=== PATIENT | female | born 1935 | race Caucasian/White ===

== ENCOUNTER 2023-05-12 13:40 | Emergency (ER) | payer OTHER, SELFPAY ==
[2023-05-12 13:44] VITALS: BP 171/73
[2023-05-12 14:03] VITALS: BMI 37.8
--- NOTE | 2023-05-12 14:46 | ED.SKININJ ---
HPI-Injury
<Julianna Powers, HOTEL ATTENDANT - Last Filed: 05/13/23 14:50>
General
Chief Complaint: Skin Problem
Source: patient and family (Daughter at bedside)
Exam Limitations: none
Time Seen by Provider: 05/12/23 14:22
Nursing documentation reviewed up to this point in time: agreed with
Travel History
Have you had any contact with someone who has COVID-19?: No
Do you have any symptoms of coronavirus? Fever > 100 degrees, chills, cough, shortness of breath, sore throat, loss of taste or smell, muscle aches, or headache?: No
History of Present Illness-Injury
Initial Injury comments:
87-year-old female from home with history of HTN, HLD, states she developed pain in the anterior aspect of her left lower leg this morning. Her noted that the area was red. She denies fever or chills. No known injury. Denies chest pain
or trouble breathing.
Past History
<Julianna Powers, HOTEL ATTENDANT - Last Filed: 05/13/23 14:50>
Past History
ED Past Medical History: HTN, Hypercholesterolemia, Other (Chronic cough) and Other (Urinary incontinence, osteoarthritis, constipation)
ED Past Surgical History: Gynecological (Total hysterectomy), Orthopedic (Left total hip replacement) and Other (Right breast lumpectomy, melanoma excision left leg)
Social History
Tobacco: Non-smoker
Alcohol: None
Drug: None
Personal:
Living: with family
Employment: Retired
Review of Systems
<Julianna Powers, HOTEL ATTENDANT - Last Filed: 05/13/23 14:50>
Review of Systems
Allergies reviewed?: Yes
All Other Systems: ROS reviewed and negative except as documented in HPI and ROS
Constitutional: Denies fever or chills
Respiratory: Denies trouble breathing
Cardiac: Denies chest pain
ABD/GI: Denies abdominal pain, nausea, vomiting or diarrhea
: Reports incontinence; Denies dysuria
Musculoskeletal: Reports edema (Both feet are puffy 2+ edema, lower extremities trace edema) and back pain (History of left-sided sciatica, recently finished a steroid taper for this)
Skin: Reports other (Tender red area anterior aspect of left lower leg)
Neurological: Denies headache
Phy Exam
<Julianna Powers HOTEL ATTENDANT - Last Filed: 05/13/23 14:50>
Physical Exam
Physical Exam:
GENERAL: No acute distress. A&Ox3.
CONSTITUTIONAL: Afebrile.
EYES: Clear, conjunctivae normal
ENMT: moist mucus membranes, Pharynx nl
RESPIRATORY: Regular respirations, nonlabored, lungs clear.
CARDIOVASCULAR: Regular rate and rhythm, no murmurs, no rubs.
GI: Soft, nontender, normal BS
MUSCULOSKELETAL: Moves with ease. Well perfused. +2 pitting edema dorsum of both feet, trace edema both lower legs.
SKIN: Warm, dry, pink. 15 x 15 erythematous tender, smooth area anterior LLE. Skin intact
PSYCH: Normal mood and affect. Well kept, interactive and appropriate
NEUROLOGIC: Awake, alert and oriented. No focal neurological deficits
Course
<Julianna Powers, HOTEL ATTENDANT - Last Filed: 05/13/23 14:50>
Orders/Labs/Results
Orders:
Orders
05/12/23 14:45
US Periph Venous LOWER Ext LT Urgent
Comment:
Reason For Exam: red, swollen, painful
05/12/23 14:58
Complete Blood Count/With Diff Urgent
Comprehensive Metabolic Panel Urgent
05/12/23 15:50
Doxycycline [Vibramycin] 100 mg PO NOW STA
Abnormal Lab Results
05/12/23
14:58
RBC 3.19 L 10^6/uL
(4.20-5.40)
Hgb 10.5 L g/dL
(12.0-16.0)
Hct 30.4 L %
(37.0-47.0)
MCH 32.9 H pg
(27.0-31.0)
Plt Count 116 L 10^3/uL
(130-400)
Absolute Lymphs (auto) 1.1 L 10^3/uL
(1.2-3.4)
Lymphocytes % 15.5 L %
(20.5-51.1)
BUN 27 H mg/dl
(7-17)
Glucose 132 H mg/dl
(70-99)
Total Protein 5.1 L g/dl
(6.3-8.2)
Albumin 2.8 L g/dl
(3.5-5.0)
05/12/23 14:58
05/12/23 14:58
Vital Signs
Initial and Last Documented VS:
Initial Vital Signs
Temp Pulse Resp BP Pulse Ox
98.1 F 74 16 171/73 96
05/12/23 13:44 05/12/23 13:44 05/12/23 13:44 05/12/23 13:44 05/12/23 13:44
Last Documented Vital Signs
Temp Pulse Resp BP Pulse Ox
98.1 F 74 16 150/59 95
05/12/23 13:44 05/12/23 13:44 05/12/23 13:44 05/12/23 15:30 05/12/23 15:45
Eating Disorder Psychologist consulted with Physician
Eating Disorder Psychologist consulted with physician?: Yes
Name of Physician Consulted: Neftaly
<Kenny Higginbotham, DO - Last Filed: 05/12/23 15:52>
Orders/Labs/Results
Orders:
Orders
05/12/23 14:45
US Periph Venous LOWER Ext LT Urgent
Comment:
Reason For Exam: red, swollen, painful
05/12/23 14:58
Complete Blood Count/With Diff Urgent
Comprehensive Metabolic Panel Urgent
05/12/23 15:50
Doxycycline [Vibramycin] 100 mg PO NOW STA
Abnormal Lab Results
05/12/23
14:58
RBC 3.19 L 10^6/uL
(4.20-5.40)
Hgb 10.5 L g/dL
(12.0-16.0)
Hct 30.4 L %
(37.0-47.0)
MCH 32.9 H pg
(27.0-31.0)
Plt Count 116 L 10^3/uL
(130-400)
Absolute Lymphs (auto) 1.1 L 10^3/uL
(1.2-3.4)
Lymphocytes % 15.5 L %
(20.5-51.1)
BUN 27 H mg/dl
(7-17)
Glucose 132 H mg/dl
(70-99)
Total Protein 5.1 L g/dl
(6.3-8.2)
Albumin 2.8 L g/dl
(3.5-5.0)
05/12/23 14:58
05/12/23 14:58
Vital Signs
Initial and Last Documented VS:
Initial Vital Signs
Temp Pulse Resp BP Pulse Ox
98.1 F 74 16 171/73 96
05/12/23 13:44 05/12/23 13:44 05/12/23 13:44 05/12/23 13:44 05/12/23 13:44
Last Documented Vital Signs
Temp Pulse Resp BP Pulse Ox
98.1 F 74 16 150/59 95
05/12/23 13:44 05/12/23 13:44 05/12/23 13:44 05/12/23 15:30 05/12/23 15:45
<Julianna Powers, HOTEL ATTENDANT - Last Filed: 05/13/23 14:50>
MDM/Problems Addressed
Differential Diagnosis Includes:
Cellulitis, DVT
MDM/Problems Addressed:
87-year-old female from home with history of HTN, HLD, states she developed pain in the anterior aspect of her left lower leg this morning. Her noted that the area was red. She denies fever or chills. No known injury. Denies chest pain
or trouble breathing
05/12/2023 1536 PM
CBC with no clinically significant abnormality.
CMP: BUN mildly elevated at 27, total protein and albumin are on the low side
Ultrasound left lower extremity reveals no DVT
05/12/[address] Higginbotham in to evaluate, agrees with home antibiotics and Lasix
Red area on LLE marked for observation.
Pt stable for discharge, is comfortable going home.
<Julianna Powers, HOTEL ATTENDANT - Last Filed: 05/13/23 14:50>
*Critical Care Note
Total Time (30-74mins, 75-104mins- exclusive of procedures): Not Applicable
ED Attending Note
<Julianna Powers, HOTEL ATTENDANT - Last Filed: 05/13/23 14:50>
-
Portions of this chart may have been created with voice recognition software.� Occasional wrong word or��sound alike� substitutions may have occurred due to the inherent limitations of voice recognition software.
<Kenny Higginbotham DO - Last Filed: 05/12/23 15:52>
ED Attending Note
Patient seen and examined by attending physician: Yes
I performed the substantive portion of visit, reviewed & personally made and approve the management plan that is documented in note by myself or REID.: Yes
ED Attending Note:
Patient is a 87-year-old female presents to the emergency department with redness of her left lower leg that started this morning. Patient was treated with prednisone for sciatica approximately 2 weeks ago and after that she seemed to develop edema
lower extremities. There is a family history of DVT. Patient denies any chest pain or shortness of breath. Patient denies fever chills or decreased appetite. On physical exam patient is no distress. Patient's abdomen is soft nontender. Lungs
are clear. Patient has +1 pitting edema pretibial and into the ankles and feet bilaterally. Patient has distal pulses. Patient does have erythema on the anterior inferior third of the left leg. Patient's lab work is essentially unchanged. Will
start the patient on low-dose Lasix and antibiotic. Patient's ultrasound is unremarkable
Discharge Plan
Departure
Patient Disposition: Home (Routine Discharge)
Date of Disposition: 05/12/23
Time of Disposition: 15:51
Patient with high blood pressure during this ER visit?: No
Discharge Problem:
Cellulitis of left lower extremity, Edema of both lower legs
Instructions: Swelling, Cellulitis (Skin Infection), Adult ED
Prescriptions:
New
doxycycline hyclate 100 mg capsule
100 mg PO BID Qty: 20 0RF
furosemide [Lasix] 20 mg tablet
20 mg PO DAILY Qty: 14 0RF
No Action
Centrum Silver Women 1 EACH tablet
1 ea PO DAILY
sennosides [senna] 1 TABLET tablet
2 tab PO BID PRN (Reason: constipation)
acetaminophen [Tylenol Extra Strength] 500 MG tablet
1,000 mg PO QID PRN (Reason: pain)
lisinopril 20 MG tablet
20 mg PO DAILY
simvastatin 20 MG tablet
20 mg PO HS
metoprolol tartrate 50 MG tablet
25 mg PO BID
escitalopram oxalate 5 MG tablet
5 mg PO DAILY
donepezil 5 mg Tablet
5 mg PO DAILY
Myrbetriq 25 mg Tablet Extended Release 24 Hr
25 mg PO DAILY
aspirin 81 mg Capsule
81 mg PO DAILY
Referrals:
Erika Sawant MD [Family Provider] - Call in 1-3 days for appt
Activity Restrictions/Additional Instructions:
As we discussed, I sent a prescription to your pharmacy for the antibiotic doxycycline to take twice a day for the next 10 days for the infection on your left lower leg.
I also sent a prescription to your pharmacy for Lasix to take daily to help decrease the swelling in your lower legs and feet. It will make you urinate more.
Call Dr. Sawant's office Sunday morning and make an appointment for sometime that week for a repeat check of your leg infection and your lower leg and feet swelling.
Return here immediately if the red area spreads more than 2 inches past the marked area, you develop fever or chills, worsening pain and swelling, vomiting or feeling sicker in any way.
Interventions
Interventions:
*Risk Screen - Suicide Last Done: 05/12/23 13:57
*General Assessment Last Done: 05/12/23 16:24
*Neglect/Abuse Screening Last Done: 05/12/23 13:57
ED- Fall Risk Assessment Last Done: 05/12/23 14:04
*ED COVID-19 Vaccine History Last Done: 05/12/23 13:44
*Nursing Disposition Last Done: 05/12/23 16:24
ED-Skin Assessment Last Done: 05/12/23 14:06
Discharge Date and Time
Discharge Date/Time: 05/12/23 16:24
[2023-05-12 15:06] LABS: % Basophils 0.4 % (0-2); % Eosinophils 2.3 % (0-6); % Immature Granulocytes 0.3 % (0-0.5); % Lymphocytes 15.5 % (20.5-51.1); % Monocytes 9.1 % (1.7-9.3); % Neutrophils 72.4 % (42.2-75.2); Absolute Eosinophils 0.2 10^3/uL (0-0.7); Absolute Lymphocytes 1.1 10^3/uL (1.2-3.4); Absolute Monocytes 0.6 10^3/uL (0.1-0.6); Hematocrit 30.4 % (37.0-47.0); Hemoglobin 10.5 g/dL (12.0-16.0); Mean Corp Hgb Conc. 34.5 g/dL (33.0-37.0); Mean Corpuscular Hgb 32.9 pg (27.0-31.0); Mean Corpuscular Volume 95.3 fL (81.0-99.0); Nucleated Red Blood Cells % 0 %; Platelet Count 116 10^3/uL (130-400); Red Blood Cell Count 3.19 10^6/uL (4.20-5.40); Red Cell Dist. Width 13.7 % (11.5-14.5); White Blood Cell Count 6.9 10^3/uL (4.8-10.8)
[2023-05-12 15:25] LABS: ALT (SGPT) 24 U/L (0-35); AST (SGOT) 20 U/L (14-36); Albumin 2.8 g/dl (3.5-5.0); Alkaline Phosphatase 49 U/L (38-126); Blood Urea Nitrogen 27 mg/dl (7-17); Calcium 8.7 mg/dl (8.4-10.2); Carbon Dioxide 27 mmol/L (22-30); Chloride 105 mmol/L (98-107); Estimated Creatinine Clearance 51 ml/min; Glucose 132 mg/dl (70-99); Potassium 4.1 mmol/L (3.5-5.1); Sodium 138 mmol/L (135-145); Total Bilirubin 0.4 mg/dl (0.2-1.3); Total Protein 5.1 g/dl (6.3-8.2); eGFR > 60.00
[2023-05-12 15:30] VITALS: BP 150/59
[2023-05-12] MEDS: VIBRAMYCIN 100 MG PO (16:08)
== END 2023-05-12 16:24 | disposition home or self-care (01) ==
LOC: EMR 13:40
PROVIDERS: Registered Nurse; EMERGENCY PHYSICIAN Emergency Medicine; FAMILY PHYSICIAN Internal Medicine
DX: L03.116 Cellulitis of left lower limb (principal); R60.0 Localized edema; M79.662 Pain in left lower leg; I10 Essential (primary) hypertension; E78.00 Pure hypercholesterolemia, unspecified; M19.90 Unspecified osteoarthritis, unspecified site; R05.3 Chronic cough; Z96.642 Presence of left artificial hip joint; Z85.820 Personal history of malignant melanoma of skin; Z88.8 Allergy status to other drugs, medicaments and biological substances; Z79.82 Long term (current) use of aspirin
CPT/HCPCS: 99284; 80053; 85025; 93971

== ENCOUNTER 2023-08-01 11:02 | Outpatient (RCR) | payer OTHER, SELFPAY | END 2023-08-01 23:59 | disposition home or self-care (01) | LOC: ROT 11:02 | PROVIDERS: ATTENDING PHYSICIAN Nurse Practitioner Adult Health; FAMILY PHYSICIAN Internal Medicine | DX: R41.89 Other symptoms and signs involving cognitive functions and awareness (principal); Z73.6 Limitation of activities due to disability | CPT/HCPCS: 97167 ==

== ENCOUNTER 2024-07-14 13:00 | Inpatient (IN) | payer OTHER, SELFPAY ==
[2024-07-12 19:58] VITALS: BP 186/80; BMI 36.7
[2024-07-12 20:27] LABS: % Basophils 0.3 % (0-2); % Eosinophils 2.5 % (0-6); % Immature Granulocytes 0.2 % (0-0.5); % Lymphocytes 16.3 % (20.5-51.1); % Monocytes 8.6 % (1.7-9.3); % Neutrophils 72.1 % (42.2-75.2); Absolute Eosinophils 0.2 10^3/uL (0-0.7); Absolute Lymphocytes 1.4 10^3/uL (1.2-3.4); Absolute Monocytes 0.8 10^3/uL (0.1-0.6); Absolute Neutrophils 6.3 10^3/uL (1.4-6.5); Hematocrit 33.1 % (37.0-47.0); Hemoglobin 11.3 g/dL (12.0-16.0); Mean Corp Hgb Conc. 34.1 g/dL (33.0-37.0); Mean Corpuscular Hgb 32.3 pg (27.0-31.0); Mean Corpuscular Volume 94.6 fL (81.0-99.0); Mean Platelet Volume 9.6 fL (7.4-10.4); Nucleated Red Blood Cells % 0 %; Platelet Count 166 10^3/uL (130-400); Urine Albumin 1+ (Neg - Trace); Urine Bilirubin Negative (Negative); Urine Character Clear (Clear); Urine Color Yellow; Urine Glucose Negative (Negative); Urine Ketone Negative (Negative); Urine Leukocyte Negative (Negative); Urine Nitrite Negative (Negative); Urine Occult Blood Negative (Negative); Urine Specific Gravity 1.025 (<1.030); Urine Urobilinogen Negative (Neg - 1+); White Blood Cell Count 8.8 10^3/uL (4.8-10.8)
[2024-07-12 20:41] LABS: ALT (SGPT) 21 U/L (0-35); AST (SGOT) 20 U/L (14-36); Albumin 3.6 g/dl (3.5-5.0); Alkaline Phosphatase 55 U/L (38-126); Blood Urea Nitrogen 24 mg/dl (7-17); Calcium 9.1 mg/dl (8.4-10.2); Carbon Dioxide 27 mmol/L (22-30); Chloride 105 mmol/L (98-107); Estimated Creatinine Clearance 44 ml/min; Glucose 119 mg/dl (70-99); Potassium 4.4 mmol/L (3.5-5.1); Sodium 137 mmol/L (135-145); Total Bilirubin 0.6 mg/dl (0.2-1.3); Total Protein 6.2 g/dl (6.3-8.2); eGFR 48.63
[2024-07-12 20:51] LABS: Urine Red Blood Cell 0-2 /HPF (0-2); Urine White Cell 0-2 /HPF (0-5)
[2024-07-12 20:52] LABS: Urine Bacteria Few (Negative); Urine Mucus Moderate
[2024-07-12 21:00] VITALS: BP 185/73
--- NOTE | 2024-07-12 21:52 | ED.GENMED ---
History of Present Illness
General
Chief Complaint: Change in Mental Status
Source: spouse and family
Time Seen by Provider: 07/12/24 21:10
History of Present Illness
History of Present Illness:
88-year-old female presents to the emergency room due to confusion, difficulty speaking. Patient does have some level of cognitive decline. However the family feels like she has had a dramatic change in the past 24 hours. Patient indicated to
them she also had a headache. Patient unable to provide much in the way of history.
Past History
Past History
ED Past Medical History: HTN, Hypercholesterolemia, Other (Chronic cough) and Other (Urinary incontinence, osteoarthritis, constipation)
ED Past Surgical History: Gynecological (Total hysterectomy), Orthopedic (Left total hip replacement) and Other (Right breast lumpectomy, melanoma excision left leg)
Social History
Tobacco: Non-smoker
Alcohol: None
Drug: None
Personal:
Living: with family
Employment: Retired
Phy Exam
Physical Exam
Physical Exam:
General: Awake, slow to answer questions, somewhat confused, appears stated age and chronically ill
Vitals: Hypertensive
Head: Atraumatic
Eyes: Pupils equal, EOMI
Throat: Airway intact, no exudates
Neck: Trachea midline
Lungs: Clear and equal b/l
Heart: Regular rate, no murmurs
Abd: Soft, Nontender, No pulsatile mass
Neuro: Cranial nerves intact, muscle strength equal bilaterally
Skin: Warm, dry, no rash
Extremities: pulses equal b/l, 2+ edema
Course
Orders/Labs/Results
Orders:
Orders
07/12/24 20:15
CT Head W/o Iv Contrast Urgent
Comment:
Reason For Exam: confusion
07/12/24 20:20
CMP [Comprehensive Metabolic Panel] Urgent
Complete Blood Count/With Diff Urgent
Urinalysis Reflex To Culture Urgent
Date Specimen was Collected: 07/12/24
Time Specimen was Collected: 20:15
Urine Microscopic Reflex Cult Urgent
07/12/24 22:12
Acetaminophen [Tylenol] 1,000 mg PO NOW STA
07/12/24 23:41
Labetalol HCl [Trandate] 10 mg IV NOW STA
07/13/24
Electrocardiogram (*1) Stat
Comment: DONE
07/13/24 01:30
Admit/Transfer Patient As Directed
Co-Sign Provider:
Level of Care: Observation services
Assign to:: Telemetry
Physician / Group: John
Diagnosis: Confusion
Reason for Telemetry: CVA/TIA
Date to Stop Telemetry: 07/16/24
Time to Stop Telemetry: 11:00
PRN Pain Medication Management As Directed
May give lesser potent ordered pain med per pt: Yes
preference::
Protocol:: Medication orders for pain may be administered in a
manner that supports deferring to patient preference
when the pt is:
- Requesting an ordered lesser potent pain medication.
Least to most potent pain medications are defined
as: acetaminophen < NSAID < tramadol < opioids
(morphine, oxycodone, hydromorphone).
- Requesting a lesser dose of the same medication IF
ORDERED.
- Requesting a less intrusive route of administration
if both routes are prescribed by the provider (PO <
IV).
07/13/24 01:31
Code Status As Directed
Resuscitation Status: Full Code
07/13/24 02:41
Acetaminophen [Tylenol] 650 mg PO Q4HPRN PRN
Dextrose 50%-Water [Dextrose 50% Syringe] 12.5 grams IV [id number] PRN
Furosemide [Lasix] 20 mg PO Q48H
Glucagon [GlucaGen] 1 mg IM PRN PRN
07/13/24 02:41
Case Management Consult ONCE
Case Management Consult: Discharge Planning
Activity As Directed
Activity Level: Ambulate
With Assistance
Bedside Glucose Monitoring As Directed
Frequency: AC&HS
Additional Instructions:: Change to q6h if pt on TPN, tube feeding or not eating
EKG with chest pain [ECG as needed] As Directed
ECG as needed for:: Chest Pain
I/O [Intake/ Output] As Directed
Frequency: Per unit guidelines
Neurological Checks As Directed
Frequency: q4h
Pneumatic Compression Sleeves As Directed
Type: Knee high
Vital Signs As Directed
Frequency: Per unit guidelines
Weight As Directed
Frequency: Daily
Oxygen Therapy [O2 Therapy] [RESP] Routine
Titrate/Wean O2 to maintain O2 sat greater than (%): 94
Ot Eval And Treat Routine
PT Consult [Pt Eval And Treat] Routine
Activity Level: Ambulate
With Assistance
Speech Therapy Eval & Treat Routine
DX Deep Vein Thrombosis Video Routine
07/13/24 03:23
TSH Reflex To Free T4 Routine
07/13/24 03:25
Pt Screening Request from Irene Routine
07/13/24 06:00
MR Brain Without Contrast IN AM
Comment:
Reason For Exam: CVA / TIA
Recent pill cam endoscopy?: No
07/13/24 06:17
Basic Metabolic Panel IN AM
Cardiovascular Evaluation IN AM
Complete Blood Count/No Diff IN AM
Glycohemoglobin (HgbA1c) Routine
Magnesium Routine
Comment: ADD ON
NT-proBNP Routine
Comment: ADD ON
07/13/24 06:52
Metoprolol [Lopressor] 5 mg IV NOW STA
07/13/24 07:01
CR Chest Portable - 1 View Stat
Comment:
Reason For Exam: SOB
Reason Study Needs to be Portable: Unable to Transport
07/13/24 07:02
Ipratropium/Albuterol Sulfate [Duoneb] 3 ml INH R Q4HPRN PRN
07/13/24 07:03
Diphenhydramine [Benadryl] 6.25 mg IV NOW STA
07/13/24 07:30
Insulin Aspart Corrective Low [Novolog Flexpen-Low Resistance] See Protocol SC AC
07/13/24 08:00
Aspirin Chewable [Low Strength Aspirin] 81 mg PO DAILY
Donepezil [Aricept] 5 mg PO DAILY
Escitalopram Oxalate [Lexapro] 5 mg PO DAILY
Lisinopril [Zestril] 30 mg PO DAILY
Metoprolol [Lopressor] 50 mg PO BID
07/13/24 13:31
COVID-19 Antigen Urgent
Source: Nasal Swab
07/13/24 13:35
Influenza A+B Rapid Molecular Urgent
YAYA Source: Nasal Swab
Specimen Description:
07/13/24 14:33
CARDIOLOGY CONSULT Routine
Consulting Provider: Gerson Kruger
Was physician already notified: Yes
Reason for consult: New Afib paroxysmal
07/13/24 14:42
NEUROLOGY CONSULT Routine
Consulting Provider: Mariano Guzman
Was physician already notified: Yes
Reason for consult: Eval risk of bleeding from cerebral amyloid angiopathy /chronic SAH withAC
07/13/24 Dinner
IDDSI 4 - Pureed
At Your Request: Limited Participation
07/13/24 15:45
Amiodarone [Cordarone] 900 mg DEXTROSE 5% PVC-free BAG [D5W PVC-free BAG] 500 ml IV PER PROTOCOL
Initial Dose in mg/min:: 1
Duration of initial dose (hours):: 6
Subsequent dose in mg/min:: 0.5
Duration of subsequent dose (hours):: 18
Maximum dose in mg/min:: 1
Hold and notify provider if:: Heart rate < 60 BPM or SBP < 90 mmHg or MAP < 60 mmHg
07/13/24 18:00
Atorvastatin [Lipitor] 10 mg PO QPM
07/14/24 06:[address] Non Medication Order As Directed
Physician Order: One time order 07/14/24 at 6am to restart amiodarone gtt with rate of 0.5mg/min, then to
follow amiodarone order/ protocol
Above order entered?: Yes
07/14/24 08:54
Metoprolol [Lopressor] 100 mg PO BID
07/14/24 10:14
Metoprolol [Lopressor] 100 mg PO NOW STA
07/14/24 10:24
Echo 2D MMode Color/Doppler Routine
Reason for Study: AF
07/14/24 20:00
Amiodarone [Pacerone] 400 mg PO BID
07/16/24 11:00
DC Protocol for Telemetry ONCE
Abnormal Lab Results
07/12/24 07/13/24 07/13/24
20:20 06:17 07:14
WBC 11.7 H 10^3/uL
(4.8-10.8)
RBC 3.50 L 10^6/uL 3.66 L 10^6/uL
(4.20-5.40) (4.20-5.40)
Hgb 11.3 L g/dL 11.7 L g/dL
(12.0-16.0) (12.0-16.0)
Hct 33.1 L % 34.6 L %
(37.0-47.0) (37.0-47.0)
MCH 32.3 H pg 32.0 H pg
(27.0-31.0) (27.0-31.0)
Absolute Monos (auto) 0.8 H 10^3/uL
(0.1-0.6)
Lymphocytes % 16.3 L %
(20.5-51.1)
BUN 24 H mg/dl 21 H mg/dl
(7-17) (717)
Creatinine 1.1 H mg/dL
(0.6-1.0)
Glucose 119 H mg/dl 130 H mg/dl
() ()
Hemoglobin A1c 6.3 H %
(4.0-5.6)
Total Protein 6.2 L g/dl
(6.3-8.2)
Triglycerides 151 H mg/dl
(10-149)
Urine Bacteria (Reflex) Few A
(Negative)
Urine Albumin (Reflex) 1+ A
(Neg - Trace)
POC Glucose 154 H mg/dl
()
07/13/24 07/13/24 07/13/24
12:43 17:25 21:11
WBC
RBC
Hgb
Hct
MCH
Absolute Monos (auto)
Lymphocytes %
BUN
Creatinine
Glucose
Hemoglobin A1c
Total Protein
Triglycerides
Urine Bacteria (Reflex)
Urine Albumin (Reflex)
POC Glucose 158 H mg/dl 153 H mg/dl 169 H mg/dl
() () ()
07/14/24 07/14/24
07:13 11:43
WBC
RBC
Hgb
Hct
MCH
Absolute Monos (auto)
Lymphocytes %
BUN
Creatinine
Glucose
Hemoglobin A1c
Total Protein
Triglycerides
Urine Bacteria (Reflex)
Urine Albumin (Reflex)
POC Glucose 173 H mg/dl 193 H mg/dl
(70-99) (70-99)
07/13/24 06:17
07/13/24 06:17
Vital Signs
Initial and Last Documented VS:
Initial Vital Signs
Temp Pulse Resp BP Pulse Ox
98.9 F 69 30 186/80 93
07/12/24 19:58 07/12/24 19:58 07/12/24 19:58 07/12/24 19:58 07/12/24 19:58
Last Documented Vital Signs
Temp Pulse Resp BP Pulse Ox
98.7 F 88 18 145/65 95
07/14/24 15:14 07/14/24 15:14 07/14/24 15:14 07/14/24 15:14 07/14/24 15:14
MDM/Problems Addressed
Differential Diagnosis Includes:
Progression of dementia, CVA, UTI, electrolyte abnormality
MDM/Problems Addressed:
Head CT shows no acute abnormalities. Labs do not show a reason for her declining. Perhaps the patient has had a small CVA not detectable on CAT scan. Seems most likely to be a progression of her chronic cognitive disorder however. Will
hospitalize the patient for further evaluation workup to exclude urgent process
*Radiology
Radiology exam reviewed: radiology read reviewed
*Pulse Oximetry
Patient hypoxic: no
*Satellite Installer Interpretation
Rate: normal
Interpretation: normal
Rhythm: sinus
*Critical Care Note
Total Time (30-74mins, 75-104mins- exclusive of procedures): Not Applicable
ED Attending Note
-
Portions of this chart may have been created with voice recognition software.� Occasional wrong word or��sound alike� substitutions may have occurred due to the inherent limitations of voice recognition software.
Discharge Plan
Departure
Patient Disposition: Admit
Date of Disposition: 07/12/24
Time of Disposition: 23:45
Admit to: IMU
Presentation/result/management discussed w/ accepting MD/DO: Hospitalist
Condition: Fair
Discharge Problem:
Acute confusion, Hypertension, uncontrolled
Interventions
Interventions:
*Risk Screen - Suicide Last Done: 07/12/24 19:58
*General Assessment Last Done: 07/12/24 19:58
*Neglect/Abuse Screening Last Done: 07/12/24 19:58
*ED- Fall Risk Assessment Last Done: 07/12/24 19:58
*ED COVID-19 Vaccine History Last Done: 07/12/24 21:01
*Nursing Disposition Last Done: 07/13/24 02:34
ED- Pulmonary Assessment Last Done: 07/12/24 21:01
ED- Neurological Assessment Last Done: 07/12/24 21:01
ED- Cardiac Assessment Last Done: 07/12/24 21:01
ED Swallowing Screen Last Done: 07/12/24 21:10
Discharge Date and Time
Discharge Date/Time: 07/13/24 02:35
[2024-07-12 22:24] VITALS: BP 188/84
[2024-07-12] MEDS: TYLENOL 1000 MG PO (23:01)
[2024-07-12 23:48] VITALS: BP 173/71
[2024-07-12] MEDS: TRANDATE 10 MG IV (23:48)
[2024-07-13] VITALS (14 sets, daily range): BP systolic 140–185; BP diastolic 58–130; PULSE 74–75; O2SAT 93; BMI 35.9
--- NOTE | 2024-07-13 01:33 | HPS.HSE ---
Family Physician
-
Family Physician: Erika Sawant
Chief Complaint
-
Confusion, Gait Dysfunction
History of Present Illness
Patient is an 88y F with PMH significant for hypertension, DM-II and dementia who presents to ED for evaluation of increased confusion and gait dysfunction. History obtained primarily from daughter at the bedside due to patient's dementia /
confusion. Daughter states that patient has had significant functional and cognitive decline over the past several months. Within the past few weeks, she has at times not recognized her own family members. She has a chronic tremor - mostly of the
LUE - which has been extensively evaluated as an outpatient with no definitive etiology discovered.
This evening, patient was ambulating in the home and found that she was 'leaning to the right'. He assisted her to the bathroom and contacted his daughters. They advised him to call 911 for concern of possible stroke symptoms.
In the ED, patient has no recall of these events and is not able to state where she is or any of her medical histories.
She is resting comfortably and appears in no acute distress.
Medical History
Past Medical History
Past Medical History: Reports Other
Additional Past Medical History:
Hypertension
DM-II
Prior CVA (diagnosed by imaging - asymptomatic)
Anxiety / Depression
Melanoma
Endometrial Cancer
Obesity
Dementia
Past Surgical History: Reports Other
Additional Past Surgical History:
Right Breast Biopsy
Tubal Ligation
D&C
Robotic Hysterectomy / BSO
Left BETTINA
Melanoma Excision
Social History
Tobacco: Non-smoker
Alcohol: None
Drug: None
Personal:
Living: With Family
Family History
Family History: Other (Mother: CVA Daughter: CVA)
Allergies / Home Medications
Allergies reflects when Allergies were last updated in [facility].
Home Medications with original date entered in [facility]
Allergy/Medication List:
Allergies
Allergy/AdvReac Type Severity Reaction Status Date / Time
Calcium Channel Blocking Allergy Shortness Verified 07/12/24 20:14
Agent Dilt of breath,
weakness,
tired
verapamil Allergy Shortness Verified 07/12/24 20:14
of breath,
weakness,
tired
Home Medications
[id number] 8 mg-folic 400 mcg-K 50 mcg-lutein 300 mcg tablet (Centrum Silver Women) 1 ea PO DAILY Supplement 06/06/18
acetaminophen 500 mg tablet (Tylenol Extra Strength) 1,000 mg PO QID PRN pain 03/15/20
escitalopram oxalate 5 mg tablet 5 mg PO DAILY Mental Health/Anxiety 03/15/20
lisinopril 20 mg tablet 30 mg PO DAILY Blood pressure 03/15/20
metoprolol tartrate 50 mg tablet 50 mg PO BID Blood pressure 03/15/20
sennosides 8.6 mg tablet (senna) 2 tab PO BID PRN constipation 03/15/20
simvastatin 20 mg tablet 20 mg PO HS High cholesterol 03/15/20
aspirin 81 mg capsule 81 mg PO DAILY 05/12/23
donepezil 5 mg tablet 5 mg PO DAILY 05/12/23
mirabegron 25 mg tablet,extended release 24 hr (Myrbetriq) 50 mg PO DAILY 05/12/23
furosemide 20 mg tablet (Lasix) 20 mg PO .EVERYOTHERDAY 07/13/24
Review of Systems
-
History Source: Patient and Family
A 12 point ROS was completed and negative except as noted: Yes
Constitutional: Reports Fatigue; Denies Fever or Chills
Respiratory: Denies Cough or Trouble Breathing
Cardiac: Denies Chest Pain or Palpitations
Abdomen/GI: Denies Abdominal Pain, Nausea, Vomiting or Diarrhea
: Reports Frequency and Urgency; Denies Dysuria or Flank Pain
Musculoskeletal: Denies Joint Pain or Edema
Neurological: Reports Headache; Denies Dizzy
Psych: Reports Depression, Anxiety and Dementia
Physical Exam
Vital Signs
Vital Signs
Temp Pulse Resp BP Pulse Ox
98.9 F 72 27 168/62 95
07/12/24 19:58 07/13/24 01:00 07/13/24 01:00 07/13/24 01:00 07/13/24 00:30
Physical Exam
General: Other (88y F in no acute distress.)
HEENT: Moist mucous membranes and PERRLA
Respiratory: Clear; No Wheezes, Rales or Rhonchi
Cardiac: S1/S2, Regular Rhythm and Murmur (II/ STACY)
GI: Soft, Non Tender, Non Distended and Normal Bowel Sounds
Musculoskeletal: No Clubbing, No Cyanosis and No Edema
Neuro: Awake, Alert, Nonfocal/grossly intact and Other (Tremor of the LUE that waxes / wanes - not clearly associated with intent. No focal weakness / sensory deficit.); No Oriented
Psych: Apparent Dementia
Laboratory Results
-
07/12/24 20:20
07/12/24 20:20
Laboratory Results
Total Bilirubin 0.6 mg/dl (0.2-1.3) 07/12/24 20:20
AST 20 U/L (14-36) 07/12/24 20:20
ALT 21 U/L (0-35) 07/12/24 20:20
Alkaline Phosphatase 55 U/L (38-126) 07/12/24 20:20
Impression/Plan
-
A/P: Patient is an 88y F with PMH significant for HTN, DM-II and dementia who presents to ED for evaluation of confusion and ataxia.
Ataxia
Confusion
- Observe overnight for further evaluation and treatment.
- Seems likely that current symptoms are due to progression of dementia.
- Family notes both prior episodes of confusion and gait dysfunction prior to today.
- CT head unremarkable in the ED. Exam non-focal.
- Check MRI in the AM.
- PT / OT evaluations.
- CM evaluation for home services +/- placement.
- Continue daily ASA, statin, etc.
- Continue Aricept.
Benign Hypertension
- BP elevated on initial arrival and has improved after dose of labetalol here in the ED.
- Patient apparently received none of her medications today (family has today's PillPack completely full).
- Resume usual BP medications and follow for improvement. Adjust regimen as needed.
DM-II
- Not on any listed DM medications.
- Follow glucose. Check A1C.
OAB
- Hold Myrbetriq given uncontrolled hypertension.
Senile Dementia
Anxiety / Depression
- Continue current medications.
DVT Prophylaxis: SCDs
Code Status: Full
--- NOTE | 2024-07-13 03:00 | PTCARENOTE ---
Pt received from ED at 0245 via stretcher. Pt pleasant, AAOX1, VVS, and pulled over into bed from stretcher. Pt absent of pain at this time. Pt bed in lowest position and call pollock within reach. Pt educated on importance of call pollock usage, pt
confused. Pt on bed alarm - alarm plugged in. Will continue with current plan of care.
[2024-07-13] MEDS: LASIX 20 MG PO (03:30)
[2024-07-13 04:25] LABS: TSH Reflex To Free T4 2.05 uIU/ml (0.47-4.68)
[2024-07-13] MEDS: LOPRESSOR 5 MG IV (07:00)
[2024-07-13 07:09] LABS: Hematocrit 34.6 % (37.0-47.0); Hemoglobin 11.7 g/dL (12.0-16.0); Mean Corp Hgb Conc. 33.8 g/dL (33.0-37.0); Mean Corpuscular Volume 94.5 fL (81.0-99.0); Mean Platelet Volume 9.8 fL (7.4-10.4); Platelet Count 160 10^3/uL (130-400); Red Blood Cell Count 3.66 10^6/uL (4.20-5.40); White Blood Cell Count 11.7 10^3/uL (4.8-10.8)
--- NOTE | 2024-07-13 07:10 | W.PN.UPDATE ---
Update Note
Progress Note Update
Reported by the nursing staff that the patient is a-fib with hr in 140s, bp 150/80, SPO2 94% on RA. afebrile. Patient currently on Metoprolol BID.
On exam, patient is tachypneic, Complaining of sob, denies chest pain. Lung sound noted with Wheezing.
-Ekg done, bmp result is pending, mag and BNP added to the lab.
-Duo nebs PRN ordered for sob and wheezing
-Chest x-ray, covid and flu test ordered.
-One time 5mg of IV Lopressor given.
-Patient currently on telemetry.
[2024-07-13 07:16] LABS: Glucose - Point of Care 154 mg/dl (70-99)
[2024-07-13 08:01] LABS: Blood Urea Nitrogen 21 mg/dl (7-17); Calcium 9.1 mg/dl (8.4-10.2); Carbon Dioxide 28 mmol/L (22-30); Chloride 102 mmol/L (98-107); Estimated Creatinine Clearance 53 ml/min; Glucose 130 mg/dl (70-99); HDL Cholesterol 42 mg/dl; LDL Cholesterol, Calculated 93 mg/dl; Magnesium 1.9 mg/dl (1.6-2.3); Potassium 3.9 mmol/L (3.5-5.1); Sodium 137 mmol/L (135-145); Total Cholesterol 165 mg/dl (50-199); Triglyceride 151 mg/dl (10-149); Very Low Density Lipoprotein 30 mg/dl (0-30); eGFR > 60.00
[2024-07-13 08:10] LABS: NT-proBNP 1090 pg/ml
[2024-07-13] MEDS: BENADRYL 6.25 MG IV (08:17)
[2024-07-13] MEDS: LOW STRENGTH ASPIRIN 81 MG PO (08:19)
[2024-07-13] MEDS: ARICEPT 5 MG PO (08:19)
[2024-07-13] MEDS: ZESTRIL 30 MG PO (08:20)
[2024-07-13] MEDS: LEXAPRO 5 MG PO (08:21)
[2024-07-13] MEDS: LOPRESSOR 50 MG PO ×2 (08:21→20:14)
[2024-07-13] MEDS: NOVOLOG FLEXPEN-LOW RESISTANCE 1 UNITS SC ×3 (08:26→17:29)
[2024-07-13 12:44] LABS: Glucose - Point of Care 158 mg/dl (70-99)
[2024-07-13 13:55] LABS: COVID-19 Antigen Negative (Negative)
--- NOTE | 2024-07-13 14:44 | W.PN.HOSP.TC ---
Today's Communication/Plan
-
Consult cardiology
Consult neurology
Assessment / Plan
Assessment / Plan
A/P: Patient is an 88y F with PMH significant for HTN, DM-II and dementia who presents to ED for evaluation of confusion and ataxia.
Ataxia
Confusion
Weakness
- MRI of the brain shows no evidence of acute stroke
-Afebrile and no white count on admission. UA negative. Chest x-ray without evidence of infection.
-New atrial fibrillation paroxysmal noted and unclear if the weakness is from tachycardia.
-Check PT eval. She is known to have Parkinson's disease with dementia.
New onset of paroxysmal fibrillation
16 beat of V. tach versus SVT with aberrancy
-Hemodynamically stable
-Continue the beta-ann
-Consult cardiology
Parkinson disease with dementia-follows with a local neurologist. MRI of the brain shows chronic hemosiderin deposition in the cerebral sulci raising concern for chronic subarachnoid hemorrhage versus cerebral amyloid angiopathy. As the patient
may benefit from anticoagulation for new A-fib , consult neurology for the risk of anticoagulation.
Benign Hypertension
- BP elevated on initial arrival and has improved
- Resume usual BP medications and follow for improvement. Adjust regimen as needed.
DM-II
- Not on any listed DM medications.
- Follow glucose. Check A1C.
OAB
- Hold Myrbetriq given uncontrolled hypertension.
Senile Dementia
Anxiety / Depression
- Continue current medications.
DVT Prophylaxis: SCDs
Code Status: Full
Discussed with family
Discussed with cardiology and neurology
Total time spent on today's encounter was 52 minutes which included time spent in counseling the patient/family regarding diagnosis and treatment plan as listed above, goals of care, and symptom management. Case was discussed with nursing staff,
specialists, and care coordinators/case management. All labs and imaging personally reviewed by me. Remainder the time spent in detailed review of previous records, lab data, imaging, and other medical provider documentation.
Anticipated Discharge: 24 - 48 hours
Subjective/Interval History
-
Date of Service: July 13, 2024
Pleasantly confused. Not sure why she is in the hospital. She knows she is in the hospital. Family at bedside.
She was brought in because she was feeling weak and leaning towards the right and they were concerned for a stroke.
Objective Data
-
Labs:
Laboratory Results
07/13/24
06:17
WBC 11.7 H
Hgb 11.7 L
Hct 34.6 L
Plt Count 160
Sodium 137
Potassium 3.9
Chloride 102
Carbon Dioxide 28
BUN 21 H
Creatinine 0.9
Glucose 130 H
Calcium 9.1
Vital Signs:
Vital Signs
Temp Pulse Resp BP Pulse Ox
98.5 F 76 16 149/70 95
07/13/24 11:10 07/13/24 11:10 07/13/24 11:10 07/13/24 11:10 07/13/24 11:10
I&O
07/12/24 07/13/24 07/14/24
06:59 06:59 06:59
Output Total 400 / 400
Balance -400 / -400
Review of Systems
-
Unable to obtain full review of systems at this time due to: Other (Due to cognitive impairment)
Respiratory: Denies Trouble Breathing
Cardiac: Denies Chest Pain or Palpitations
Abdomen/GI: Denies Abdominal Pain, Nausea or Vomiting
Neuro: Denies Dizzy or Headache (Had headache at home)
Physical Exam
-
General: Comfortable
Respiratory: Clear to Auscultation and Non Labored Respirations; Negative Accessory Resp Muscle Use
Cardiac: Regular Rhythm and S1/S2
GI: Soft and Nontender
Neuro: AO x 3 and No Motor Deficits
Psych: Calm and Confused; Negative Agitated
Data Reviewed
-
Labs: Labs Reviewed by me
--- NOTE | 2024-07-13 14:51 | CON.NEURO ---
Neuro Assessment/Plan
Assessment
Patient with subacute worsening of cognition and prior history of significant dementia with changes by MRI of the brain which are suggestive of amyloid angiopathy as well as chronic right frontal hemorrhagic infarct.
The patient's dementia may be vascular based on amyloid angiopathy. The patient's tremor is most likely functional and non-parkinsonian based on DaTscan being normal in the past and the nature on examination
Plan
Would continue the patient on aspirin 81 mg daily
Would avoid anticoagulation despite presence of atrial fibrillation due to high risk for conversion of known amyloid angiopathy into hemorrhagic lesions of greater size and number
Would discontinue donepezil as that medication is unlikely to be providing any significant benefit at this time based on the patient's significant cognitive dysfunction
Continue atorvastatin 10 mg daily
Will follow-up as needed
Consultation
Order
Date of Consultation: 07/13/24
Requesting Provider: Hospitalist
Reason for Consult: Dementia
Subjective/Objective
Subjective Data
Date of Service: July 13, 2024
Adapted from my consult in 02/2020:
84 year old female who has presented to the hospital after suffering a mechanical fall. Patient reports she is an active 84-year-old whom denies using a cane or walker to ambulate. She denies a history of falls. She reports she was at her daughter's
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 She reports there was a step down out the door and she leaned forward and lost her balance resulting in a fall striking her head on the concrete porch.
She denies having loss of consciousness, dizziness lightheadedness or weakness of her extremities prior to the fall. She reports she had 2 big bumps on the back of her head and decided to seek medical attention. HCT in the emergency department
demonstrated cortical contusion of the left frontal lobe and left parietal occipital lobe.
The time of this examination patient reports that she is feeling well. She denies having any dizziness, lightheadedness, headache, weakness numbness or tingling of her extremities, visual changes or speech difficulty. She feels that her balance is
at baseline. Hematomas on the back of her head are reportedly smaller today.
Abrupt onset of minor head injury with striking left forehead
CT of head demonstrated small left frontal hemorrhagic stroke, repeated head CT demonstrated near total resolution
�No need to check MRI head
�Would restart ASA in 24 hours although no significant outpatient need from neurological perspective
�May use Atorvastatin low dose since it is not clear that the patient has high-risk for future cerebrovascular event
Adapted from office notes last from 06/2023:
86-year-old female with a past medical history of fall with head injury in February 2020 during which time she sustained a frontal lobe hemorrhage. She fell after leaning forward outside her front door to get a package off a bench. There were steps
in front of the door and when she leaned forward she lost balance and fell 2 steps down striking her head on concrete. She was seen by the neurology team on consult at [facility]. Head CT on March 16, 2020, showed a single 12 mm helical
hemorrhage consistent with hemorrhagic contusion over the posterior lateral left frontal convexity with a stable old 3 cm left frontal infarct as well as a 5 mm left frontal parietal occipital scalp hematoma. This is superimposed on mild diffuse
cortical atrophy.
Today she said presents for evaluation for memory loss and tremor. She is concerned as her father on onset of Parkinson's in his 80s and her paternal great grandmother had severe Alzheimer's. She states that over the past year to year and a
half she has experienced a tremor in her left hand only that was initially present with sustained posture and intention but has now progressed over time and is present at rest as well. It does not interfere with her everyday life. She has not
noticed any change in her handwriting or her sense of smell. No clear symptoms of RBD. She does continue to have some near falls but has not had a severe fall since her fall in February 2020.
In terms of memory, her short-term is affected more so than her long-term memory. Her family often has to tell her something and then repeated a few minutes later as she does not remember the details. She also has some word finding
difficulty. This is been progressively worsening over the past 6 months. She denies any hallucinations. She lives with her and has no issues with her ADLs. She uses [facility] to keep her medications straight and has not missed them on a
regular basis.
09/29/20: Today she notes that her left upper extremity tremor has worsened significantly and now she often wakes up with it in the morning. She has been doing physical therapy with improvement in her gait. She had a normal TSH and B12 level
drawn on September 22, 2020. B12 level was 671 she had an MRI brain done with and without contrast on September 09, 2020, at [facility] which showed 'two-point once in the medial region of chronic encephalomalacia in the anterolateral right frontal
lobe involving cortical jones matter and subcortical white matter with associated hemosiderin deposition. Mild to moderate hemosiderin deposition was seen in the sulci of both superior frontal lobes consistent with chronic bilateral subarachnoid
hemorrhage. 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 Greer's
office on August 26, 2020, which showed 'mild neuro psych logical deficits with deficits in processing speed, verbal encoding, verbal fluency, executive functioning and visual detail discrimination.' It was felt that her deficits were due to mild brain
injury following her fall in February 2020. It was also stated that 'I cannot rule out that her previous stroke was also contributory.' She was also noted to have a minor anxiety condition. It was recommended that she undergo an on road driving test
to examine her ability to safely operate a motor vehicle given her slow processing speed and visual detail discrimination.
JOSE scan 07/2020 - Mild asymmetric at posterior right putamen suspicious for striatal domanergic deficit.
Evaluation with Dr. Coley:
'Interval history:
Pt seen in the office today with her daughter. She reports that her tremor might improve on Sinemet partially. No resting tremor. Tremor mainly occurs with posturing and eating. She has been taking 1 tab three time a day. No SE of Sinemet. Pt
has no stiffness. She has falls in the past after ICH from fall in late 2019. But no fall recently.
No hallucinations. Memory has been stable. She completed PT. It was suggested the at she start the parkinson's LSVT BIG program in January.'
Telehealth evaluation with Eden Lua, 04/29/2021:
'TELEHEALTH ENCOUNTER: video -ECW
LOCATION OF PROVIDER: office
LOCATION OF PATIENT: HOME
Patient initiated the visit. The patient verbally consented to the virtual check-in.
DURATION:8 minutes
Pt encounter today via telemedicine. Pt has been doing well on Sinemet 1 tab TID. She has repeated JOSE scan ordered 05/20/2021. Tremor has significantly improved. She has no complaints today. She denies recent falls. She denies hallucinations
or GI issues. Memory has been stable.'
08/29/21: She never had the driving evaluation done and would find the on road driving evaluation too stressful; she says she is willing to do the OT evaluation through . She had a repeat JOSE scan done at [facility], but we never got the result.
She continues to take Sinemet. She never started taking ASA. When she is upset, her tremor gets worse. She also reports that twice over the last 2-3 her tremor has spread to involve her RUE when it previously affected only the left. Her daughter has
taken over the bills, and her now monitors her cooking. She has been sleeping more and has stopped driving long distances.
Evaluation with Eden Lua, 09/30/2021:
'Patient seen today in the office with her . Her daughter was called as she was unable to be here today. Patient continues with Sinemet 1 tablet 3 times a day. She denies any adverse side effects except afternoon dose states she has a
bad taste because she is he not taking it with food. Symptoms are unchanged. We still did not get DaTscan from [facility]. She still does not have occupational driving screen. '
11/18/21: She is having her driving assessment done on November 29. No falls. Mood has been fairly stable; she is occasionally a bit down. She continues to take Lexapro. She is seeing urology for incontinence. We finally received the results from
[facility] regarding her DaTscan which was normal and not suggestive of any parkinsonian syndrome. Her daughter subsequently cut back her Sinemet to twice daily, and she has been on this for about a week. She is interested in taking medication for her
memory.
(01/19/2022)
Patient seen in the office with her daughter. Patient did start Aricept 5 mg at night for memory stabilization. She does report she had a few bouts of diarrhea. She only started the Aricept about 2 weeks ago. She has not seen any decline in
her memory. Not yet had driving evaluation completed. Her has been ill. She has stopped her Sinemet since her last appointment. She has not seen any increase in any Parkinson's-like symptoms.
(06/01/2022)
Patient seen in the office today with her daughter. She and her daughter both feel her memory is stable. She has been taking Aricept 5 mg. GI symptoms have resolved. She has had no recent falls. She has had no hallucinations. She only has a
tremor when she is severely upset.
(12/21/2022)
Pt seen in the office today with her daughter. She has continued on Aricept 5 mg daily. Dosage was previously not increased d/t GI issues (unclear if it was secondary to medications). Patient and family feel that memory has declined time and
are now willing to try increased dosage. Her daughter feels she may have sleep apnea
She admits to sleep she is taking 2 'sleep gummies a night' (which are actually probiotics) as well as 2 magnesium pills. She did have a fall 2 months ago when she fell out of bed. Her only injury was her finger, she was seen at urgent care.
Her finger has healed well.
Today (07/05/2023)
TELEHEALTH ENCOUNTER : Video ECW
Pt encounter via telemedicine with her daughters. They report that memory has continued to decline. She continues on Aricept 10 mg daily. She seems to be tolerating this well. She seems out of it at times. She did have sleep study completed
that did show significant sleep apnea. She has not been using mask or machine. She has not had any recent falls.
~~~~
Patient returned to this hospital's emergency department due to worsening confusion. The confusion is described as having been significantly worse in the last 24 hours with the patient also experiencing significant headache. This consultation was
placed to determine if the patient would be a candidate for anticoagulation as the patient was found during this hospitalization to have acute onset of paroxysmal atrial fibrillation.
Objective Data
Vital Signs
Temp Pulse Resp BP Pulse Ox
36.9 C 76 16 149/70 95
07/13/24 11:10 07/13/24 11:10 07/13/24 11:10 07/13/24 11:10 07/13/24 11:10
Lab Results
07/13/24 06:17
07/13/24 06:17
Sodium 137 mmol/L (135-145) 07/13/24 06:17
Potassium 3.9 mmol/L (3.5-5.1) 07/13/24 06:17
BUN 21 mg/dl (7-17) H 07/13/24 06:17
Glucose 130 mg/dl (70-99) H 07/13/24 06:17
Calcium 9.1 mg/dl (8.4-10.2) 07/13/24 06:17
Pnu-C-Txahjxbnwsk Pept Cancelled 07/13/24 07:09
LDL Cholesterol, Calc 93 mg/dl 07/13/24 06:17
Patient Allergies
Calcium Channel Blocking Agent Dilt Allergy (Verified 07/12/24 20:14)
Shortness of breath, weakness, tired
verapamil Allergy (Verified 07/12/24 20:14)
Shortness of breath, weakness, tired
Review of Systems
-
Unable to obtain full review of systems at this time due to: Dementia
History Source: Patient
All other systems: Reviewed and negative
Neuro: Negative Dizzy or Headache
Physical Exam
-
General: No Apparent Distress, Obese, Appears Stated Age and Wearing Oxygen
Eyes: Round OU, [place] Conjunctivae and No Ptosis
HEENT: Anicteric and Moist Mucous Membranes
Neck: Full Range of Motion
Respiratory: No Dyspnea
Cardiac: No JVD
GI: Non-distended
Skin: Unremarkable
Extremities: No Clubbing, No Cyanosis and No Edema
Psych: Negative Intact Judgement/Insight
Extended Neurological Exam
Mood & Affect: Mood Unremarkable and Affect Unremarkable
Attention Span & Concentration: Awake, Alert, Interactive, Unable to Perform 2 Step Request and Other (Moderate difficulty with single step requests)
Memory: Able to Recall (Own name), Reduced (For recall of month and year as well as location, although she does recall that this is a hospital) and Unable to Recall Personal History
Tremor: Hand Tremor Absent, Distal and Amplitude (medium, crescendo-decrescendo, with action and without action, left hand more than right)
Involuntary Movement: None
Speech: Quality Unremarkable and Severely Reduced Output
Cranial Nerve II: Left Eye: Pupillary Reactivity Unremarkable, Pupillary Size Unremarkable and Visual Peter Intact
Cranial Nerve II: Right Eye: Pupillary Reactivity Unremarkable, Pupillary Size Unremarkable and Visual Peter Intact
Cranial Nerves III, IV, : Extraocular Movement: Reduced (Upgaze bilaterally, otherwise intact)
Cranial Nerve VII: Facial Symmetry: Normal Facial Symmetry
Cranial Nerve VIII: Hearing: Unremarkable Hearing to Normal Conversational Volume
Muscle Strength, Overall: Full Throughout
Muscle Bulk & Tone: Bulk Unremarkable and Tone Unremarkable
Pronator Drift: No Drift in Upper Extremities and No Drift in Lower Extremities
Deep Tendon Reflexes: Absent Throughout
Cold Sensation: Unable to Assess
Vibration Sensation: Unable to Assess
Touch Sensation: Unremarkable
Coordination: Reaches for Objects without Difficulty
Babinski Sign: Absent Bilaterally
Gait & Station: Negative Up from Seated Without Problem
Data Reviewed
-
MRI Head: Report Reviewed and Image Reviewed
Labs: Report Reviewed
Reviewed with: Physician, Patient and Family
Old Records: Summarized
Medications
-
Active Medications
Generic Name Dose Route Start Last Admin
Trade Name Freq PRN Reason Stop Dose Admin
Acetaminophen 650 mg 07/13/24 02:41
Acetaminophen 325 Mg Tablet PO 08/10/24 02:40
Q4HPRN PRN
Mild Pain / Temp > 101
Albuterol/Ipratropium 3 ml 07/13/24 07:02
Ipratropium 0.5/Albuterol 3 Mg (3 Ml Ampul) INH
R Q4HPRN PRN
SOB or wheezing
Protocol
Aspirin 81 mg 07/13/24 08:00 07/13/24 08:19
Aspirin 81 Mg Chewable Tablet PO 08/10/24 07:59 81 mg
DAILY MADHURI Administration
Atorvastatin Calcium 10 mg 07/13/24 18:00
Atorvastatin (Lipitor) 10 Mg Tablet PO 08/10/24 17:59
QPM MDAHURI
Dextrose 12.5 grams 07/13/24 02:41
Dextrose 50% (0.5 Grams/Ml) 50 Ml Syringe IV 08/10/24 02:40
[id number] PRN
hypoglycemia
Protocol
Donepezil HCl 5 mg 07/13/24 08:00 07/13/24 08:19
Donepezil 5 Mg Tablet PO 08/10/24 07:59 5 mg
DAILY MADHURI Administration
Escitalopram Oxalate 5 mg 07/13/24 08:00 07/13/24 08:21
Escitalopram 5 Mg Tablet PO 08/10/24 07:59 5 mg
DAILY MADHURI Administration
Furosemide 20 mg 07/13/24 02:41 07/13/24 03:30
Furosemide 20 Mg Tablet PO 08/10/24 02:40 20 mg
Q48H MADHURI Administration
Glucagon 1 mg 07/13/24 02:41
Glucagon 1 Mg Vial IM 08/10/24 02:40
PRN PRN
hypoglycemia
Protocol
Insulin Aspart 0 units 07/13/24 07:30 07/13/24 13:33
Insulin Aspart Low Resistance 300 Units/3 Ml Pen.Injctr SC 08/10/24 07:29 1 units
AC MADHURI Administration
Protocol
Lisinopril 30 mg 07/13/24 08:00 07/13/24 08:20
Lisinopril 20 Mg Tablet PO 08/10/24 07:59 30 mg
DAILY MADHURI Administration
Metoprolol Tartrate 50 mg 07/13/24 08:00 07/13/24 08:21
Metoprolol 50 Mg Regular Release Tablet PO 08/10/24 07:59 50 mg
BID MADHURI Administration
Home Medications
�Medication �Instructions �Recorded
pfmduhsq-eyde-brum 8 mg-folic 400 1 ea PO DAILY Supplement 06/06/18
mcg-K 50 mcg-lutein 300 mcg tablet
(Centrum Silver Women)
acetaminophen 500 mg tablet 1,000 mg PO QID PRN pain 03/15/20
(Tylenol Extra Strength)
escitalopram oxalate 5 mg tablet 5 mg PO DAILY Mental Health/Anxiety 03/15/20
lisinopril 20 mg tablet 30 mg PO DAILY Blood pressure 03/15/20
metoprolol tartrate 50 mg tablet 50 mg PO BID Blood pressure 03/15/20
sennosides 8.6 mg tablet (senna) 2 tab PO BID PRN constipation 03/15/20
simvastatin 20 mg tablet 20 mg PO HS High cholesterol 03/15/20
aspirin 81 mg capsule 81 mg PO DAILY 05/12/23
donepezil 5 mg tablet 5 mg PO DAILY 05/12/23
mirabegron 25 mg tablet,extended 50 mg PO DAILY 05/12/23
release 24 hr (Myrbetriq)
furosemide 20 mg tablet (Lasix) 20 mg PO .EVERYOTHERDAY 07/13/24
Past History
Past History
ED Past Medical History: Cancer (Endometrial 2017), CVA (Chronic right frontal lobe), HTN, Hypercholesterolemia, Psychiatric (Major depression), Other (Chronic cough, dementia, obstructive sleep apnea, osteopenia) and Other (Urinary incontinence,
osteoarthritis, constipation)
ED Past Surgical History: Gynecological (Total hysterectomy), Orthopedic (Left total hip replacement) and Other (Right breast lumpectomy, melanoma excision left leg)
Social History
Tobacco: Non-smoker
Alcohol: None
Drug: None
Personal:
Living: with family
Employment: Retired
Family History
Family History: Other (Reviewed and noncontributory)
--- NOTE | 2024-07-13 15:19 | CM ---
Addendum entered by Gisell Monsalve 07/13/24 15:53:
[facility] form explained to daughterJimmy; form signed @ 1547
SNF preferences identified: #1 [facility]; #2 [facility]; #3 [facility]; referrals sent via [facility]
Plan: Discharge to SNF pending bed availability and AUTH approval
Addendum entered by Gisell Monsalve 07/13/24 15:40:
PT recommends SNF
Daughters given list of facility options to consider; instructed to identify 3 sites to sent referrals
DaughterJimmy, given phone # for CM office and will call in AM with site preferences
Original Note:
Initial assessment completed with saul Marquez
Primary Contacts are daughters Jimmy # [phone]; and Shalini ([employer]) # [phone]
[facility] [address]
Daughter reported that patient lives with 90 year old independent in a split level home; 0 steps to enter; 5 steps between levels; mother's bedroom and bath on upper level; bath has walk-in shower w/ grab bars and seat
Daughter reported that patient no longer attempts to do anything for herself; daughters and spouse bathe, dress and completed ADLs
Patient refuses to use device when ambulating. During the day, patient stays on lower level family room; bathroom available; bilateral railings on stairs
No history of SNF or Home Health utilization
Family will transport home
Discharge plan unknown at this time; CM will monitor and support as needed
--- NOTE | 2024-07-13 15:37 | CON.CAR ---
Consultation
Consultation Request
Date/Time Consultation Requested: 07/13/24, 230pm
Date/Time Consultation Performed: 07/13/24, 3pm
Requesting Provider: Jakob
Performing Provider: Saskia
Reason for Consultation: A fib with RVR
Medical History
-
Chief Complaint: confusion, weakness
History of Present Illness:
88 yo female with PMH of dementia, hemorrhagic stroke, cerebral amlyoid angiopathy, HTN, hyperlipidemia is admitted with weakness/confusion. We are consulted for A fib with RVR.
Patient answers basic questions. Family present and provides additional information.
Past Medical History
Past Medical History: Cancer (endometrial), CVA (hemorrhagic), HTN and Hypercholesterolemia
Past Surgical History: Gynecological (hysterectomy) and Orthopedic (left hip)
Social History
Tobacco: Non-Smoker
Family History
Family History: Early CAD (none)
Allergies / Home Medications
Allergy/AdvReac Type Severity Reaction Status Date / Time
Calcium Channel Blocking Allergy Shortness Verified 07/12/24 20:14
Agent Dilt of breath,
weakness,
tired
verapamil Allergy Shortness Verified 07/12/24 20:14
of breath,
weakness,
tired
�Medication �Instructions �Recorded �Confirmed �Type
yackojrt-heus-yrqd 8 mg-folic 400 1 ea PO DAILY Supplement 06/06/18 07/13/24 History
mcg-K 50 mcg-lutein 300 mcg tablet
(Centrum Silver Women)
acetaminophen 500 mg tablet 1,000 mg PO QID PRN pain 03/15/20 07/13/24 History
(Tylenol Extra Strength)
escitalopram oxalate 5 mg tablet 5 mg PO DAILY Mental Health/Anxiety 03/15/20 07/13/24 History
lisinopril 20 mg tablet 30 mg PO DAILY Blood pressure 03/15/20 07/13/24 History
metoprolol tartrate 50 mg tablet 50 mg PO BID Blood pressure 03/15/20 07/13/24 History
sennosides 8.6 mg tablet (senna) 2 tab PO BID PRN constipation 03/15/20 07/13/24 History
simvastatin 20 mg tablet 20 mg PO HS High cholesterol 03/15/20 07/13/24 History
aspirin 81 mg capsule 81 mg PO DAILY 05/12/23 07/13/24 History
donepezil 5 mg tablet 5 mg PO DAILY 05/12/23 07/13/24 History
mirabegron 25 mg tablet,extended 50 mg PO DAILY 05/12/23 07/13/24 History
release 24 hr (Myrbetriq)
furosemide 20 mg tablet (Lasix) 20 mg PO .EVERYDAY 07/13/24 07/13/24 History
Review of Systems
-
Unable to obtain full review of systems at this time due to: Dementia
History Source: Patient and Family
Neurological: Dizzy and Weakness
Physical Exam
Vital Signs
Temp Pulse Resp BP Pulse Ox
98.5 F 76 16 149/70 95
07/13/24 11:10 07/13/24 11:10 07/13/24 11:10 07/13/24 11:10 07/13/24 11:10
Lab Results
07/13/24 06:17
07/13/24 06:17
Eei-W-Nnbrspzznxr Pept Cancelled 07/13/24 07:09
Physical Exam
General: Well Developed and Well Nourished
HEENT: Normocephalic and Anicteric
Respiratory: Clear and Non Labored Respirations
Cardiac: S1/S2 (normal), Regular Rhythm, Murmur (none), Peripheral Edema (none) and JVD (none)
Musculoskeletal: No Clubbing, No Cyanosis and No Edema
Skin: Warm and Dry
Neuro: Awake and Tremors (left)
Psych: Confused
Impression / Plan
-
88 yo female with PMH of advanced dementia, hemorrhagic stroke, cerebral amlyoid angiopathy, HTN, hyperlipidemia is admitted with weakness/confusion. We are consulted for A fib with RVR.
# A fib with RVR
-paroxysmal, and back in sinus
-already on metoprolol tartrate 50mg bid for blood pressure: continue
-start IV amiodarone to maintain sinus
-requires monitoring on tele
-CHADS2-VASC = 6. OAC discussed in detail with neurology and family. Patient is high risk for bleeding with hemorrhagic stroke, cerebral amlyoid angiopathy; and not an acceptable candidate for OAC.
# NSVT
-conservative/med mgmt only
-continue metoprolol
-amiodarone as above
-check echo
# HTN
-continue metoprolol and lisinopril
# Hyperlipidemia
-cont atorvastatin
Data Reviewed
-
EKG: Tracing Personally Visualized and interpreted (A fib with RVR), Discussed with Patient, Discussed with Family and Other (Tele: Afib--> NSR with run of NSVT)
Labs: Labs Reviewed by me, Discussed with Patient and Discussed with Family
[2024-07-13] MEDS: CORDARONE 518 MG IV (16:40)
--- NOTE | 2024-07-13 16:45 | PTOTSP ---
SPEECH THERAPY SWALLOW EVALUATION:
Patient exhibits clinical signs of oropharyngeal dysphagia, likely chronic 2/2 history of dementia/CVA and acutely exacerbated by tenuous respiratory status. CXR concerning for pneumonia. Patient remains at risk for aspiration and related
complications given confusion and tenuous respiratory status. Recommend IDDSI Level 4 Puree diet, thin liquids via single cup sips only, NO STRAWS. Medications whole in puree. Aspiration precautions: Upright positioning; 1:1 assistance and 100%
supervision; Ensure oral cavity clear prior to next bite; Only feed when awake/alert; Monitor for signs of aspiration and d/c oral diet if any decline in mental/respiratory status. Oral care 3x/day. ST to follow, assess diet tolerance and modify as
appropriate, provide continued family education regarding safe swallow strategies/aspiration precautions, determine indication for instrumental assessment of swallowing as appropriate (However, suspect that given patient's body habitus, imaging
would be limited for VSE). Discussed recommendations with patient/family who were in agreement with plan.
RECOMMEND:
1) IDDSI Level 4 Puree diet, thin liquids via single cup sips only, NO STRAWS
2) Medications whole in puree
3) Aspiration precautions: Upright positioning; 1:1 assistance and 100% supervision to ensure patient taking small, single sips; Slow rate of intake; Ensure oral cavity clear prior to next bite; Only feed when awake/alert; Monitor for signs of
aspiration and d/c oral diet if any decline in mental/respiratory status
4) Oral care 3x/day
5) ST to follow, determine indication for instrumental assessment of swallowing as appropriate (However, suspect that given patient's body habitus, imaging would be limited for VSE)
[2024-07-13 17:26] LABS: Glucose - Point of Care 153 mg/dl (70-99)
[2024-07-13] MEDS: LIPITOR 10 MG PO (17:29)
[2024-07-13 21:12] LABS: Glucose - Point of Care 169 mg/dl (70-99)
--- NOTE | 2024-07-13 23:00 | PTCARENOTE ---
Pt's heart rate controlled, currently normal sinus at 59 bpm. Provider notified and amiodarone gtt HELD. Will continue to monitor
[2024-07-14 03:30] VITALS: BP 111/53
[2024-07-14 06:00] VITALS: BMI 36.5
--- NOTE | 2024-07-14 06:02 | PTCARENOTE ---
Pt's HR transitioned back to a-fib. HR - 100s-120s. Pt asymptomatic. Provider notified. Amiodarone gtt started at 0.5 mg/min per order. Will continue to monitor
[2024-07-14 07:14] LABS: Glucose - Point of Care 173 mg/dl (70-99)
[2024-07-14 07:50] VITALS: BP 135/80
[2024-07-14 08:21] LABS: Glycohemoglobin (HgbA1c) 6.3 % (4.0-5.6)
--- NOTE | 2024-07-14 08:50 | W.PN.CD ---
Today's Communication / Plan
-
Increase metoprolol to 100 mg twice daily
Continue IV Amio
Echo once back in sinus rhythm
Impression / Plan
-
88 yo female with PMH of advanced dementia, hemorrhagic stroke, cerebral amlyoid angiopathy, HTN, hyperlipidemia is admitted with weakness/confusion. We are consulted for A fib with RVR.
# A fib with RVR
-paroxysmal
-Increase metoprolol to 100 mg twice daily
-Continue IV amiodarone. Can consider switching to p.o. tomorrow if she is in sinus.
-requires monitoring on tele
-CHADS2-VASC = 6. OAC discussed in detail with neurology and family. Patient is high risk for bleeding with hemorrhagic stroke, cerebral amyloid angiopathy; and not an acceptable candidate for OAC.
# NSVT
-conservative/med mgmt only
-continue metoprolol
-amiodarone as above
-check echo once no longer afib w RVR
# HTN
-continue metoprolol and lisinopril
# Hyperlipidemia
-cont atorvastatin
Subjective: Back in A-fib as of 5 AM this morning. Asymptomatic.
Physical Exam
Vital Signs/Labs
Vital Signs
Temp Pulse Resp BP Pulse Ox
98.3 F 80 20 135/80 100
07/14/24 07:50 07/14/24 07:50 07/14/24 07:50 07/14/24 07:50 07/14/24 07:50
07/13/24 07/14/24 07/15/24
06:59 06:59 06:59
Actual Weight 100.896 kg 102.597 kg
07/13/24 06:17
07/13/24 06:17
Magnesium Cancelled 07/13/24 06:46
Triglycerides 151 mg/dl (10-149) H 07/13/24 06:17
LDL Cholesterol, Calc 93 mg/dl 07/13/24 06:17
VLDL Cholesterol, Calc 30 mg/dl (0-30) 07/13/24 06:17
HDL Cholesterol 42 mg/dl 07/13/24 06:17
07/13/24 07/13/24
06:17 07:09
Kxs-O-Wumatavtwwi Pept 1090 Cancelled
Physical Exam
Constitutional: No acute distress and Comfortable
Cardiovascular: Pedal edema is absent, Rhythm/rate is irregular and Murmur/rub/gallop absent
Respiratory: Respiratory effort normal and Crackles Present
Data Reviewed
-
Date of Service: July 14, 2024
Medical Decision Making: Reviewed Test Results, Independent Historian Assessment, Test Interpretation and Review of Case with other Provider
EKG: Tracing Personally Visualized and interpreted
Echo: Report Reviewed by me
Labs: Labs Reviewed by me
[2024-07-14] MEDS: NOVOLOG FLEXPEN-LOW RESISTANCE 1 UNITS SC ×3 (10:03→16:57)
[2024-07-14] MEDS: LEXAPRO 5 MG PO (10:04)
[2024-07-14] MEDS: ZESTRIL 30 MG PO (10:04)
[2024-07-14] MEDS: LOW STRENGTH ASPIRIN 81 MG PO (10:04)
[2024-07-14] MEDS: LOPRESSOR PO (10:13)
[2024-07-14] MEDS: LOPRESSOR 100 MG PO (10:18)
[2024-07-14 11:07] VITALS: BP 162/88
[2024-07-14 11:45] LABS: Glucose - Point of Care 193 mg/dl (70-99)
--- NOTE | 2024-07-14 12:02 | PTCARENOTE ---
Addendum entered by Geno Jones RN 07/14/24 12:54:
sinus pause/ bradycardic 30-40's HR
Original Note:
Patient showing sinus pause on tele, patient is resting in bed and denies any chest pain, dizziness, or sudden change. MD Fontenot notified and new orders placed. IV amiodarone stopped at this time and will continue to monitor.
--- NOTE | 2024-07-14 15:06 | W.PN.HOSP.TC ---
Today's Communication/Plan
-
Assessment / Plan
Assessment / Plan
General: No Apparent Distress, Comfortable
HEENT: NormoCephalic, Moist mucous membranes, Atraumatic
Respiratory: Clear and Non Labored Respirations
Cardiac: Irregular rhythm, tachycardic with heart rate around 110
GI: Soft, Non Tender, Non Distended and Normal Bowel Sounds
Musculoskeletal: No Edema, no deformity
: NO Sawyer
Neuro: Awake, Alert, Nonfocal/grossly intact
Psych: Calm and cooperative
A/P: Patient is an 88y F with PMH significant for HTN, DM-II and dementia who presents to ED for evaluation of confusion and ataxia.
Ataxia
Confusion
Weakness
-History of dementia, apparently previous thought to be parkinsonian considering tremor though family report at most recent neurology follow-up they were told not due to Parkinson's
- MRI of the brain shows no evidence of acute stroke but does show chronic right frontal hemorrhagic infarct and possible amyloid angiopathy
-Afebrile and no white count on admission. UA negative. Chest x-ray without evidence of infection.
-New atrial fibrillation paroxysmal noted and unclear if the weakness is from tachycardia.
-PT recommending SNF
-Evaluated by neurology recommend continuing low-dose aspirin and statin, discontinuing donepezil as it is unlikely to be providing any benefit
-Will need outpatient neuropsychiatric evaluation which is planned for sometime this July
New onset of paroxysmal fibrillation
-Continues to be in A-fib with uncontrolled rate
-Remains on IV amiodarone, transition to p.o. tomorrow 07/15
-Cardiology increased metoprolol tartrate to 100 mg p.o. twice daily today 07/14
-Will obtain echocardiogram once back in sinus rhythm
-Avoid anticoagulation considering evidence of cerebral amyloid angiopathy and prior hemorrhagic infarct
Benign Hypertension
- BP elevated on initial arrival and has improved
- Resume home lisinopril 30 mg daily
-Adjust regimen as needed
DM-II
- Not on any listed DM medications.
- Mildly elevated hemoglobin A1c of 6.3%
-Would liberalize blood glucose goals considering age and comorbidities
-Low intensity sliding scale insulin for now
OAB
- Hold Myrbetriq given uncontrolled hypertension.
-Gets bladder Botox injections every 4 months which family reports seems to help even her mental status
Senile Dementia
Anxiety / Depression
- Continue current medications.
-Planned outpatient neurology follow-up in July for neuropsychiatric testing
DVT Prophylaxis: SCDs
Code Status: Full
Discussed with family
Total time spent on today's encounter was 45 minutes which included time spent in counseling the patient/family regarding diagnosis and treatment plan as listed above, goals of care, and symptom management. Case was discussed with nursing staff,
specialists, and care coordinators/case management. All labs and imaging personally reviewed by me. Remainder the time spent in detailed review of previous records, lab data, imaging, and other medical provider documentation.
Anticipated Discharge: 24 - 48 hours
Subjective/Interval History
-
Date of Service: July 14, 2024
Patient was seen and examined at bedside. No acute distress. Remains tachycardic on IV amiodarone. Cardiology increase metoprolol to 100 mg twice daily.
Objective Data
-
Vital Signs:
Vital Signs
Temp Pulse Resp BP Pulse Ox
98.3 F 116 18 162/88 96
07/14/24 11:07 07/14/24 11:07 07/14/24 11:07 07/14/24 11:07 07/14/24 11:07
I&O
07/13/24 07/14/24 07/15/24
06:59 06:59 06:59
Intake Total 480 / 480
Output Total 400 / 400 600 / 600
Balance -400 / -400 -120 / -120
Review of Systems
-
History Source: Patient
All other systems: Reviewed and negative
Physical Exam
-
General: No Apparent Distress
[2024-07-14 15:14] VITALS: BP 145/65
[2024-07-14 15:44] LABS: Glucose - Point of Care 185 mg/dl (70-99)
--- NOTE | 2024-07-14 15:47 | W.PN.UPDATE ---
Update Note
Progress Note Update
Called for bradycardia seen on tele. Reviewed tele, rapid Afib with conversion pauses/junctional beats then several sinus beats and back to Afib 110s-120s. Plan to continue PO Amiodarone loading 400mg BID, will reduce Lopressor to 25mg BID and
continue to monitor on tele.
--- NOTE | 2024-07-14 15:48 | CM ---
Spoke w/ POA/daughter, Shalini, regarding rehab referral updates. [facility] is willing to accept patient pending bed availability, [facility] not have any beds as [facility] are at full capacity. [facility] interested [facility]. Spoke w/ [facility], discussed patient will be STR only not LTC. June requesting financial application in case family is unable to care for patient after rehab. Discussed w/ Shalini about financial application though they are just seeking STR for patient.
Shalini agreeable to have application sent to her via email to review and discuss w/ patient's spouse.
Plan: SNF; pending accepting facility and auth
[2024-07-14] MEDS: LIPITOR 10 MG PO (17:00)
[2024-07-14] MEDS: PACERONE 400 MG PO (20:35)
[2024-07-14] MEDS: LOPRESSOR 25 MG PO (20:38)
[2024-07-14 20:48] VITALS: BP 111/78
[2024-07-14 21:45] LABS: Glucose - Point of Care 146 mg/dl (70-99)
[2024-07-14 22:00] VITALS: BP 131/69
[2024-07-15] VITALS (8 sets, daily range): BP systolic 104–133; BP diastolic 53–77; PULSE 60; O2SAT 97; BMI 35.6
[2024-07-15] MEDS: LOPRESSOR 25 MG PO ×2 (00:29→08:19)
[2024-07-15] MEDS: LASIX 20 MG PO (03:37)
[2024-07-15 07:36] LABS: Glucose - Point of Care 136 mg/dl (70-99)
[2024-07-15] MEDS: NOVOLOG FLEXPEN-LOW RESISTANCE SC ×2 (08:17→11:19)
[2024-07-15] MEDS: LEXAPRO 5 MG PO (08:18)
[2024-07-15] MEDS: LOW STRENGTH ASPIRIN 81 MG PO (08:18)
[2024-07-15] MEDS: ZESTRIL 10 MG PO (08:19)
[2024-07-15] MEDS: PACERONE 400 MG PO ×2 (08:20→19:41)
--- NOTE | 2024-07-15 08:26 | W.PN.CD ---
Today's Communication / Plan
-
Increase Metoprolol
Continue Amiodarone
Impression / Plan
-
88 yo female with PMH of advanced dementia, hemorrhagic stroke, cerebral amlyoid angiopathy, HTN, hyperlipidemia is admitted with weakness/confusion. We are consulted for A fib with RVR.
# A fib with RVR
-paroxysmal
-Increase Metoprolol to 50mg BID (her pauses yesterday were conversion pauses and are not concerning). Uptitrate cautiously.
-Continue PO Amiodarone 400mg BID.
-This is not an ideal choice given risk of chemical cardioversion with no anticoagulation, but HRs remain elevated and she has become hypotensive with higher doses of BB.
-requires monitoring on tele
-CHADS2-VASC = 6. OAC discussed in detail with neurology and family. Patient is high risk for bleeding with hemorrhagic stroke, cerebral amyloid angiopathy; and not an acceptable candidate for OAC.
# NSVT
-conservative/med mgmt only
-continue metoprolol
-amiodarone as above
# HTN
-continue metoprolol and lisinopril
# Hyperlipidemia
-cont atorvastatin
Subjective: Sleeping comfortably. Remains in atrial fibrillation with elevated rates. Metoprolol reduced yesterday due to junctional pauses.
Physical Exam
Vital Signs/Labs
Vital Signs
Temp Pulse Resp BP Pulse Ox
97.9 F 128 20 106/64 97
07/15/24 07:25 07/15/24 08:19 07/15/24 07:25 07/15/24 08:20 07/15/24 07:25
07/14/24 07/15/24 07/16/24
06:59 06:59 06:59
Actual Weight 102.597 kg 99.875 kg
07/13/24 06:17
07/13/24 06:17
Magnesium Cancelled 07/13/24 06:46
Triglycerides 151 mg/dl (10-149) H 07/13/24 06:17
LDL Cholesterol, Calc 93 mg/dl 07/13/24 06:17
VLDL Cholesterol, Calc 30 mg/dl (0-30) 07/13/24 06:17
HDL Cholesterol 42 mg/dl 07/13/24 06:17
07/13/24 07/13/24
06:17 07:09
Eou-V-Wtziotalfob Pept 1090 Cancelled
Physical Exam
Constitutional: No acute distress and Comfortable
Cardiovascular: Rhythm/rate is irregular
Respiratory: Respiratory effort normal
Data Reviewed
-
Date of Service: July 15, 2024
Medical Decision Making: Reviewed Test Results, Independent Historian Assessment, Test Interpretation and Review of Case with other Provider
EKG: Tracing Personally Visualized and interpreted
Echo: Report Reviewed by me
Labs: Labs Reviewed by me
--- NOTE | 2024-07-15 09:45 | PTCARENOTE ---
patient is in sinus arrhythmia , HR 58-61, MD Fontenot notified. OK to hold 25mg metoprolol. will continue to monitor.
[2024-07-15 11:14] LABS: Glucose - Point of Care 132 mg/dl (70-99)
--- NOTE | 2024-07-15 13:35 | PTCARENOTE ---
patient converted back into AFIB, HR 90-low 100's. Patient sitting in chair and eating lunch. MD Booth notified. will continue to monitor.
--- NOTE | 2024-07-15 15:47 | W.PN.HOSP.TC ---
Addendum entered and electronically signed by James Beckford DO 07/16/24 13:57:
Specific type of dementia is unknown but suspected vascular dementia
Original Note:
Today's Communication/Plan
-
Assessment / Plan
Assessment / Plan
General: No Apparent Distress, Comfortable
HEENT: NormoCephalic, Moist mucous membranes, Atraumatic
Respiratory: Clear and Non Labored Respirations
Cardiac: Irregular rhythm, heart rate 85
GI: Soft, Non Tender, Non Distended and Normal Bowel Sounds
Musculoskeletal: No Edema, no deformity
: NO Sawyer
Neuro: Somnolent but arousable, Nonfocal/grossly intact
Psych: Calm and cooperative
A/P: Patient is an 88y F with PMH significant for HTN, DM-II and dementia who presents to ED for evaluation of confusion and ataxia.
Ataxia
Confusion
Weakness
-History of dementia, previously thought to be parkinsonian considering tremor though family report at most recent neurology follow-up they were told not due to Parkinson's
- MRI of the brain shows no evidence of acute stroke but does show chronic right frontal hemorrhagic infarct and possible amyloid angiopathy
-Afebrile and no white count on admission. UA negative. Chest x-ray without evidence of infection.
-New atrial fibrillation paroxysmal noted and unclear if the weakness is from tachycardia, tachycardia now resolved.
-PT recommending SNF
-Evaluated by neurology recommend continuing low-dose aspirin and statin, discontinuing donepezil as it is unlikely to be providing any benefit
-Will need outpatient neuropsychiatric evaluation which is planned for sometime this July
New onset of paroxysmal fibrillation
-Rate now better controlled
-Has been transitioned to oral amiodarone load, patient is ideal for chemical cardioversion considering not on anticoagulation due to high risk for cerebral hemorrhage however patient had been significantly tachycardic and had been becoming
hypotensive with higher doses of beta-ann
-Continue metoprolol tartrate 50 mg p.o. twice daily
-Will obtain echocardiogram once back in sinus rhythm
-Avoid anticoagulation considering evidence of cerebral amyloid angiopathy and prior hemorrhagic infarct
Benign Hypertension
- Decreased lisinopril from 30 mg to 10 mg daily to avoid hypotension
-Adjust regimen as needed
DM-II
- Not on any listed DM medications.
- Mildly elevated hemoglobin A1c of 6.3%
-Would liberalize blood glucose goals considering age and comorbidities
-Low intensity sliding scale insulin for now
OAB
- Hold Myrbetriq given uncontrolled hypertension.
-Gets bladder Botox injections every 4 months which family reports seems to help even her mental status
Senile Dementia
Anxiety / Depression
- Continue current medications.
-Planned outpatient neurology follow-up in July for neuropsychiatric testing
DVT Prophylaxis: SCDs
Code Status: Full
Discussed with family
Anticipated Discharge: 24 - 48 hours
Subjective/Interval History
-
Date of Service: July 15, 2024
Patient was seen and examined at bedside this morning. Somnolent but arousable. Comfortable.
Objective Data
-
Vital Signs:
Vital Signs
Temp Pulse Resp BP Pulse Ox
97.8 F 84 18 115/53 98
07/15/24 15:32 07/15/24 15:32 07/15/24 15:32 07/15/24 15:32 07/15/24 15:32
I&O
07/14/24 07/15/24 07/16/24
06:59 06:59 06:59
Intake Total 480 / 480 720 / 720
Output Total 600 / 600
Balance -120 / -120 720 / 720
Review of Systems
-
Unable to obtain full review of systems at this time due to: Dementia
Physical Exam
-
General: No Apparent Distress
--- NOTE | 2024-07-15 16:10 | PTOTSP ---
Speech Language Pathology
Pt seen for dysphagia tx. Daughter present at bedside with another daughter on speaker phone. Pt on soft solids/thin liquids at baseline. Currently on IDDSI 4/thin liquids. Daughter fed pt lunch, and pt ate a good amount with largely good
tolerance.
Seen with P.O. trials of puree, regular solids, and thin liquids. Adequate mastication, bolus formation, and A-P transit noted with no oral residue. No overt signs of aspiration.
Given concern for PNA and family reports of occasional coughing, discussed option of VSE as needed. However, pt has not had recurrent PNA, so can defer at this time. Family in agreement.
Recommend:
(1) Upgrade to IDDSI Level 6 (soft/bite-sized) and thin liquids
(2) Aspiration precautions: sit upright, ok for straws
(3) Meds as tolerated
(4) PHYTOPATHOLOGIST to continue to follow
[2024-07-15 16:18] LABS: Glucose - Point of Care 182 mg/dl (70-99)
[2024-07-15] MEDS: NOVOLOG FLEXPEN-LOW RESISTANCE 1 UNITS SC (17:43)
[2024-07-15] MEDS: LIPITOR 10 MG PO (17:44)
[2024-07-15] MEDS: TOPROL XL 50 MG PO (19:40)
[2024-07-15 21:29] LABS: Glucose - Point of Care 155 mg/dl (70-99)
[2024-07-16] VITALS (7 sets, daily range): BP systolic 95–145; BP diastolic 62–88; PULSE 80; O2SAT 95; BMI 35.3
[2024-07-16 07:16] LABS: Glucose - Point of Care 139 mg/dl (70-99)
[2024-07-16] MEDS: NOVOLOG FLEXPEN-LOW RESISTANCE SC (07:27)
[2024-07-16] MEDS: PACERONE 400 MG PO ×2 (07:27→20:34)
[2024-07-16] MEDS: LOW STRENGTH ASPIRIN 81 MG PO (07:27)
[2024-07-16] MEDS: LEXAPRO 5 MG PO (07:28)
[2024-07-16] MEDS: TOPROL XL 50 MG PO ×2 (07:28→20:34)
[2024-07-16] MEDS: ZESTRIL 10 MG PO (07:28)
--- NOTE | 2024-07-16 08:47 | W.PN.CD ---
Today's Communication / Plan
-
Cont amio and metop if HRs remain elevated today likely increase metop tomorrow
Impression / Plan
-
88 yo female with PMH of advanced dementia, hemorrhagic stroke, cerebral amlyoid angiopathy, HTN, hyperlipidemia is admitted with weakness/confusion. We are consulted for A fib with RVR.
# A fib with RVR
-paroxysmal
-Cont Metoprolol 50mg BID (her pauses yesterday were conversion pauses and are not concerning). Uptitrate cautiously. HRs likely to become more controlled as amiodarone begins to take effect
-Continue PO Amiodarone 400mg BID.
-This is not an ideal choice given risk of chemical cardioversion with no anticoagulation, but HRs remain elevated and she has become hypotensive with higher doses of BB.
-requires monitoring on tele
-CHADS2-VASC = 6. OAC discussed in detail with neurology and family. Patient is high risk for bleeding with hemorrhagic stroke, cerebral amyloid angiopathy; and not an acceptable candidate for OAC.
# NSVT
-conservative/med mgmt only
-continue metoprolol
-amiodarone as above
# HTN
-continue metoprolol and lisinopril
# Hyperlipidemia
-cont atorvastatin
Subjective: Pleasantly confused aaox1 person only, no new complaints
Physical Exam
Vital Signs/Labs
Vital Signs
Temp Pulse Resp BP Pulse Ox
99.7 F 117 18 138/78 100
07/16/24 07:41 07/16/24 07:41 07/16/24 07:41 07/16/24 07:41 07/16/24 07:41
07/15/24 07/16/24 07/17/24
06:59 06:59 06:59
Actual Weight 220 lb 3 oz 218 lb 8 oz
Magnesium Cancelled 07/13/24 06:46
Triglycerides 151 mg/dl (10-149) H 07/13/24 06:17
LDL Cholesterol, Calc 93 mg/dl 07/13/24 06:17
VLDL Cholesterol, Calc 30 mg/dl (0-30) 07/13/24 06:17
HDL Cholesterol 42 mg/dl 07/13/24 06:17
07/13/24 07/13/24
06:17 07:09
Xoe-H-Ietuiykhuoa Pept 1090 Cancelled
Physical Exam
Constitutional: No acute distress and Comfortable
EENT: Anicteric
Cardiovascular: Rhythm/rate is irregular
Respiratory: Respiratory effort normal and Lungs clear to auscul.
GI: Soft
Neuro/Psych: Other (aaox1 person only this AM )
Data Reviewed
-
Date of Service: July 16, 2024
EKG: Tracing Personally Visualized and interpreted (af)
Medical Tests (PFT, Pathology etc): Report Reviewed by me
Labs: Labs Reviewed by me
[2024-07-16 08:49] LABS: % Basophils 0.2 % (0-2); % Eosinophils 1.4 % (0-6); % Immature Granulocytes 0.3 % (0-0.5); % Lymphocytes 9.9 % (20.5-51.1); % Monocytes 8.6 % (1.7-9.3); % Neutrophils 79.6 % (42.2-75.2); Absolute Eosinophils 0.2 10^3/uL (0-0.7); Absolute Lymphocytes 1.3 10^3/uL (1.2-3.4); Absolute Monocytes 1.1 10^3/uL (0.1-0.6); Mean Corp Hgb Conc. 33.3 g/dL (33.0-37.0); Mean Corpuscular Volume 95.9 fL (81.0-99.0); Nucleated Red Blood Cells % 0 %; Red Blood Cell Count 3.44 10^6/uL (4.20-5.40); Red Cell Dist. Width 14.3 % (11.5-14.5); White Blood Cell Count 12.6 10^3/uL (4.8-10.8)
[2024-07-16 09:20] LABS: Blood Urea Nitrogen 58 mg/dl (7-17); Calcium 8.7 mg/dl (8.4-10.2); Carbon Dioxide 23 mmol/L (22-30); Chloride 103 mmol/L (98-107); Estimated Creatinine Clearance 25 ml/min; Glucose 136 mg/dl (70-99); Potassium 4.3 mmol/L (3.5-5.1); Sodium 137 mmol/L (135-145); eGFR 25.24
[2024-07-16 11:18] LABS: Glucose - Point of Care 195 mg/dl (70-99)
[2024-07-16 12:27] LABS: Platelet Count 178 10^3/uL (130-400)
[2024-07-16] MEDS: NOVOLOG FLEXPEN-LOW RESISTANCE 1 UNITS SC ×2 (13:16→17:22)
--- NOTE | 2024-07-16 13:40 | PN.CDI ---
CDI
- -
CDI:
Physician Documentation Request
Admit Date: 07/14/24 13:00
Dear Doctor Analy,
Patient is admitted for management of atrial fibrillation.
Hospitalist progress notes contain a diagnosis of senile dementia.
Neurology consult states 'Patient with subacute worsening of cognition and prior history of significant dementia with changes by MRI of the brain which are suggestive of amyloid angiopathy as well as chronic right frontal hemorrhagic infarct.The
patient's dementia may be vascular based on amyloid angiopathy'
Please clarify the type of dementia:
Vascular
Senile
Other
Use of terms such as suspected, likely, concern for, or probable (associated with a specific diagnosis that is being evaluated, monitored, or treated as if it exists) are acceptable and can be coded in the inpatient setting, when documented at the
time of discharge.
Thank you,
Raegan Romero RN, BSN
CDI Specialist
tiger text
Please use your independent medical judgment in providing your response.
--- NOTE | 2024-07-16 15:14 | CM ---
Chart reviewed. Patient cont to need skilled rehab at d/c.
CM received email response from patient's daughter who stated she and her father are not moving forward w/ [facility] so they will not be completing the financial application. Daughter indicated that patient's heart rate is not yet stable. Daughter
stated [facility] is now first choice and for CM to follow up closer to d/c on bed availability. Daughter identified [facility] and [facility] as additional options. CM placed referrals in [facility] for review.
Patient will need insurance auth
Plan: SNF; pending accepting facility and auth
--- NOTE | 2024-07-16 15:30 | W.PN.HOSP.TC ---
Today's Communication/Plan
-
Assessment / Plan
Assessment / Plan
General: No Apparent Distress, Comfortable
HEENT: NormoCephalic, Moist mucous membranes, Atraumatic
Respiratory: Clear and Non Labored Respirations
Cardiac: Irregular rhythm, heart rate 100
GI: Soft, Non Tender, Non Distended and Normal Bowel Sounds
Musculoskeletal: No Edema, no deformity
: NO Sawyer
Neuro: Awake and alert, Nonfocal/grossly intact
Psych: Calm and cooperative
A/P: Patient is an 88y F with PMH significant for HTN, DM-II and dementia who presents to ED for evaluation of confusion and ataxia.
Ataxia
Confusion
Weakness
-History of dementia, previously thought to be parkinsonian considering tremor though family report at most recent neurology follow-up they were told not due to Parkinson's
- MRI of the brain shows no evidence of acute stroke but does show chronic right frontal hemorrhagic infarct and possible amyloid angiopathy
-Afebrile and no white count on admission. UA negative. Chest x-ray without evidence of infection.
-New atrial fibrillation paroxysmal noted and unclear if the weakness is from tachycardia, tachycardia now resolved.
-PT recommending SNF
-Evaluated by neurology recommend continuing low-dose aspirin and statin, discontinuing donepezil as it is unlikely to be providing any benefit
-Will need outpatient neuropsychiatric evaluation which is planned for sometime this July
New onset of paroxysmal fibrillation
-Rate now better controlled but still intermittently tachycardic
-Has been transitioned to oral amiodarone load, patient is not ideal for chemical cardioversion considering not on anticoagulation due to high risk for cerebral hemorrhage however patient had been significantly tachycardic and had been becoming
hypotensive with higher doses of beta-ann
-Continue metoprolol tartrate 50 mg p.o. twice daily, may need to increase dose of still not rate controlled
-Echocardiogram unremarkable
-Avoid anticoagulation considering evidence of cerebral amyloid angiopathy and prior hemorrhagic infarct
ANDREAS:
-Suspect prerenal
-Hold Lasix and lisinopril for now
-Will give 500 cc of NS
-Repeat labs in the morning to monitor renal function
Benign Hypertension
- Decreased lisinopril from 30 mg to 10 mg daily to avoid hypotension, now holding lisinopril due to ANDREAS
-Restart lisinopril when renal function normalizes, adjust regimen as needed
DM-II
- Not on any listed DM medications.
- Mildly elevated hemoglobin A1c of 6.3%
-Would liberalize blood glucose goals considering age and comorbidities
-Low intensity sliding scale insulin for now
OAB
- Hold Myrbetriq given uncontrolled hypertension.
-Gets bladder Botox injections every 4 months which family reports seems to help even her mental status
Senile Dementia
Anxiety / Depression
- Continue current medications.
-Planned outpatient neurology follow-up in July for neuropsychiatric testing
DVT Prophylaxis: SCDs
Code Status: Full
Discussed with family
Anticipated Discharge: 24 - 48 hours
Subjective/Interval History
-
Date of Service: July 16, 2024
Patient was seen and examined at bedside this morning. No acute distress. No acute events overnight.
Still intermittently tachycardic.
Objective Data
-
Labs:
Laboratory Results
07/16/24
07:24
WBC 12.6 H
Hgb 11.0 L
Hct 33.0 L
Plt Count 178
Sodium 137
Potassium 4.3
Chloride 103
Carbon Dioxide 23
BUN 58 H
Creatinine 1.9 H
Glucose 136 H
Calcium 8.7
Vital Signs:
Vital Signs
Temp Pulse Resp BP Pulse Ox
98.8 F 96 18 110/74 94
07/16/24 15:09 07/16/24 15:09 07/16/24 15:09 07/16/24 15:09 07/16/24 15:09
I&O
07/15/24 07/16/24 07/17/24
06:59 06:59 06:59
Intake Total 720 / 720 460 / 460
Balance 720 / 720 460 / 460
Review of Systems
-
Unable to obtain full review of systems at this time due to: Dementia
History Source: Patient
All other systems: Reviewed and negative
Physical Exam
-
General: No Apparent Distress
[2024-07-16] MEDS: NSS 500 IV (15:59)
[2024-07-16 16:06] LABS: Glucose - Point of Care 173 mg/dl (70-99)
[2024-07-16] MEDS: LIPITOR 10 MG PO (17:21)
[2024-07-16 21:27] LABS: Glucose - Point of Care 142 mg/dl (70-99)
[2024-07-16] MEDS: TYLENOL 650 MG PO (23:38)
[2024-07-17] VITALS (7 sets, daily range): BP systolic 105–150; BP diastolic 47–84; PULSE 65–68; O2SAT 98; BMI 35.5
[2024-07-17 07:40] LABS: Glucose - Point of Care 135 mg/dl (70-99)
[2024-07-17] MEDS: LEXAPRO 5 MG PO (08:25)
[2024-07-17] MEDS: LOW STRENGTH ASPIRIN 81 MG PO (08:25)
[2024-07-17] MEDS: NOVOLOG FLEXPEN-LOW RESISTANCE SC ×2 (08:25→16:51)
[2024-07-17] MEDS: PACERONE 400 MG PO ×2 (08:26→20:51)
[2024-07-17] MEDS: TOPROL XL 50 MG PO ×2 (08:26→20:51)
[2024-07-17 08:36] LABS: % Basophils 0.2 % (0-2); % Eosinophils 2.1 % (0-6); % Immature Granulocytes 0.4 % (0-0.5); % Monocytes 9.8 % (1.7-9.3); % Neutrophils 75.5 % (42.2-75.2); Absolute Eosinophils 0.2 10^3/uL (0-0.7); Absolute Lymphocytes 1.3 10^3/uL (1.2-3.4); Absolute Monocytes 1.1 10^3/uL (0.1-0.6); Absolute Neutrophils 8.1 10^3/uL (1.4-6.5); Hematocrit 32.6 % (37.0-47.0); Hemoglobin 10.6 g/dL (12.0-16.0); Mean Corp Hgb Conc. 32.5 g/dL (33.0-37.0); Mean Corpuscular Hgb 32.1 pg (27.0-31.0); Mean Corpuscular Volume 98.8 fL (81.0-99.0); Mean Platelet Volume 10.4 fL (7.4-10.4); Nucleated Red Blood Cells % 0 %; Platelet Count 198 10^3/uL (130-400); Red Cell Dist. Width 14.2 % (11.5-14.5); White Blood Cell Count 10.7 10^3/uL (4.8-10.8)
[2024-07-17 08:54] LABS: Blood Urea Nitrogen 64 mg/dl (7-17); Calcium 8.8 mg/dl (8.4-10.2); Carbon Dioxide 27 mmol/L (22-30); Chloride 104 mmol/L (98-107); Estimated Creatinine Clearance 22 ml/min; Glucose 135 mg/dl (70-99); Potassium 4.3 mmol/L (3.5-5.1); Sodium 140 mmol/L (135-145); eGFR 22.38
--- NOTE | 2024-07-17 09:40 | W.PN.CD ---
Today's Communication / Plan
-
Cont metop and amiodarone; HRs beginning to become more controlled
Impression / Plan
-
88 yo female with PMH of advanced dementia, hemorrhagic stroke, cerebral amlyoid angiopathy, HTN, hyperlipidemia is admitted with weakness/confusion. We are consulted for A fib with RVR.
# A fib with RVR
-paroxysmal
-Cont Metoprolol 50mg BID; she had conversion pauses noted this hospitalization. Uptitrate cautiously. HRs likely to become more controlled as amiodarone begins to take effect
-Continue PO Amiodarone 400mg BID.
-This is not an ideal choice given risk of chemical cardioversion with no anticoagulation, but HRs remain elevated and she has become hypotensive with higher doses of BB.
-requires monitoring on tele
-CHADS2-VASC = 6. OAC discussed in detail with neurology and family. Patient is high risk for bleeding with hemorrhagic stroke, cerebral amyloid angiopathy; and not an acceptable candidate for OAC.
# NSVT
-conservative/med mgmt only
-continue metoprolol
-amiodarone as above
# HTN
-continue metoprolol and lisinopril
# Hyperlipidemia
-cont atorvastatin
Subjective: Pleasantly confused aaox1 person only, no new complaints
Physical Exam
Vital Signs/Labs
Vital Signs
Temp Pulse Resp BP Pulse Ox
97.2 F 128 22 143/84 95
07/17/24 07:00 07/17/24 07:00 07/17/24 07:00 07/17/24 07:00 07/17/24 07:00
07/16/24 07/17/24 07/18/24
06:59 06:59 06:59
Actual Weight 218 lb 8 oz 220 lb 1 oz
07/17/24 06:35
07/17/24 06:35
Magnesium Cancelled 07/13/24 06:46
Triglycerides 151 mg/dl (10-149) H 07/13/24 06:17
LDL Cholesterol, Calc 93 mg/dl 07/13/24 06:17
VLDL Cholesterol, Calc 30 mg/dl (0-30) 07/13/24 06:17
HDL Cholesterol 42 mg/dl 07/13/24 06:17
07/13/24 07/13/24
06:17 07:09
Kyt-Y-Ikhhfbqenta Pept 1090 Cancelled
Physical Exam
Constitutional: No acute distress and Confusion
EENT: Anicteric
Cardiovascular: Rhythm/rate is irregular
Respiratory: Respiratory effort normal and Lungs clear to auscul.
GI: Soft
Neuro/Psych: Other (oriented to person )
Data Reviewed
-
Date of Service: July 17, 2024
EKG: Tracing Personally Visualized and interpreted (af)
Echo: Report Reviewed by me
Labs: Labs Reviewed by me
[2024-07-17 11:38] LABS: Glucose - Point of Care 222 mg/dl (70-99)
[2024-07-17] MEDS: NOVOLOG FLEXPEN-LOW RESISTANCE 2 UNITS SC (11:40)
--- NOTE | 2024-07-17 16:17 | W.PN.HOSP.TC ---
Today's Communication/Plan
-
Assessment / Plan
Assessment / Plan
General: No Apparent Distress, Comfortable
HEENT: NormoCephalic, Moist mucous membranes, Atraumatic
Respiratory: Clear and Non Labored Respirations
Cardiac: Irregular rhythm, heart rate 100
GI: Soft, Non Tender, Non Distended and Normal Bowel Sounds
Musculoskeletal: No Edema, no deformity
: NO Sawyer
Neuro: Awake and alert, Nonfocal/grossly intact, confused
Psych: Calm and cooperative, confused
A/P: Patient is an 88y F with PMH significant for HTN, DM-II and dementia who presents to ED for evaluation of confusion and ataxia.
Ataxia
Confusion
Weakness
-History of dementia, previously thought to be parkinsonian considering tremor though family report at most recent neurology follow-up they were told not due to Parkinson's
- MRI of the brain shows no evidence of acute stroke but does show chronic right frontal hemorrhagic infarct and possible amyloid angiopathy
-Afebrile and no white count on admission. UA negative. Chest x-ray without evidence of infection.
-New atrial fibrillation paroxysmal noted and unclear if the weakness is from tachycardia, tachycardia now resolved.
-PT recommending SNF
-Evaluated by neurology recommend continuing low-dose aspirin and statin, discontinuing donepezil as it is unlikely to be providing any benefit
-Will need outpatient neuropsychiatric evaluation which is planned for sometime this July
New onset of paroxysmal fibrillation
-Rate continues to be better controlled but still intermittently tachycardic
-Has been transitioned to oral amiodarone load with 40 mg twice daily for now
-Continue metoprolol tartrate 50 mg p.o. twice daily, may need to increase dose of still not rate controlled
-Echocardiogram unremarkable
-Avoid anticoagulation considering evidence of cerebral amyloid angiopathy and prior hemorrhagic infarct
ANDREAS:
-Suspect prerenal
-Hold Lasix and lisinopril for now
-Gave 500 cc of NS
-Repeat labs this morning were slightly worse now with a creatinine of 2.1
-Will give another 500 cc of NS and continue holding Lasix and lisinopril
-Check bladder scan
Benign Hypertension
- Decreased lisinopril from 30 mg to 10 mg daily to avoid hypotension, now holding lisinopril due to ANDREAS
-Restart lisinopril when renal function normalizes, adjust regimen as needed
DM-II
- Not on any listed DM medications.
- Mildly elevated hemoglobin A1c of 6.3%
-Would liberalize blood glucose goals considering age and comorbidities
-Low intensity sliding scale insulin for now
OAB
- Hold Myrbetriq given uncontrolled hypertension.
-Gets bladder Botox injections every 4 months which family reports seems to help even her mental status
Senile Dementia
Anxiety / Depression
- Continue current medications.
-Planned outpatient neurology follow-up in July for neuropsychiatric testing
DVT Prophylaxis: SCDs
Code Status: Full
Discussed with family
Anticipated Discharge: 24 - 48 hours
Subjective/Interval History
-
Date of Service: July 17, 2024
Patient was seen and examined at bedside this morning. Comfortable, no acute distress.
Objective Data
-
Labs:
Laboratory Results
07/17/24
06:35
WBC 10.7
Hgb 10.6 L
Hct 32.6 L
Plt Count 198
Sodium 140
Potassium 4.3
Chloride 104
Carbon Dioxide 27
BUN 64 H
Creatinine 2.1 H
Glucose 135 H
Calcium 8.8
Vital Signs:
Vital Signs
Temp Pulse Resp BP Pulse Ox
97.5 F 65 24 120/60 98
07/17/24 15:00 07/17/24 15:00 07/17/24 15:00 07/17/24 15:00 07/17/24 15:00
I&O
07/16/24 07/17/24 07/18/24
06:59 06:59 06:59
Intake Total 460 / 460 480 / 480
Balance 460 / 460 480 / 480
Review of Systems
-
Unable to obtain full review of systems at this time due to: Dementia
History Source: Patient
All other systems: Reviewed and negative
Physical Exam
-
General: No Apparent Distress
[2024-07-17] MEDS: NSS 500 IV (16:27)
[2024-07-17 16:46] LABS: Glucose - Point of Care 145 mg/dl (70-99)
[2024-07-17] MEDS: LIPITOR 10 MG PO (17:26)
[2024-07-17 21:43] LABS: Glucose - Point of Care 173 mg/dl (70-99)
[2024-07-18] VITALS (7 sets, daily range): BP systolic 134–168; BP diastolic 57–82; PULSE 80; O2SAT 98; BMI 33.4
[2024-07-18 07:43] LABS: Glucose - Point of Care 156 mg/dl (70-99)
[2024-07-18] MEDS: NOVOLOG FLEXPEN-LOW RESISTANCE 1 UNITS SC (08:38)
[2024-07-18] MEDS: LEXAPRO 5 MG PO (08:39)
[2024-07-18] MEDS: PACERONE 400 MG PO ×2 (08:39→21:05)
[2024-07-18] MEDS: TOPROL XL 50 MG PO ×2 (08:39→21:06)
[2024-07-18] MEDS: LOW STRENGTH ASPIRIN 81 MG PO (08:39)
[2024-07-18 08:55] LABS: % Basophils 0.2 % (0-2); % Eosinophils 2.3 % (0-6); % Immature Granulocytes 0.4 % (0-0.5); % Lymphocytes 10.6 % (20.5-51.1); % Monocytes 9.8 % (1.7-9.3); % Neutrophils 76.7 % (42.2-75.2); Absolute Eosinophils 0.2 10^3/uL (0-0.7); Absolute Monocytes 0.9 10^3/uL (0.1-0.6); Absolute Neutrophils 7.3 10^3/uL (1.4-6.5); Hematocrit 29.4 % (37.0-47.0); Hemoglobin 9.8 g/dL (12.0-16.0); Mean Corp Hgb Conc. 33.3 g/dL (33.0-37.0); Mean Corpuscular Volume 96.1 fL (81.0-99.0); Mean Platelet Volume 9.9 fL (7.4-10.4); Nucleated Red Blood Cells % 0 %; Platelet Count 182 10^3/uL (130-400); Red Blood Cell Count 3.06 10^6/uL (4.20-5.40); Red Cell Dist. Width 14.2 % (11.5-14.5); White Blood Cell Count 9.5 10^3/uL (4.8-10.8)
[2024-07-18 09:37] LABS: Blood Urea Nitrogen 70 mg/dl (7-17); Calcium 8.6 mg/dl (8.4-10.2); Carbon Dioxide 26 mmol/L (22-30); Chloride 104 mmol/L (98-107); Estimated Creatinine Clearance 27 ml/min; Glucose 142 mg/dl (70-99); Potassium 4.4 mmol/L (3.5-5.1); Sodium 137 mmol/L (135-145); eGFR 28.84
--- NOTE | 2024-07-18 11:25 | W.PN.CD ---
Today's Communication / Plan
-
Cont amio and metoprolol
Amio 400 mg daily at discharge
Not an AC candidate
We will sign off and arrange follow up; pls call with questions
Impression / Plan
-
88 yo female with PMH of advanced dementia, hemorrhagic stroke, cerebral amlyoid angiopathy, HTN, hyperlipidemia is admitted with weakness/confusion. We are consulted for A fib with RVR.
# A fib with RVR now back in SR
-paroxysmal
-Cont Metoprolol 50mg BID
-Continue PO Amiodarone 400mg BID; at discharge make 400 daily
-This is not an ideal choice given risk of chemical cardioversion with no anticoagulation, but HRs remain elevated and she has become hypotensive with higher doses of BB.
-requires monitoring on tele
-CHADS2-VASC = 6. OAC discussed in detail with neurology and family. Patient is high risk for bleeding with hemorrhagic stroke, cerebral amyloid angiopathy; and not an acceptable candidate for OAC.
# NSVT
-conservative/med mgmt only
-continue metoprolol
-amiodarone as above
# HTN
-continue metoprolol
- Lisinopril on hold for worsening renal fxn; nephrology consulted
# Hyperlipidemia
-cont atorvastatin
Subjective: Pleasantly confused aaox1 person only, no new complaints
Physical Exam
Vital Signs/Labs
Vital Signs
Temp Pulse Resp BP Pulse Ox
98.2 F 65 18 154/65 96
07/18/24 07:00 07/18/24 07:00 07/18/24 07:00 07/18/24 07:00 07/18/24 07:00
07/17/24 07/18/24 07/19/24
06:59 06:59 06:59
Actual Weight 220 lb 1 oz 207 lb 2 oz
07/18/24 08:40
07/18/24 08:39
Magnesium Cancelled 07/13/24 06:46
Triglycerides 151 mg/dl (10-149) H 07/13/24 06:17
LDL Cholesterol, Calc 93 mg/dl 07/13/24 06:17
VLDL Cholesterol, Calc 30 mg/dl (0-30) 07/13/24 06:17
HDL Cholesterol 42 mg/dl 07/13/24 06:17
07/13/24 07/13/24
06:17 07:09
Sks-C-Lvpifhbwnib Pept 1090 Cancelled
Physical Exam
Constitutional: No acute distress
EENT: Anicteric
Cardiovascular: Rhythm & rate is regular
Respiratory: Respiratory effort normal and Lungs clear to auscul.
GI: Soft
Neuro/Psych: AO x 3
Data Reviewed
-
Date of Service: July 18, 2024
EKG: Tracing Personally Visualized and interpreted (sr)
Echo: Report Reviewed by me
Labs: Labs Reviewed by me
[2024-07-18 12:37] LABS: Glucose - Point of Care 128 mg/dl (70-99)
[2024-07-18] MEDS: NOVOLOG FLEXPEN-LOW RESISTANCE SC ×2 (12:42→16:50)
--- NOTE | 2024-07-18 14:41 | W.PN.HOSP.TC ---
Today's Communication/Plan
-
Assessment / Plan
Assessment / Plan
General: No Apparent Distress, Comfortable
HEENT: NormoCephalic, Moist mucous membranes, Atraumatic
Respiratory: Clear and Non Labored Respirations
Cardiac: Normal sinus rhythm, heart rate 70
GI: Soft, Non Tender, Non Distended and Normal Bowel Sounds
Musculoskeletal: No Edema, no deformity
: NO Sawyer
Neuro: Awake and alert, Nonfocal/grossly intact, confused
Psych: Calm and cooperative, confused
A/P: Patient is an 88y F with PMH significant for HTN, DM-II and dementia who presents to ED for evaluation of confusion and ataxia.
Ataxia
Confusion
Weakness
-History of dementia, previously thought to be parkinsonian considering tremor though family report at most recent neurology follow-up they were told not due to Parkinson's
- MRI of the brain shows no evidence of acute stroke but does show chronic right frontal hemorrhagic infarct and possible amyloid angiopathy
-Afebrile and no white count on admission. UA negative. Chest x-ray without evidence of infection.
-New atrial fibrillation noted and unclear if the weakness is from tachycardia, tachycardia now resolved.
-PT recommending SNF
-Evaluated by neurology recommend continuing low-dose aspirin and statin, discontinuing donepezil as it is unlikely to be providing any benefit
-Will need outpatient neuropsychiatric evaluation which is planned for sometime this July
New onset of paroxysmal atrial fibrillation
-Now rate controlled and in normal sinus rhythm
-Has been transitioned to oral amiodarone load with 400 mg twice daily for now, changed to amiodarone 40 mg daily at time of discharge
-Continue metoprolol tartrate 50 mg p.o. twice daily
-Echocardiogram unremarkable
-Avoid anticoagulation considering evidence of cerebral amyloid angiopathy and prior hemorrhagic infarct
ANDREAS:
-Suspect prerenal
-Hold Lasix and lisinopril for now
-Gave 500 cc of NS
-Repeat labs this morning were slightly improved with a creatinine of 1.7
-Monitoring bladder scans and she has not been retaining urine
Benign Hypertension
- Decreased lisinopril from 30 mg to 10 mg daily to avoid hypotension, now holding lisinopril due to ANDREAS
-Restart lisinopril when renal function normalizes, or may need to use alternative agent
DM-II
- Not on any listed DM medications.
- Mildly elevated hemoglobin A1c of 6.3%
-Would liberalize blood glucose goals considering age and comorbidities
-Low intensity sliding scale insulin for now
OAB
- Hold Myrbetriq given uncontrolled hypertension.
-Gets bladder Botox injections every 4 months which family reports seems to help even her mental status
Senile Dementia
Anxiety / Depression
- Continue current medications.
-Planned outpatient neurology follow-up in July for neuropsychiatric testing
DVT Prophylaxis: SCDs
Code Status: Full
Discussed with family
Anticipated Discharge: Within 24 hours
Subjective/Interval History
-
Date of Service: July 18, 2024
Patient was seen and examined at bedside this morning. Comfortable no complaints. Renal function is slightly improved today. Heart rate much better controlled.
Objective Data
-
Labs:
Laboratory Results
07/18/24 07/18/24
08:39 08:40
WBC 9.5
Hgb 9.8 L
Hct 29.4 L
Plt Count 182
Sodium 137
Potassium 4.4
Chloride 104
Carbon Dioxide 26
BUN 70 H
Creatinine 1.7 H
Glucose 142 H
Calcium 8.6
Vital Signs:
Vital Signs
Temp Pulse Resp BP Pulse Ox
97.8 F 59 18 134/62 97
07/18/24 11:00 07/18/24 11:00 07/18/24 11:00 07/18/24 11:00 07/18/24 11:00
I&O
07/17/24 07/18/24 07/19/24
06:59 06:59 06:59
Intake Total 480 / 480
Balance 480 / 480
Review of Systems
-
History Source: Patient
All other systems: Reviewed and negative
Physical Exam
-
General: No Apparent Distress
--- NOTE | 2024-07-18 15:25 | CM ---
CM reviewed chart, patient and daughter seen bedside, discussed additional referrals placed for SNF- currently no beds at [facility] or [place], additional referrals placed to [facility] and [place]. Daughter reports she does not want
patient to discharge to [facility]. Patient will require insurance auth. CM will continue to follow for all discharge planning needs.
Plan; SNF pending accepting facility, will require auth.
[2024-07-18] MEDS: MIRALAX 17 GRAMS PO (16:11)
[2024-07-18 16:41] LABS: Glucose - Point of Care 117 mg/dl (70-99)
[2024-07-18] MEDS: LIPITOR 10 MG PO (17:45)
[2024-07-18] MEDS: SENOKOT-S 1 TABLET PO (21:06)
[2024-07-18 22:00] LABS: Glucose - Point of Care 156 mg/dl (70-99)
[2024-07-19] VITALS (7 sets, daily range): BP systolic 140–175; BP diastolic 55–73; BMI 34.7
[2024-07-19 07:34] LABS: Glucose - Point of Care 148 mg/dl (70-99)
[2024-07-19] MEDS: NOVOLOG FLEXPEN-LOW RESISTANCE SC ×2 (08:36→15:58)
[2024-07-19] MEDS: PACERONE 400 MG PO (08:40)
[2024-07-19] MEDS: MIRALAX 17 GRAMS PO (08:40)
[2024-07-19] MEDS: SENOKOT-S 1 TABLET PO ×2 (08:44→20:57)
[2024-07-19] MEDS: TOPROL XL 50 MG PO ×2 (08:44→20:57)
[2024-07-19] MEDS: LOW STRENGTH ASPIRIN 81 MG PO (08:45)
[2024-07-19] MEDS: LEXAPRO 5 MG PO (08:46)
[2024-07-19 08:59] LABS: Blood Urea Nitrogen 60 mg/dl (7-17); Calcium 8.7 mg/dl (8.4-10.2); Carbon Dioxide 26 mmol/L (22-30); Chloride 104 mmol/L (98-107); Estimated Creatinine Clearance 31 ml/min; Glucose 142 mg/dl (70-99); Potassium 4.7 mmol/L (3.5-5.1); Sodium 138 mmol/L (135-145); eGFR 33.52
[2024-07-19 11:14] LABS: Glucose - Point of Care 181 mg/dl (70-99)
[2024-07-19] MEDS: NOVOLOG FLEXPEN-LOW RESISTANCE 1 UNITS SC (12:21)
--- NOTE | 2024-07-19 14:07 | W.PN.HOSP.TC ---
Today's Communication/Plan
-
Assessment / Plan
Assessment / Plan
General: No Apparent Distress, Comfortable
HEENT: NormoCephalic, Moist mucous membranes, Atraumatic
Respiratory: Clear and Non Labored Respirations
Cardiac: Normal sinus rhythm, heart rate 60
GI: Soft, Non Tender, Non Distended and Normal Bowel Sounds
Musculoskeletal: No Edema, no deformity
: NO Sawyer
Neuro: Awake and alert, Nonfocal/grossly intact, confused
Psych: Calm and cooperative, confused
A/P: Patient is an 88y F with PMH significant for HTN, DM-II and dementia who presents to ED for evaluation of confusion and ataxia.
Ataxia
Confusion
Weakness
-History of dementia, previously thought to be parkinsonian considering tremor though family report at most recent neurology follow-up they were told not due to Parkinson's
- MRI of the brain shows no evidence of acute stroke but does show chronic right frontal hemorrhagic infarct and possible amyloid angiopathy
-Afebrile and no white count on admission. UA negative. Chest x-ray without evidence of infection.
-New atrial fibrillation noted and unclear if the weakness is from tachycardia, tachycardia now resolved.
-PT recommending SNF
-Evaluated by neurology recommend continuing low-dose aspirin and statin, discontinuing donepezil as it is unlikely to be providing any benefit
-Will need outpatient neuropsychiatric evaluation which is planned for sometime this July
-Medically stable for discharge to SNF
New onset of paroxysmal atrial fibrillation
-Now rate controlled and in normal sinus rhythm
-Has been transitioned to maintenance dose of oral amiodarone with 400 mg daily
-Continue metoprolol tartrate 50 mg p.o. twice daily
-Echocardiogram unremarkable
-Avoid anticoagulation considering evidence of cerebral amyloid angiopathy and prior hemorrhagic infarct
ANDREAS:
-Suspect prerenal
-Hold Lasix for now, have discontinued lisinopril
-Gave 500 cc of NS
-Renal function continues to improve, labs this morning showed a creatinine of 1.5
-Monitoring bladder scans and she has not been retaining urine
-Will need repeat lab work as outpatient to monitor for resolution of her ANDREAS
Benign Hypertension
- Decreased lisinopril from 30 mg to 10 mg daily to avoid hypotension, now discontinued lisinopril due to ANDREAS
-Blood pressure now recovered, slightly high, will restart antihypertensive regimen with low-dose hydralazine 25 mg twice daily, avoiding CAL or ARB's due to ANDREAS
DM-II
- Not on any listed DM medications.
- Mildly elevated hemoglobin A1c of 6.3%
-Would liberalize blood glucose goals considering age and comorbidities
-Low intensity sliding scale insulin for now
OAB
- Hold Myrbetriq given uncontrolled hypertension.
-Gets bladder Botox injections every 4 months which family reports seems to help even her mental status
Senile Dementia
Anxiety / Depression
- Continue current medications.
-Planned outpatient neurology follow-up in July for neuropsychiatric testing
DVT Prophylaxis: SCDs
Code Status: Full
Discussed with family
Anticipated Discharge: 24 - 48 hours
Subjective/Interval History
-
Date of Service: July 19, 2024
Patient was seen and examined at bedside this morning. Remains in normal sinus rhythm with controlled rate. Continues to clinically improve. No complaints this morning other than the bad taste of her medications mixed with applesauce.
Objective Data
-
Labs:
Laboratory Results
07/19/24
08:28
Sodium 138
Potassium 4.7
Chloride 104
Carbon Dioxide 26
BUN 60 H
Creatinine 1.5 H
Glucose 142 H
Calcium 8.7
Vital Signs:
Vital Signs
Temp Pulse Resp BP Pulse Ox
97.8 F 61 20 159/58 99
07/19/24 07:00 07/19/24 12:11 07/19/24 12:11 07/19/24 12:11 07/19/24 12:11
I&O
07/18/24 07/19/24 07/20/24
06:59 06:59 06:59
Intake Total 600 / 600
Balance 600 / 600
Review of Systems
-
History Source: Patient
All other systems: Reviewed and negative
Physical Exam
-
General: No Apparent Distress
[2024-07-19 15:23] LABS: Glucose - Point of Care 119 mg/dl (70-99)
[2024-07-19] MEDS: APRESOLINE 25 MG PO ×2 (17:11→20:57)
[2024-07-19] MEDS: LIPITOR 10 MG PO (17:12)
[2024-07-19 20:57] LABS: Glucose - Point of Care 136 mg/dl (70-99)
[2024-07-20 03:40] VITALS: BP 153/72
[2024-07-20 06:00] VITALS: BMI 34.7
[2024-07-20 07:00] VITALS: BP 131/75
[2024-07-20 07:25] LABS: Glucose - Point of Care 137 mg/dl (70-99)
[2024-07-20] MEDS: NOVOLOG FLEXPEN-LOW RESISTANCE SC (07:57)
[2024-07-20] MEDS: MIRALAX 17 GRAMS PO (08:21)
[2024-07-20] MEDS: PACERONE 400 MG PO ×2 (08:22→20:06)
[2024-07-20] MEDS: LOW STRENGTH ASPIRIN 81 MG PO (08:22)
[2024-07-20] MEDS: SENOKOT-S 1 TABLET PO ×2 (08:23→20:05)
[2024-07-20] MEDS: TOPROL XL 50 MG PO ×2 (08:23→20:05)
[2024-07-20] MEDS: LEXAPRO 5 MG PO (08:23)
[2024-07-20 10:03] LABS: % Basophils 0.3 % (0-2); % Eosinophils 1.9 % (0-6); % Immature Granulocytes 0.2 % (0-0.5); % Lymphocytes 9.6 % (20.5-51.1); % Monocytes 7.5 % (1.7-9.3); % Neutrophils 80.5 % (42.2-75.2); Absolute Eosinophils 0.2 10^3/uL (0-0.7); Absolute Lymphocytes 1.2 10^3/uL (1.2-3.4); Absolute Monocytes 0.9 10^3/uL (0.1-0.6); Absolute Neutrophils 9.8 10^3/uL (1.4-6.5); Hemoglobin 10.5 g/dL (12.0-16.0); Mean Corp Hgb Conc. 32.8 g/dL (33.0-37.0); Mean Corpuscular Hgb 32.4 pg (27.0-31.0); Mean Corpuscular Volume 98.8 fL (81.0-99.0); Mean Platelet Volume 10.5 fL (7.4-10.4); Nucleated Red Blood Cells % 0 %; Platelet Count 251 10^3/uL (130-400); Red Blood Cell Count 3.24 10^6/uL (4.20-5.40); Red Cell Dist. Width 13.9 % (11.5-14.5); White Blood Cell Count 12.2 10^3/uL (4.8-10.8)
[2024-07-20] MEDS: DESENEX/MITRAZOL/ZEASORB 1 APPLIC TOPICAL ×2 (10:23→20:08)
[2024-07-20 10:27] LABS: Blood Urea Nitrogen 49 mg/dl (7-17); Calcium 8.9 mg/dl (8.4-10.2); Carbon Dioxide 30 mmol/L (22-30); Chloride 104 mmol/L (98-107); Estimated Creatinine Clearance 31 ml/min; Glucose 145 mg/dl (70-99); Potassium 4.9 mmol/L (3.5-5.1); Sodium 140 mmol/L (135-145); eGFR 33.52
[2024-07-20 11:39] LABS: Glucose - Point of Care 215 mg/dl (70-99)
[2024-07-20] MEDS: NOVOLOG FLEXPEN-LOW RESISTANCE 2 UNITS SC (12:41)
[2024-07-20] MEDS: STERILE WATER FOR INJECTION 10 ML IV (12:42)
[2024-07-20] MEDS: ROCEPHIN 1000 MG IV (12:42)
[2024-07-20 15:00] VITALS: BP 152/75
[2024-07-20 15:10] LABS: Glucose - Point of Care 153 mg/dl (70-99)
--- NOTE | 2024-07-20 15:20 | W.PN.HOSP.TC ---
Today's Communication/Plan
-
Assessment / Plan
Assessment / Plan
General: No Apparent Distress, Comfortable
HEENT: NormoCephalic, Moist mucous membranes, Atraumatic
Respiratory: Clear and Non Labored Respirations
Cardiac: Irregular rhythm, heart rate 100
GI: Soft, Non Tender, Non Distended and Normal Bowel Sounds
Musculoskeletal: No Edema, no deformity
: NO Sawyer
Neuro: Awake and alert, Nonfocal/grossly intact
Psych: Calm and cooperative
A/P: Patient is an 88y F with PMH significant for HTN, DM-II and dementia who presents to ED for evaluation of confusion and ataxia.
Ataxia
Confusion
Weakness
-Resolved, patient appears close to her baseline per family
-History of dementia, previously thought to be parkinsonian considering tremor though family report at most recent neurology follow-up they were told not due to Parkinson's
- MRI of the brain shows no evidence of acute stroke but does show chronic right frontal hemorrhagic infarct and possible amyloid angiopathy
-New atrial fibrillation noted and unclear if the weakness is from tachycardia
-Evaluated by neurology recommend continuing low-dose aspirin and statin, discontinuing donepezil as it is unlikely to be providing any benefit
-Will need outpatient neuropsychiatric evaluation which is planned for sometime this July
-Possible pulmonary infection or UTI, persistent mild leukocytosis, will treat empirically with 5-day course of antibiotics, monitor cultures
-Medically stable for discharge to SNF
New onset of paroxysmal atrial fibrillation
-Had transition to daily dosing of amiodarone yesterday 07/19, however patient reverted to uncontrolled A-fib overnight
-Will return to loading dose of oral amiodarone with 400 mg daily, continue this dose through 07/27 then switch to 200 mg p.o. daily thereafter
-Continue metoprolol tartrate 50 mg p.o. twice daily
-Echocardiogram unremarkable
-Avoid anticoagulation considering evidence of cerebral amyloid angiopathy and prior hemorrhagic infarct
ANDREAS:
-Suspect prerenal
-Have discontinued lisinopril, okay to continue home low-dose Lasix q48 hours
-Renal function continues to improve, labs this morning showed a creatinine of 1.5
-Monitoring bladder scans and she has not been retaining urine
-Will need repeat lab work as outpatient to monitor for resolution of her ANDREAS
Benign Hypertension
- Decreased lisinopril from 30 mg to 10 mg daily to avoid hypotension, now discontinued lisinopril due to ANDREAS
-Blood pressure now recovered, restarted antihypertensive regimen with low-dose hydralazine 25 mg twice daily, avoiding CAL or ARB's due to ANDREAS
DM-II
- Not on any listed DM medications.
- Mildly elevated hemoglobin A1c of 6.3%
-Would liberalize blood glucose goals considering age and comorbidities
-Low intensity sliding scale insulin as needed for now
OAB
- Hold Myrbetriq given uncontrolled hypertension.
-Gets bladder Botox injections every 4 months which family reports seems to help even her mental status
Senile Dementia
Anxiety / Depression
- Continue current medications.
-Planned outpatient neurology follow-up in July for neuropsychiatric testing
DVT Prophylaxis: SCDs
Code Status: Full
Discussed with family
Anticipated Discharge: 24 - 48 hours
Subjective/Interval History
-
Date of Service: July 20, 2024
And examined at bedside this morning. Continues to clinically improve. However she did revert to A-fib with uncontrolled rate overnight noted on telemetry, but patient remained asymptomatic. Will go back to twice daily amiodarone dosing for now.
Objective Data
-
Labs:
Laboratory Results
07/20/24
08:52
WBC 12.2 H
Hgb 10.5 L
Hct 32.0 L
Plt Count 251 D
Sodium 140
Potassium 4.9
Chloride 104
Carbon Dioxide 30
BUN 49 H
Creatinine 1.5 H
Glucose 145 H
Calcium 8.9
Vital Signs:
Vital Signs
Temp Pulse Resp BP Pulse Ox
97.7 F 106 20 131/75 96
07/20/24 07:00 07/20/24 08:22 07/20/24 07:00 07/20/24 08:22 07/20/24 08:15
I&O
07/19/24 07/20/24 07/21/24
06:59 06:59 06:59
Intake Total 600 / 600 100 / 100
Balance 600 / 600 100 / 100
Review of Systems
-
History Source: Patient
All other systems: Reviewed and negative
Physical Exam
-
General: No Apparent Distress
[2024-07-20 16:20] VITALS: BP 152/75; PULSE 100; O2SAT 95
[2024-07-20 16:43] LABS: Glucose - Point of Care 156 mg/dl (70-99)
[2024-07-20] MEDS: NOVOLOG FLEXPEN-LOW RESISTANCE 1 UNITS SC (17:10)
[2024-07-20] MEDS: LIPITOR 10 MG PO (17:34)
[2024-07-20 19:48] VITALS: BP 141/70
[2024-07-20] MEDS: APRESOLINE 25 MG PO (20:05)
[2024-07-20 21:20] LABS: Glucose - Point of Care 162 mg/dl (70-99)
[2024-07-20 23:23] VITALS: BP 134/66
[2024-07-21 03:27] VITALS: BP 156/88
[2024-07-21 05:25] VITALS: BMI 35.4
[2024-07-21 07:00] VITALS: BP 156/75
[2024-07-21 07:26] LABS: Glucose - Point of Care 143 mg/dl (70-99)
[2024-07-21 08:14] LABS: % Basophils 0.3 % (0-2); % Eosinophils 1.8 % (0-6); % Immature Granulocytes 0.4 % (0-0.5); % Lymphocytes 9.6 % (20.5-51.1); % Monocytes 8.3 % (1.7-9.3); % Neutrophils 79.6 % (42.2-75.2); Absolute Eosinophils 0.2 10^3/uL (0-0.7); Absolute Immature Granulocytes 0.1 10^3/uL (0-0.05); Absolute Lymphocytes 1.2 10^3/uL (1.2-3.4); Absolute Neutrophils 9.6 10^3/uL (1.4-6.5); Hematocrit 31.5 % (37.0-47.0); Hemoglobin 10.7 g/dL (12.0-16.0); Mean Corpuscular Hgb 32.5 pg (27.0-31.0); Mean Corpuscular Volume 95.7 fL (81.0-99.0); Mean Platelet Volume 9.8 fL (7.4-10.4); Nucleated Red Blood Cells % 0 %; Platelet Count 245 10^3/uL (130-400); Red Blood Cell Count 3.29 10^6/uL (4.20-5.40); Red Cell Dist. Width 13.9 % (11.5-14.5)
[2024-07-21] MEDS: NOVOLOG FLEXPEN-LOW RESISTANCE SC (08:46)
[2024-07-21] MEDS: MIRALAX 17 GRAMS PO (08:49)
[2024-07-21] MEDS: LASIX 20 MG PO (08:50)
[2024-07-21] MEDS: APRESOLINE 25 MG PO ×2 (08:51→19:29)
[2024-07-21] MEDS: AUGMENTIN 500 MG/125 MG 1 TABLET PO (08:51)
[2024-07-21] MEDS: PACERONE 400 MG PO ×2 (08:51→19:29)
[2024-07-21 08:52] LABS: Blood Urea Nitrogen 52 mg/dl (7-17); Calcium 8.8 mg/dl (8.4-10.2); Carbon Dioxide 24 mmol/L (22-30); Chloride 104 mmol/L (98-107); Estimated Creatinine Clearance 34 ml/min; Glucose 143 mg/dl (70-99); Potassium 4.8 mmol/L (3.5-5.1); Sodium 141 mmol/L (135-145); eGFR 36.41
[2024-07-21] MEDS: TOPROL XL 50 MG PO ×2 (08:52→19:29)
[2024-07-21] MEDS: SENOKOT-S 1 TABLET PO ×2 (08:52→19:29)
[2024-07-21] MEDS: LEXAPRO 5 MG PO (08:52)
--- NOTE | 2024-07-21 09:15 | W.PN.HOSP.TC ---
Today's Communication/Plan
-
Discharge planning
Follow-up urine culture
Assessment / Plan
Assessment / Plan
General: No Apparent Distress, Comfortable
HEENT: NormoCephalic, Moist mucous membranes, Atraumatic
Respiratory: Clear and Non Labored Respirations
Cardiac: Irregular rhythm, heart rate 100
GI: Soft, Non Tender, Non Distended and Normal Bowel Sounds
Musculoskeletal: No Edema, no deformity
: NO Sawyer
Neuro: Awake and alert, Nonfocal/grossly intact
Psych: Calm and cooperative
A/P: Patient is an 88y F with PMH significant for HTN, DM-II and dementia who presents to ED for evaluation of confusion and ataxia.
Ataxia
Confusion
Weakness
-Resolved, patient appears close to her baseline per family
-History of dementia, previously thought to be parkinsonian considering tremor though family report at most recent neurology follow-up they were told not due to Parkinson's
- MRI of the brain shows no evidence of acute stroke but does show chronic right frontal hemorrhagic infarct and possible amyloid angiopathy
-New atrial fibrillation noted and unclear if the weakness is from tachycardia
-Evaluated by neurology recommend continuing low-dose aspirin and statin, discontinuing donepezil as it is unlikely to be providing any benefit
-Will need outpatient neuropsychiatric evaluation which is planned for sometime this July
-On empiric antibiotics, Augmentin, for presumed UTI, urine culture pending. If urine culture negative can discontinue further antibiotics. Clinically doubt sepsis. Clinically doubt pneumonia. Chest x-ray reviewed.
New onset of paroxysmal atrial fibrillation
-Had transition to daily dosing of amiodarone yesterday 07/19, however patient reverted to uncontrolled A-fib overnight
-Cardiology recommends switching amiodarone to 400 mg once daily on discharge.
-Continue metoprolol tartrate 50 mg p.o. twice daily
-Echocardiogram unremarkable
-Avoid anticoagulation considering evidence of cerebral amyloid angiopathy and prior hemorrhagic infarct
ANDREAS:
-Suspect prerenal
-Have discontinued lisinopril, okay to continue home low-dose Lasix q48 hours
-Renal function continues to improve, labs this morning showed a creatinine of 1.5
-Monitoring bladder scans and she has not been retaining urine
-Will need repeat lab work as outpatient to monitor for resolution of her ANDREAS
Essential hypertension
- Decreased lisinopril from 30 mg to 10 mg daily to avoid hypotension, now discontinued lisinopril due to ANDREAS
-Blood pressure now recovered, restarted antihypertensive regimen with low-dose hydralazine 25 mg twice daily, avoiding CAL or ARB's due to ANDREAS
DM2 without hyperglycemia
- Not on any listed DM medications.
- Mildly elevated hemoglobin A1c of 6.3%
-Would liberalize blood glucose goals considering age and comorbidities
-Low intensity sliding scale insulin as needed for now
OAB
- Hold Myrbetriq given uncontrolled hypertension.
-Gets bladder Botox injections every 4 months which family reports seems to help even her mental status
Senile Dementia
Anxiety / Depression
- Continue current medications.
-Planned outpatient neurology follow-up in July for neuropsychiatric testing
DVT Prophylaxis: SCDs
Code Status: Full
Dispo -stable for discharge to SNF.
Anticipated Discharge: Within 24 hours
Subjective/Interval History
-
Date of Service: July 21, 2024
Patient seen and examined. Eating breakfast, no complaints.
Objective Data
-
Labs:
Laboratory Results
07/21/24
08:02
WBC 12.0 H
Hgb 10.7 L
Hct 31.5 L
Plt Count 245
Sodium 141
Potassium 4.8
Chloride 104
Carbon Dioxide 24
BUN 52 H
Creatinine 1.4 H
Glucose 143 H
Calcium 8.8
Vital Signs:
Vital Signs
Temp Pulse Resp BP Pulse Ox
97.9 F 106 24 156/75 98
07/21/24 07:00 07/21/24 07:00 07/21/24 07:00 07/21/24 07:00 07/21/24 07:00
I&O
07/20/24 07/21/24 07/22/24
06:59 06:59 06:59
Intake Total 100 / 100 220 / 220
Balance 100 / 100 220 / 220
Review of Systems
-
History Source: Patient
All other systems: Reviewed and negative
[2024-07-21 11:00] VITALS: BP 129/80
[2024-07-21 12:04] LABS: Glucose - Point of Care 199 mg/dl (70-99)
[2024-07-21] MEDS: NOVOLOG FLEXPEN-LOW RESISTANCE 1 UNITS SC ×2 (13:01→17:43)
[2024-07-21] MEDS: DESENEX/MITRAZOL/ZEASORB 1 APPLIC TOPICAL ×2 (13:02→19:30)
--- NOTE | 2024-07-21 14:43 | W.DS.TRANS ---
DC Summary - Emergency Medical Services Coordinator
-
Discharge Instructions:
Discharge Diagnosis/Procedures Atrial fibrillation, acute kidney injury
Diet Other diet
Additional Diets Soft, bite sized food
Activity As tolerated
Driving Restrictions No driving
Bathing Restrictions None
Instructions:
Stand-Alone Forms:
Changes to Home Medications: No
Discharge Medications:
DC Medications w/original date entered in [facility]
vmusclag-tdrr-trxk 8 mg-folic 400 mcg-K 50 mcg-lutein 300 mcg tablet (Centrum Silver Women) 1 ea PO DAILY Supplement 06/06/18
escitalopram oxalate 5 mg tablet 5 mg PO DAILY Mental Health/Anxiety 03/15/20
sennosides 8.6 mg tablet (senna) 2 tab PO BID PRN constipation 03/15/20
simvastatin 20 mg tablet 20 mg PO HS High cholesterol 03/15/20
aspirin 81 mg capsule 81 mg PO DAILY Blood Clot Prevention/Tx 05/12/23
furosemide 20 mg tablet (Lasix) 20 mg PO .EVERYOTHERDAY Fluid Retention/Swelling 07/13/24
amiodarone 200 mg tablet 200 mg PO DAILY #20 tabs 07/21/24
amiodarone 200 mg tablet 400 mg (2 x 200 mg) PO BID #20 tabs 07/21/24
hydralazine 25 mg tablet 25 mg PO BID #0 tabs 07/21/24
metoprolol succinate 50 mg tablet,extended release 24 hr 50 mg PO BID #0 tabs 07/21/24
polyethylene glycol 3350 17 gram oral powder packet 17 g PO DAILY #0 ea 07/21/24
Home Medication Changes
Pending Results: No
--- NOTE | 2024-07-21 14:58 | CM ---
Addendum entered by Hui Schmid 07/21/24 16:15:
Auth approved for 5 days beginning today, 07/21, next review date is 07/25. Facility to call [phone] for review
Pending auth number is now the approved number, [id number]
Ambulance auth ref [id number]
Updated Juanita
Original Note:
Patient is stable for d/c today. Patient cont to be recommended for skilled rehab. CM followed up w/ patient's daughter/POA, Shalini, to review SNF referrals as prev referrals beds were not available and additional referrals were placed. [facility] accepted but does not have any available beds today.
CM spoke w/ Juanita/[facility] who shared patient is able to be accepted today as there is a bed available. Shalini agreeable.
CM called [phone] [phone] to initiate auth. Spoke w/ Becca.
Pending auth ref# [id number], CM will await a call back w/ auth determination. Ambulance auth requested as well
Patient will require ambulance transportation, forms on chart
IMM verbally reviewed, copy on chart
[facility]
Report: [phone]

Plan: D/c to [facility]. Ambulance transport
[2024-07-21 15:00] VITALS: BP 140/76
[2024-07-21 17:02] LABS: Glucose - Point of Care 158 mg/dl (70-99)
[2024-07-21] MEDS: LIPITOR 10 MG PO (17:44)
[2024-07-21 17:49] VITALS: BMI 35.4
[2024-07-21 19:38] VITALS: BP 132/68
[2024-07-21 20:51] LABS: Glucose - Point of Care 163 mg/dl (70-99)
--- NOTE | 2024-07-21 21:16 | PTCARENOTE ---
Pt d/c'd at this time to [facility].
== END 2024-07-21 21:26 | DRG 309 ==
LOC: 4 WEST ACU 13:00
PROVIDERS: Internal Medicine; Nurse Practitioner Family; ADMITTING PHYSICIAN Hospitalist; ATTENDING PHYSICIAN Hospitalist; CONSULT PHYSICIAN Internal Medicine; CONSULT PHYSICIAN Psychiatry & Neurology Neurology; EMERGENCY PHYSICIAN Emergency Medicine; FAMILY PHYSICIAN Internal Medicine
DX: I48.0 Paroxysmal atrial fibrillation (principal); N17.9 Acute kidney failure, unspecified; I10 Essential (primary) hypertension; E11.9 Type 2 diabetes mellitus without complications; R26.9 Unspecified abnormalities of gait and mobility; F01.50 Vascular dementia, unspecified severity, without behavioral disturbance, psychotic disturbance, mood disturbance, and anxiety; G47.33 Obstructive sleep apnea (adult) (pediatric); F03.90 Unspecified dementia, unspecified severity, without behavioral disturbance, psychotic disturbance, mood disturbance, and anxiety; E66.9 Obesity, unspecified; Z68.35 Body mass index [BMI] 35.0-35.9, adult
CPT/HCPCS: 51701; 70450; 70551; 71045; 80048; 80053; 80061; 81003; 81015; 82962; 83036; 83735; 83880; 84443; 85025; 85027; 87086; 87502; 87811; 92526; 92610; 93005; 93306; 96374; 97110; 97116; 97163; 97167; 97530; 97535; 99285

== ENCOUNTER → 2024-07-24 10:04 | Outpatient (REF) | payer OTHER, SELFPAY ==
[2024-07-24 13:05] LABS: Hematocrit 32.3 % (37.0-47.0); Hemoglobin 9.9 g/dL (12.0-16.0); Mean Corp Hgb Conc. 30.7 g/dL (33.0-37.0); Mean Corpuscular Hgb 31.5 pg (27.0-31.0); Mean Corpuscular Volume 102.9 fL (81.0-99.0); Mean Platelet Volume 10.1 fL (7.4-10.4); Platelet Count 298 10^3/uL (130-400); Red Blood Cell Count 3.14 10^6/uL (4.20-5.40); Red Cell Dist. Width 13.9 % (11.5-14.5); White Blood Cell Count 13.1 10^3/uL (4.8-10.8)
[2024-07-24 13:30] LABS: ALT (SGPT) 49 U/L (0-35); AST (SGOT) 28 U/L (14-36); Albumin 3.1 g/dl (3.5-5.0); Alkaline Phosphatase 95 U/L (38-126); Blood Urea Nitrogen 46 mg/dl (7-17); Calcium 8.8 mg/dl (8.4-10.2); Carbon Dioxide 26 mmol/L (22-30); Chloride 102 mmol/L (98-107); Glucose 138 mg/dl (70-99); Magnesium 2.6 mg/dl (1.6-2.3); Potassium 4.7 mmol/L (3.5-5.1); Sodium 138 mmol/L (135-145); Total Bilirubin 0.7 mg/dl (0.2-1.3); Total Protein 5.7 g/dl (6.3-8.2); eGFR 31.02
== END ==
LOC: OLABWHC 10:04
PROVIDERS: ATTENDING PHYSICIAN Family Medicine
DX: I10 Essential (primary) hypertension (principal); D72.829 Elevated white blood cell count, unspecified; E11.9 Type 2 diabetes mellitus without complications; N17.9 Acute kidney failure, unspecified
CPT/HCPCS: 36415; 80053; 83735; 85027

== ENCOUNTER 2024-07-26 23:24 | Inpatient (IN) | payer OTHER, SELFPAY ==
[2024-07-26 20:07] VITALS: BP 162/57; BMI 37.6
[2024-07-26 20:17] VITALS: BP 162/57
[2024-07-26 20:19] VITALS: PULSE 3; PULSE 49
[2024-07-26 20:21] LABS: % Basophils 0.2 % (0-2); % Eosinophils 1.5 % (0-6); % Immature Granulocytes 0.6 % (0-0.5); % Lymphocytes 5.8 % (20.5-51.1); % Monocytes 7.5 % (1.7-9.3); % Neutrophils 84.4 % (42.2-75.2); Absolute Eosinophils 0.3 10^3/uL (0-0.7); Absolute Immature Granulocytes 0.1 10^3/uL (0-0.05); Absolute Lymphocytes 1.1 10^3/uL (1.2-3.4); Absolute Monocytes 1.4 10^3/uL (0.1-0.6); Absolute Neutrophils 15.8 10^3/uL (1.4-6.5); Hematocrit 30.9 % (37.0-47.0); Hemoglobin 10.1 g/dL (12.0-16.0); Mean Corp Hgb Conc. 32.7 g/dL (33.0-37.0); Mean Corpuscular Hgb 32.1 pg (27.0-31.0); Mean Corpuscular Volume 98.1 fL (81.0-99.0); Mean Platelet Volume 9.6 fL (7.4-10.4); Nucleated Red Blood Cells % 0 %; Platelet Count 373 10^3/uL (130-400); Red Blood Cell Count 3.15 10^6/uL (4.20-5.40); Red Cell Dist. Width 13.8 % (11.5-14.5); White Blood Cell Count 18.7 10^3/uL (4.8-10.8)
[2024-07-26 20:32] LABS: ALT (SGPT) 48 U/L (0-35); AST (SGOT) 30 U/L (14-36); Albumin 3.2 g/dl (3.5-5.0); Alkaline Phosphatase 102 U/L (38-126); Blood Urea Nitrogen 56 mg/dl (7-17); Carbon Dioxide 26 mmol/L (22-30); Chloride 102 mmol/L (98-107); Estimated Creatinine Clearance 22 ml/min; Glucose 181 mg/dl (70-99); Potassium 5.3 mmol/L (3.5-5.1); Sodium 136 mmol/L (135-145); Total Bilirubin 0.5 mg/dl (0.2-1.3); Total Protein 6.2 g/dl (6.3-8.2); eGFR 22.38
[2024-07-26 20:35] LABS: COVID-19 Antigen Negative (Negative)
--- NOTE | 2024-07-26 20:35 | EDRN ---
Patient's Heart rate has been consistently low, Dr. Khalil is aware, other vital signs are stable, patient resting comfortably at this time.
[2024-07-26 20:44] LABS: NT-proBNP 4250 pg/ml; Troponin I < 0.012 ng/ml
--- NOTE | 2024-07-26 20:49 | ED.GENMED ---
History of Present Illness
General
Chief Complaint: Breathing Problem
Source: records and family
Exam Limitations: clinical condition
Time Seen by Provider: 07/26/24 20:05
History of Present Illness
History of Present Illness:
Increase shortness of breath over the last 6 to 8 hours. Patient has been on 2 L since being discharged from the hospital. He is currently being treated for pneumonia. Denies chest pain.
Past History
Past History
ED Past Medical History: Cancer (Endometrial 2017), CVA (Chronic right frontal lobe), HTN, Hypercholesterolemia, Psychiatric (Major depression), Other (Chronic cough, dementia, obstructive sleep apnea, osteopenia) and Other (Urinary incontinence,
osteoarthritis, constipation)
ED Past Surgical History: Gynecological (Total hysterectomy), Orthopedic (Left total hip replacement) and Other (Right breast lumpectomy, melanoma excision left leg)
Social History
Tobacco: Non-smoker
Alcohol: None
Drug: None
Personal:
Living: with family
Employment: Retired
Family History
Family History: Other (Reviewed and noncontributory)
Review of Systems
Review of Systems
All Other Systems: Not applicable
Constitutional: Denies fever
Cardiac: Reports no symptoms
Phy Exam
Physical Exam
Physical Exam:
GENERAL: Alert and oriented in no apparent distress
EYE: Orbits normal.
NECK: Supple, no significant adenopathy.
ENT: Pharynx without erythema
CARDIAC: Bradycardic and regular
LUNGS: Moderate tachypnea and moderate respiratory distress. 2 L nasal cannula with a pulse ox of 89%. Decreased breath sounds diffusely with some end expiratory wheezing and rales in the bases
ABDOMEN: Soft, without focal tenderness or distention
NEUROLOGICAL: Alert and oriented , grossly non-focal
SKIN: Warm and dry, no rash or lesion, no discoloration, skin intact.
MUSCULOSKELETAL: No edema,no deformity.Good color
PSYCH: Normal and appropriate interaction.
Scores
Heart Failure Risk
Heart Failure Risk Score: Yes
History of Stroke or TIA: No
History of intubation for respiratory distress: No
Heart rate on ED arrival >/= 110: No
SaO2 <90% on arrival on room air: No
HR >/=110 during 3min walk test (or too ill to perform test): Yes
ECG has acute ischemic changes: Yes
Urea >/=12mmol/L (BUN 33.6mg/dL): Yes
Serum CO2>/=35mmol/L: No
Troponin I or T elevated to NC Level (0.4mg/dL): No
NT-proBNP >/=5,000ng/L (5,000pg/ml): No
HF Risk Score: 5
Admission Status: VERY HIGH RISK 39.8% Consider admission to hospital
Course
Orders/Labs/Results
Orders:
Orders
07/26/24 20:04
Electrocardiogram (*1) Urgent
Reason for Study: Other
Other Reason for Exam: Respiratory Distress
Cardiac Monitoring- Treatment ONCE
EKG- Treatment ONCE
IV Insert/Care/Rem.- Treatment PRN
CR Chest Portable - 1 View Urgent
Comment:
Reason For Exam: respiratory distress
Reason Study Needs to be Portable: Patient Unstable
O2 Therapy [RESP] Urgent
Titrate/Wean O2 to maintain O2 sat greater than (%): 93
Special Instructions: TO MAINTAIN CONTINUOUS O2 SATS >/= 93%
Pulse Ox/cont/shift [RESP] Urgent
Quantity: 1
Special Instructions: continuous pulse ox
07/26/24 20:11
Bipap [RESP] Urgent
Patient to use own unit?: No
Inspiratory Pressure (cm H2O): 10
Expiratory Pressure (cm H2O): 5
07/26/24 20:12
COVID-19 Antigen Urgent
Source: Nasal Swab
Complete Blood Count/With Diff Urgent
Comprehensive Metabolic Panel Urgent
NT-proBNP Urgent
Troponin I Urgent
Influenza A+B Rapid Molecular Urgent
YAYA Source: Nasal Swab
Specimen Description:
07/26/24 22:03
Furosemide [Lasix] 40 mg IV NOW STA
07/26/24 23:24
Admit/Transfer Patient As Directed
Co-Sign Provider:
Level of Care: Inpatient admission
Assign to:: IMU- Intermediate Care
Physician / Group: Tunde/Hospitalist
Diagnosis: Acute hypoxic respiratory failure on BIPAP
Reason for Hospitalization: Acute hypoxic respiratory failure on BIPAP
Expected length of stay greater than two midnights?: Yes
ELOS- Estimated Length of Stay in days: 3
I certify the patient meets the requirements for IP care: Yes
07/26/24 23:25
PRN Pain Medication Management As Directed
May give lesser potent ordered pain med per pt: Yes
preference::
Protocol:: Medication orders for pain may be administered in a
manner that supports deferring to patient preference
when the pt is:
- Requesting an ordered lesser potent pain medication.
Least to most potent pain medications are defined
as: acetaminophen < NSAID < tramadol < opioids
(morphine, oxycodone, hydromorphone).
- Requesting a lesser dose of the same medication IF
ORDERED.
- Requesting a less intrusive route of administration
if both routes are prescribed by the provider (PO <
IV).
07/26/24 23:28
Code Status As Directed
Resuscitation Status: Do not resuscitate
Reached after discussion with pt or family/Healthcare POA: Yes
07/26/24 23:29
DNR Bracelet Application ONCE
07/27/24 00:20
Echo 2D MMode Color/Doppler Routine
Reason for Study: heart failure
CARDIOLOGY CONSULT Routine
Consulting Provider: Anisa George
Was physician already notified: Yes
Reason for consult: possible new onset CHF
Consult Notification Routine
Specialty to Notify: Cardiology
Date consulting provider notified: 07/27/24
Time consulting provider notified: 07:04
Notified:: Provider
HF DIETARY CONSULT Routine
HF EDUCATOR CONSULT Routine
Comment:
Activity As Directed
Activity Level: With Assistance
Intake/ Output As Directed
Frequency: Per unit guidelines
Patient Education As Directed
Type: CHF folder
Comment: give on admission. Document in Interdisciplinary Education record
Sleep Apnea Assessment by RN As Directed
Comment:
Physician Instructions:
Vital Signs As Directed
Frequency: Other
Additional Instructions:: Q12 or per unit guidelines if more frequent.
Weight As Directed
Frequency: Daily
Type of Scale: Standing Scale
Comment: Daily morning weight. If unable to stand, use balanced bed scale.
Weight As Directed
Frequency: Once
Type of Scale: Standing Scale
Comment: Upon Admission. If unable to stand, use balanced bed scale.
Bipap [RESP] Routine
Patient to use own unit?: No
Inspiratory Pressure (cm H2O): 10
Expiratory Pressure (cm H2O): 5
Pulse Ox/cont/shift [RESP] Routine
Quantity: 1
Special Instructions: Daily pulse oximetry at rest. If greater than 92% at rest also obtain pulse oximetry
while ambulating as tolerated.
DX Deep Vein Thrombosis Video Routine
07/27/24 01:37
Acetaminophen [Tylenol] 650 mg PO Q6H PRN
07/27/24 03:39
Comprehensive Metabolic Panel IN AM
Magnesium IN AM
07/27/24 03:40
Complete Blood Count/No Diff IN AM
TSH Reflex To Free T4 IN AM
07/27/24 08:00
Aspirin Chewable [Low Strength Aspirin] 81 mg PO DAILY
Escitalopram Oxalate [Lexapro] 5 mg PO DAILY
Furosemide [Lasix] 40 mg IV DAILY
Heparin 5,000 units SC Q12
HydrALAZINE [Apresoline] 25 mg PO BID
Polyethylene Glycol Powder [Miralax] 17 grams PO DAILY
amino acids-protein hydrolys [Liquacel] 30 ml PO DAILY
07/27/24 Dinner
Cholesterol Lowering
At Your Request: Limited Participation
Cholesterol Lowering: Sodium, 2 Gram
07/27/24 22:00
Atorvastatin [Lipitor] 10 mg PO HS
Abnormal Lab Results
07/26/24
20:12
WBC 18.7 H 10^3/uL
(4.8-10.8)
RBC 3.15 L 10^6/uL
(4.20-5.40)
Hgb 10.1 L g/dL
(12.0-16.0)
Hct 30.9 L %
(37.0-47.0)
MCH 32.1 H pg
(27.0-31.0)
MCHC 32.7 L g/dL
(33.0-37.0)
Abs Immat Gran (auto) 0.1 H 10^3/uL
(0-0.05)
Absolute Neuts (auto) 15.8 H 10^3/uL
(1.4-6.5)
Absolute Lymphs (auto) 1.1 L 10^3/uL
(1.2-3.4)
Absolute Monos (auto) 1.4 H 10^3/uL
(0.1-0.6)
Immature Gran % 0.6 H %
(0-0.5)
Neutrophils % 84.4 H %
(42.2-75.2)
Lymphocytes % 5.8 L %
(20.5-51.1)
Potassium 5.3 H mmol/L
(3.5-5.1)
BUN 56 H mg/dl
(7-17)
Creatinine 2.1 H mg/dL
(0.6-1.0)
Glucose 181 H mg/dl
(70-99)
ALT 48 H U/L
(0-35)
Total Protein 6.2 L g/dl
(6.3-8.2)
Albumin 3.2 L g/dl
(3.5-5.0)
07/26/24 20:12
07/26/24 20:12
Vital Signs
Initial and Last Documented VS:
Initial Vital Signs
Resp Pulse Ox
22 91
07/26/24 20:06 07/26/24 20:06
Last Documented Vital Signs
Temp Pulse Resp BP Pulse Ox
97.8 F 51 14 148/72 97
07/27/24 15:10 07/27/24 15:00 07/27/24 15:00 07/27/24 14:00 07/27/24 15:00
MDM/Problems Addressed
Differential Diagnosis Includes:
Patient in respiratory distress. Respiratory versus CHF. Bradycardic. Likely from metoprolol and amiodarone. May have a component of CHF. Appears much more comfortable on BiPAP
*Pulse Oximetry
Patient hypoxic: yes
*EKG
Interpreted by ED Provider?: Yes
Interpretation: abnormal
Comparison EKG: changes noted
Heart Rate: 44
Rate: bradycardiac
Rhythm: sinus
Pinnacle: normal axis
Interval: normal interval
QRS Pattern: left bundle branch block
Ischemia: non-specific ST changes
*Brake Specialist Interpretation
Rate: bradycardiac
Interpretation: normal
Heart Rate: 42
Rhythm: sinus
*Critical Care Note
Total Time (30-74mins, 75-104mins- exclusive of procedures): 40
Data Reviewed
Review of Other/Old Records Reveals: Labs, Records, Radiology Studies, Testing and Discharge Summary
ED Attending Note
-
Portions of this chart may have been created with voice recognition software.� Occasional wrong word or��sound alike� substitutions may have occurred due to the inherent limitations of voice recognition software.
Discharge Plan
Departure
Patient Disposition: Admit
Date of Disposition: 07/26/24
Time of Disposition: 20:52
Presentation/result/management discussed w/ accepting MD/DO: Hospitalist
Discharge Problem:
Respiratory distress, Sinus bradycardia, Renal insufficiency progressed, Possible pneumonia
Interventions
Interventions:
*Risk Screen - Suicide Last Done: 07/27/24 00:36
*General Assessment Last Done: 07/26/24 20:07
*Neglect/Abuse Screening Last Done: 07/26/24 20:07
*ED- Fall Risk Assessment Last Done: 07/26/24 20:07
*ED COVID-19 Vaccine History Last Done: 07/27/24 00:36
*Nursing Disposition Last Done: 07/27/24 00:36
ED- Cardiac Assessment Last Done: 07/26/24 20:27
ED- Pulmonary Assessment Last Done: 07/26/24 20:27
Discharge Date and Time
Discharge Date/Time: 07/27/24 00:37
[2024-07-26 21:00] VITALS: BP 126/49
--- NOTE | 2024-07-26 21:48 | HPS.HSE ---
Family Physician
-
Family Physician: Adryan Freeman MD
Chief Complaint
-
SOB
History of Present Illness
The patient is an 88-year-old woman with past medical history significant for recent hospital discharge on July 22 from here secondary to altered mental status, new onset of atrial fibrillation and acute kidney injury, for which cardiology was
consulted and she was initiated on amiodarone and metoprolol and they discussed that she was not an acceptable candidate for anticoagulation given her high bleeding risk as well as cerebral amyloid angiopathy, evaluated by neurology at the time
recommended to continue aspirin and atorvastatin and discontinued donepezil, and she was discharged on Lasix 20 mg tablets every other day as well, who presents to the emergency department today in respiratory distress. She has had increased
dyspnea over the past 6 to 8 hours prior to arrival. Of note she has been on 2 L oxygen since discharge from the hospital. Initially the ED provider thought that she had been treated for pneumonia based on discussion with intermediate via EMS
however the patient is not being treated for pneumonia at this time. She was taking nitrofurantoin for a prebladder Botox. On arrival to the emergency department she was hypoxic with a oxygen saturation of 86, she was initiated on BiPAP. Chest
x-ray is showing right sided pleural effusion with possible increased vascularity. She is being admitted for possible new onset CHF. Of note she was also quite bradycardic in the emergency department with her heart rate being in the 30s to 40s.
She denies chest pain, no palpitations, no lightheadedness, no dizziness, no nausea vomiting diarrhea nor abdominal complaints, no dysuria. No fevers.
Medical History
Past Medical History
Past Medical History: Reports Cancer (Endometrial cancer), HTN, Hypercholesterolemia, Psychiatric (chronic cough, dementia, obstructive sleep apnea, osteopenia,urinary incontinence, osteoarthritis, constipation) and Other
Additional Past Medical History:
Hypertension
DM-II
Prior CVA (diagnosed by imaging - asymptomatic)
Anxiety / Depression
Melanoma
Endometrial Cancer
Obesity
Dementia
Past Surgical History: Reports Orthopedic and Other
Additional Past Surgical History:
Right Breast Biopsy
Tubal Ligation
D&C
Robotic Hysterectomy / BSO
Left BETTINA
Melanoma Excision
Social History
Tobacco: Non-smoker
Alcohol: None
Drug: None
Personal:
Living: With Family
Family History
Family History: Other (Mother: CVA Daughter: CVA)
Allergies / Home Medications
Allergies reflects when Allergies were last updated in [facility].
Home Medications with original date entered in [facility]
Allergy/Medication List:
Allergies
Allergy/AdvReac Type Severity Reaction Status Date / Time
Calcium Channel Blocking Allergy Shortness Verified 07/12/24 20:14
Agent Dilt of breath,
weakness,
tired
verapamil Allergy Shortness Verified 07/12/24 20:14
of breath,
weakness,
tired
Home Medications
iniklwfv-vcjg-lenj 8 mg-folic 400 mcg-K 50 mcg-lutein 300 mcg tablet (Centrum Silver Women) 1 ea PO DAILY Supplement 06/06/18
escitalopram oxalate 5 mg tablet 5 mg PO DAILY Mental Health/Anxiety 03/15/20
sennosides 8.6 mg tablet (senna) 2 tab PO BID PRN constipation 03/15/20
simvastatin 20 mg tablet 20 mg PO HS High cholesterol 03/15/20
aspirin 81 mg capsule 81 mg PO DAILY Blood Clot Prevention/Tx 05/12/23
furosemide 20 mg tablet (Lasix) 20 mg PO .EVERYOTHERDAY Fluid Retention/Swelling 07/13/24
amiodarone 200 mg tablet 200 mg PO DAILY #20 tabs 07/21/24
amiodarone 200 mg tablet 400 mg (2 x 200 mg) PO BID #20 tabs 07/21/24
hydralazine 25 mg tablet 25 mg PO BID #0 tabs 07/21/24
metoprolol succinate 50 mg tablet,extended release 24 hr 50 mg PO BID #0 tabs 07/21/24
polyethylene glycol 3350 17 gram oral powder packet 17 g PO DAILY #0 ea 07/21/24
acetaminophen 650 mg tablet 650 mg PO Q6H PRN temp 07/26/24
amino acids-protein hydrolysate 16 gram-100 kcal/30 mL liquid packet (Liquacel) 30 ml PO DAILY 07/26/24
atorvastatin 10 mg tablet 10 mg PO HS 07/26/24
magnesium hydroxide 400 mg/5 mL oral suspension (Milk of Magnesia) 30 ml PO HS PRN constipation 07/26/24
nitrofurantoin macrocrystal 100 mg capsule 100 mg PO BID 07/26/24
Review of Systems
-
A 12 point ROS was completed and negative except as noted: Yes
Physical Exam
Vital Signs
Vital Signs
Temp Pulse Resp BP Pulse Ox
98.3 F 46 15 162/57 94
07/26/24 20:07 07/26/24 20:17 07/26/24 20:17 07/26/24 20:17 07/26/24 20:27
Physical Exam
General: Appears Chronically Ill and Other (On BiPAP)
HEENT: Other (BiPAP )
Respiratory: Rales (Bibasilar)
Cardiac: Bradycardia
GI: Soft, Non Tender and Non Distended
Musculoskeletal: No Clubbing, No Cyanosis, Edema, Left Lower Extremity and Edema, Right Lower Extremity
Skin: Warm and Dry
Neuro: AO x 3, No Motor Deficits and Nonfocal/grossly intact
Psych: Calm
Laboratory Results
-
07/26/24 20:12
07/26/24 20:12
Laboratory Results
Total Bilirubin 0.5 mg/dl (0.2-1.3) 07/26/24 20:12
AST 30 U/L (14-36) 07/26/24 20:12
ALT 48 U/L (0-35) H 07/26/24 20:12
Alkaline Phosphatase 102 U/L (38-126) 07/26/24 20:12
Troponin I < 0.012 ng/ml 07/26/24 20:12
Impression/Plan
-
IMPRESSION:
The patient is an 88-year-old woman with past medical history significant for recent hospital discharge on July 22 from here secondary to altered mental status, new onset of atrial fibrillation and acute kidney injury, for which cardiology was
consulted and she was initiated on amiodarone and metoprolol and they discussed that she was not an acceptable candidate for anticoagulation given her high bleeding risk as well as cerebral amyloid angiopathy, evaluated by neurology at the time
recommended to continue aspirin and atorvastatin and discontinued donepezil, and she was discharged on Lasix 20 mg tablets every other day as well, who presents to the emergency department today in respiratory distress. She has had increased
dyspnea over the past 6 to 8 hours prior to arrival. Of note she has been on 2 L oxygen since discharge from the hospital. Initially the ED provider thought that she had been treated for pneumonia based on discussion with intermediate via EMS
however the patient is not being treated for pneumonia at this time. Of note she was also quite bradycardic in the emergency department with her heart rate being in the 30s to 40s.
# Concern is for new onset acute CHF, WBC is elevated however she is afebrile and does not have obvious radiographic evidence for pneumonia, official report is pending
�proBNP 4250 and it was 1098 on July 13, 2024
- Troponin less than 0.012
- Continue BiPAP 10/5 for now with close monitoring
- Humidify the air in the BiPAP per respiratory therapy as the patient's mouth is dry
- Continue IV Lasix twice daily for now
- Consult cardiology
- Echocardiogram
# Bradycardia, likely secondary to AV geronimo blockers that are new
- Hold beta-ann for now
- Monitor on telemetry
# ANDREAS, creatinine is 2.1 up from 1.6 on July 24, possibly related to new onset of acute CHF, the patient does not appear volume depleted
-Repeat BMP in the morning after IV Lasix
-Avoid nephrotoxic agents
-Intake and output monitoring, daily weights
#A.fib, currently with bradycardia
-hold BB and amiodarone for now
- Monitor on telemetry, discuss with Cardiology
Chronic medical conditions:
DM-II
Prior CVA (diagnosed by imaging - asymptomatic)
Anxiety / Depression
Melanoma
Endometrial Cancer
Obesity
Dementia
DVT proph
DNR
[2024-07-26 22:00] VITALS: BP 132/60
--- NOTE | 2024-07-26 22:15 | EDRN ---
Dr. Griffiths at bedside working on admission, patient also reporting feeling very dry, respiratory called to place patient on some humidified air through bipap, also gave patient a few sips of water at this time as well, other cormier patient resting
comfortably, patient's heart rate has remained the same, as low as 37, Dr. Griffiths and Dr. Khalil aware of this.
[2024-07-26] MEDS: LASIX 40 MG IV (22:23)
[2024-07-26 23:00] VITALS: BP 135/61
[2024-07-27] VITALS (15 sets, daily range): BP systolic 112–160; BP diastolic 44–98; PULSE 3–43; BMI 36.4
--- NOTE | 2024-07-27 01:19 | PTCARENOTE ---
Pt received from ED to IMU. AAOx1. Forgetful, not good historian. Received on BIPAP L POX 96%. Bradycardia/Afib irregular rhythm rate 30's-40's. Pt asymptomatic. Denies dizziness or lightheadedness. Slightly tachypneic mid to upper 20's.
Afebrile. YAVAPAI-APACHE. +1 LE edema. Hypoactive BS. Pt unsure of last BM. Purewick placed. Skin as documented. Rest of assessment as documented. Received CHG bath on arrival to floor. Call pollock within reach. Will continue to monitor.
[2024-07-27 04:42] LABS: Hematocrit 28.3 % (37.0-47.0); Hemoglobin 9.3 g/dL (12.0-16.0); Mean Corp Hgb Conc. 32.9 g/dL (33.0-37.0); Mean Corpuscular Hgb 32.1 pg (27.0-31.0); Mean Corpuscular Volume 97.6 fL (81.0-99.0); Platelet Count 293 10^3/uL (130-400); Red Cell Dist. Width 13.6 % (11.5-14.5); White Blood Cell Count 14.4 10^3/uL (4.8-10.8)
[2024-07-27 04:56] LABS: ALT (SGPT) 43 U/L (0-35); AST (SGOT) 23 U/L (14-36); Albumin 2.8 g/dl (3.5-5.0); Alkaline Phosphatase 89 U/L (38-126); Blood Urea Nitrogen 57 mg/dl (7-17); Calcium 8.8 mg/dl (8.4-10.2); Carbon Dioxide 28 mmol/L (22-30); Chloride 102 mmol/L (98-107); Estimated Creatinine Clearance 21 ml/min; Glucose 147 mg/dl (70-99); Magnesium 2.6 mg/dl (1.6-2.3); Potassium 4.9 mmol/L (3.5-5.1); Sodium 138 mmol/L (135-145); Total Bilirubin 0.6 mg/dl (0.2-1.3); Total Protein 5.5 g/dl (6.3-8.2); eGFR 21.17
[2024-07-27 05:26] LABS: TSH Reflex To Free T4 2.36 uIU/ml (0.47-4.68)
--- NOTE | 2024-07-27 07:38 | W.PN.HOSP.TC ---
Today's Communication/Plan
-
Lasix IV
Transition to nasal cannula oxygen
Cardiology consult
Echocardiogram
Renal/bladder ultrasound
Urinalysis
Assessment / Plan
Assessment / Plan
Gen-awake, alert, NAD
HEENT-NC, AT, anicteric, BiPAP mask
Neck-supple
CV-reg, no M, +S1/S2
Lungs-clear B/L
Abd-soft, NT, ND
Ext-no edema
Musculoskeletal-no cyanosis, clubbing
Skin-warm and dry
Neuro-grossly non-focal
Psych-calm, cooperative
Acute hypoxic respiratory failure - likely due to acute pulmonary edema due to acute heart failure exacerbation. Apparently patient has been on 2 L nasal cannula oxygen since discharge from the hospital last week. Transition off BiPAP to nasal
cannula as tolerated. Discussed with nursing.
Chest x-ray was one-view and limited, does show small bilateral pleural effusions, pulmonary edema, bilateral lower lobe infiltrates, suspect atelectasis. Clinically doubt pneumonia.
Acute heart failure preserved EF exacerbation -continue IV Lasix. Cardiology consulted. Suspect trigger is bradycardia. BNP 4250.
ANDREAS -cardiorenal versus other etiology. Creatinine on admission 2.1, 2.2 today. Check renal/bladder ultrasound. Check urinalysis. Nephrology consult if renal function worsens.
Asymptomatic leukocytosis -afebrile. Suspect leukemoid reaction. WBCs trending down. Monitor for now.
Paroxysmal atrial fibrillation -new diagnosis during last hospitalization, discharged July 21 on amiodarone and metoprolol. Not ordered anticoagulation on discharge due to cardiology recommendation, deemed to be high risk due to advanced age and
cerebral amyloid angiopathy.
Beta-ann and amiodarone currently on hold for bradycardia. Cardiology consulted.
DM2 without hyperglycemia -not on diabetes meds at home. Hemoglobin A1c 6.3% in June 2024.
Essential hypertension -stable.
Chronic normocytic anemia - hemoglobin near baseline.
Dementia -unknown type.
RANJAN
Urinary incontinence
History of endometrial cancer -2017.
Hyperlipidemia -atorvastatin.
History of melanoma
Obesity due to excess calories
DNR
Anticipated Discharge: > 48 hours
Subjective/Interval History
-
Date of Service: July 27, 2024
Patient seen and examined. Feels better, no complaints. Still on BiPAP.
Objective Data
-
Labs:
Laboratory Results
07/26/24 07/27/24 07/27/24
20:12 03:39 03:40
WBC 18.7 H 14.4 H
Hgb 10.1 L 9.3 L
Hct 30.9 L 28.3 L
Plt Count 373 D 293 D
Sodium 136 138
Potassium 5.3 H 4.9
Chloride 102 102
Carbon Dioxide 26 28
BUN 56 H 57 H
Creatinine 2.1 H 2.2 H
Glucose 181 H 147 H
Calcium 9.0 8.8
Total Bilirubin 0.5 0.6
AST 30 23
ALT 48 H 43 H
Alkaline Phosphatase 102 89
Vital Signs:
Vital Signs
Temp Pulse Resp BP Pulse Ox
97.9 F 45 25 135/50 96
07/27/24 03:00 07/27/24 06:00 07/27/24 06:00 07/27/24 06:00 07/27/24 06:00
Review of Systems
-
Unable to obtain full review of systems at this time due to: Dementia
History Source: Patient
All other systems: Reviewed and negative
[2024-07-27] MEDS: APRESOLINE 25 MG PO ×2 (08:50→19:40)
[2024-07-27] MEDS: MIRALAX 17 GRAMS PO (08:50)
[2024-07-27] MEDS: LOW STRENGTH ASPIRIN 81 MG PO (08:50)
[2024-07-27] MEDS: LEXAPRO 5 MG PO (08:50)
[2024-07-27] MEDS: LASIX 40 MG IV (08:51)
[2024-07-27] MEDS: HEPARIN 5000 UNITS SC ×2 (08:51→19:38)
[2024-07-27 10:00] LABS: Urine Albumin 1+ (Neg - Trace); Urine Bilirubin Negative (Negative); Urine Character Clear (Clear); Urine Color Yellow; Urine Glucose Negative (Negative); Urine Ketone Negative (Negative); Urine Leukocyte Negative (Negative); Urine Nitrite Negative (Negative); Urine Occult Blood Negative (Negative); Urine Urobilinogen Negative (Neg - 1+)
[2024-07-27 10:16] LABS: Urine Squamous Cell >30 /LPF (Few)
[2024-07-27 10:17] LABS: Urine Bacteria Few (Negative); Urine Calcium Oxalate Crystals Seen; Urine Red Blood Cell 0-2 /HPF (0-2); Urine White Cell 0-2 /HPF (0-5)
--- NOTE | 2024-07-27 12:16 | CON.CAR ---
Consultation
Consultation Request
Date/Time Consultation Requested: 07/27/24
Date/Time Consultation Performed: 07/27/24
Reason for Consultation: Bradycardia and CHF
Medical History
-
Chief Complaint: Dyspnea
History of Present Illness:
88-year-old woman with past medical history significant for recent hospital discharge on July 22 from here secondary to altered mental status, new onset of atrial fibrillation and acute kidney injury, for which cardiology was consulted and she was
initiated on amiodarone and metoprolol and they discussed that she was not an acceptable candidate for anticoagulation given her high bleeding risk as well as cerebral amyloid angiopathy, evaluated by neurology at the time recommended to continue
aspirin and atorvastatin and discontinued donepezil, and she was discharged on Lasix 20 mg tablets every other day as well, who presents to the emergency department today in respiratory distress. She has had increased dyspnea over the past 6 to 8
hours prior to arrival. Of note she has been on 2 L oxygen since discharge from the hospital. Initially the ED provider thought that she had been treated for pneumonia based on discussion with [facility] via EMS however the patient is not being
treated for pneumonia at this time. She was taking nitrofurantoin for a prebladder Botox. On arrival to the emergency department she was hypoxic with a oxygen saturation of 86, she was initiated on BiPAP. Chest x-ray is showing right sided
pleural effusion with possible increased vascularity. She is being admitted for possible new onset CHF. Of note she was also quite bradycardic in the emergency department with her heart rate being in the 30s to 40s. She denies chest pain, no
palpitations, no lightheadedness, no dizziness, no nausea vomiting diarrhea nor abdominal complaints, no dysuria. No fevers.
Pt is not on any negative chronotropic agents. She was diagnosed with AF and was rate controlled with out the need. developed Rl and pauses with amiodarone and metoprolol. Now she presented with severe sinus rl and CHF. The onset of CHF is
likelt due to her baseline bradycardia and cardiology is consulted to further evaluate.
Past Medical History
Past Medical History: Arrhythmias (AF), CVA, HTN, NIDDM and Other (Cancer (Endometrial cancer), HTN, Hypercholesterolemia, Psychiatric (chronic cough, dementia, obstructive sleep apnea, osteopenia,urinary incontinence, osteoarthritis, constipation))
Past Surgical History: Other (Right Breast Biopsy Tubal Ligation D&C Robotic Hysterectomy / BSO Left BETTINA Melanoma Excision)
Social History
Tobacco: Non-Smoker
Alcohol: None
Drug: None
Living: With Family
Family History
Family History: Reviewed & Not Pertinent
Allergies / Home Medications
Allergy/AdvReac Type Severity Reaction Status Date / Time
Calcium Channel Blocking Allergy Shortness Verified 07/12/24 20:14
Agent Dilt of breath,
weakness,
tired
verapamil Allergy Shortness Verified 07/12/24 20:14
of breath,
weakness,
tired
�Medication �Instructions �Recorded �Confirmed �Type
nmwvpjoo-vmly-gvvy 8 mg-folic 400 1 ea PO DAILY Supplement 06/06/18 07/26/24 History
mcg-K 50 mcg-lutein 300 mcg tablet
(Centrum Silver Women)
escitalopram oxalate 5 mg tablet 5 mg PO DAILY Mental Health/Anxiety 03/15/20 07/26/24 History
sennosides 8.6 mg tablet (senna) 2 tab PO BID PRN constipation 03/15/20 07/26/24 History
simvastatin 20 mg tablet 20 mg PO HS High cholesterol 03/15/20 07/26/24 History
aspirin 81 mg capsule 81 mg PO DAILY Blood Clot 05/12/23 07/26/24 History
Prevention/Tx
furosemide 20 mg tablet (Lasix) 20 mg PO .EVERYOTHERDAY Fluid 07/13/24 07/26/24 History
Retention/Swelling
amiodarone 200 mg tablet 200 mg PO DAILY #20 tabs 07/21/24 07/26/24 Rx
amiodarone 200 mg tablet 400 mg (2 x 200 mg) PO BID #20 tabs 07/21/24 07/26/24 Rx
hydralazine 25 mg tablet 25 mg PO BID #0 tabs 07/21/24 07/26/24 Rx
metoprolol succinate 50 mg 50 mg PO BID #0 tabs 07/21/24 07/26/24 Rx
tablet,extended release 24 hr
polyethylene glycol 3350 17 gram 17 g PO DAILY #0 ea 07/21/24 07/26/24 Rx
oral powder packet
acetaminophen 650 mg tablet 650 mg PO Q6H PRN temp 07/26/24 07/26/24 History
amino acids-protein hydrolysate 16 30 ml PO DAILY 07/26/24 07/26/24 History
gram-100 kcal/30 mL liquid packet
(Liquacel)
atorvastatin 10 mg tablet 10 mg PO HS 07/26/24 07/26/24 History
magnesium hydroxide 400 mg/5 mL 30 ml PO HS PRN constipation 07/26/24 07/26/24 History
oral suspension (Milk of Magnesia)
nitrofurantoin macrocrystal 100 mg 100 mg PO BID 07/26/24 07/26/24 History
capsule
Review of Systems
-
All other systems: Negative unless noted
Physical Exam
Vital Signs
Temp Pulse Resp BP Pulse Ox
97.5 F 52 24 142/83 98
07/27/24 11:10 07/27/24 12:00 07/27/24 12:00 07/27/24 12:00 07/27/24 12:00
Lab Results
07/27/24 03:40
07/27/24 03:39
Troponin I < 0.012 ng/ml 07/26/24 20:12
Avg-J-Mstdfbwuzgu Pept 4250 pg/ml 07/26/24 20:12
Physical Exam
General: Well Developed and Well Nourished
HEENT: Normocephalic, Anicteric and Moist Mucous Membranes
Respiratory: Clear, Wheezes and Non Labored Respirations
Cardiac: S1/S2, Regular Rhythm and Murmur
GI: Soft, Non Tender, Non Distended and Normal Bowel Sounds
Musculoskeletal: No Clubbing, No Cyanosis and No Edema
Skin: Warm and Dry
Neuro: Awake and Alert
Psych: Confused
Impression / Plan
-
88 yrs old woman with secondary to altered mental status, new onset of atrial fibrillation and acute kidney injury and was found to be not an acceptable candidate for anticoagulation given her high bleeding risk as well as cerebral amyloid
angiopathy. She is here with severe sinus bradycardia and acute heart failure.
CHF
- Acute heart failure with fluid retention
- proBNP 4250 and it was 1098 on July 13, 2024
- Off BiPAP now.
- Was on Metoprolol 50 mg BID.
- Holding Metoprolol at this time./
- Diuresis
- ECHO Dorothea
AF
- High CHADSVasc score
- CHADSVasc score is 8- age, gender, HTN, DM, CVA, CHF
- Discussed with Neuro - not a candidate for chronic anticoagulation
- Now in sinus rhythm.
- Holding Metoprolol
- If Metoprolol is needed again, then would need pacing.
- With holding Metoprolol, will observe the need for PPM
ANDREAS
- ADNREAS noted with baseline CKD/
- cr is 2.1 up from 1.6 on July 24
Data Reviewed
-
EKG: Tracing Personally Visualized and interpreted
Medical Tests (Nuc Med, Echo etc): Image Personally Visualized and interpreted
Labs: Labs Reviewed by me
Old Records: Reviewed
--- NOTE | 2024-07-27 14:44 | CM ---
Spoke with daughter Jimmy to complete initial assessment
Pt was recent d/c from , admitted from [facility]
Lives in split level with her ; no JES, 5 steps between levels
Needs assist with ADL's - dressing, bathing, meds
DME - grab bar/seat in shower
SNF - [facility] [facility]
PCP - Adryan Freeman
Pharm - [facility]
Plan - TBD based on needs; anticipate SNF
--- NOTE | 2024-07-27 17:37 | PTCARENOTE ---
Patient's family at the bedside and updated per RN ability. Patient only stating that she liked cheerio's thoughout the day. Family also circled food they think patient would like on menu and adhered to diet restriction. Pt on 2L NC, spo2 97%.
Assessment, care and VS as charted.
[2024-07-27] MEDS: TYLENOL 650 MG PO (19:37)
[2024-07-27] MEDS: LIPITOR 10 MG PO (19:37)
[2024-07-28] VITALS (15 sets, daily range): BP systolic 134–155; BP diastolic 39–98; PULSE 56–57; O2SAT 94–95; BMI 36.5
--- NOTE | 2024-07-28 02:58 | PTCARENOTE ---
Received pt from [facility]. Pt aaox1, forgetful. Bed alarm on. Pt assessed, medications given. Pt incontinent of urine, washed with bath wipes, purwick exchanged. C/o frontal headache. PO tylenol given. VSS. Care ongoing.
[2024-07-28 05:33] LABS: Hematocrit 29.3 % (37.0-47.0); Hemoglobin 9.6 g/dL (12.0-16.0); Mean Corp Hgb Conc. 32.8 g/dL (33.0-37.0); Mean Corpuscular Hgb 32.2 pg (27.0-31.0); Mean Corpuscular Volume 98.3 fL (81.0-99.0); Mean Platelet Volume 10.1 fL (7.4-10.4); Platelet Count 311 10^3/uL (130-400); Red Blood Cell Count 2.98 10^6/uL (4.20-5.40); Red Cell Dist. Width 13.6 % (11.5-14.5); White Blood Cell Count 10.4 10^3/uL (4.8-10.8)
[2024-07-28 05:37] LABS: Blood Urea Nitrogen 59 mg/dl (7-17); Calcium 8.8 mg/dl (8.4-10.2); Carbon Dioxide 30 mmol/L (22-30); Chloride 102 mmol/L (98-107); Estimated Creatinine Clearance 21 ml/min; Glucose 115 mg/dl (70-99); Potassium 4.8 mmol/L (3.5-5.1); Sodium 139 mmol/L (135-145); eGFR 21.17
--- NOTE | 2024-07-28 08:05 | W.PN.CD ---
Today's Communication / Plan
-
-
- Check co-pay for SGLT2-I
- 1 more day of IV Lasix
- Will try Amiodarone 200 mg daily (start 07/29/2024)
- If need more med to control PAF => pacemaker
- Stay off metoprolol, unless pacer placed
Impression / Plan
-
88 yrs old woman with secondary to altered mental status, new onset of atrial fibrillation and acute kidney injury and was found to be not an acceptable candidate for anticoagulation given her high bleeding risk as well as cerebral amyloid
angiopathy. She is here with severe sinus bradycardia and acute heart failure.
New onset HFpEF
- No spironolactone given ANDREAS
- Check co-pay for SGLT2-I
- 1 more day of IV Lasix
- Acute heart failure with fluid retention
Abnormal CXR
- Radiology concerned about potential pneumonia
Paroxysmal AFib
- Amio load to 200 daily + Metoprolol 50 bid just too much
- Not an anticoagulation candidate based on last admission with cerebral angiopathy concern
- Will try Amiodarone 200 mg daily (start 07/29/2024)
- If need more med to control PAF => pacemaker
- Stay off metoprolol, unless pacer placed
- Cameron Man, discussed with daughter
Sinus bradycardia
- Medication induced
- Will try less medication but may need a pacamaker, see above
ANDREAS
- ANDREAS noted with baseline CKD/
- cr is 2.1 up from 1.6 on July 24
Dementia, progressive, significant
Subjective: No CP, dyspnea better
Physical Exam
Vital Signs/Labs
Vital Signs
Temp Pulse Resp BP Pulse Ox
97.6 F 51 21 144/98 96
07/28/24 07:28 07/28/24 06:00 07/28/24 06:00 07/28/24 06:00 07/28/24 06:00
07/27/24 07/28/24 07/29/24
06:59 06:59 06:59
Actual Weight 99.2 kg 99.5 kg
07/28/24 04:45
07/28/24 04:45
Magnesium 2.6 mg/dl (1.6-2.3) H 07/27/24 03:39
07/26/24
20:12
Eux-F-Qhzsxrmczwu Pept 4250
LAB Results
07/26/24
20:12
Troponin I < 0.012
Physical Exam
Constitutional: No acute distress
EENT: Anicteric
Cardiovascular: Rhythm & rate is regular and Pedal edema is absent
Respiratory: Respiratory effort normal and Other (decreased at bases)
GI: Soft and Distention absent
Neuro/Psych: Alert
Data Reviewed
-
Date of Service: July 28, 2024
[2024-07-28] MEDS: APRESOLINE 25 MG PO ×2 (08:10→20:15)
[2024-07-28] MEDS: LOW STRENGTH ASPIRIN 81 MG PO (08:10)
[2024-07-28] MEDS: HEPARIN 5000 UNITS SC ×2 (08:10→20:15)
[2024-07-28] MEDS: MIRALAX 17 GRAMS PO (08:10)
[2024-07-28] MEDS: LEXAPRO 5 MG PO (08:10)
[2024-07-28] MEDS: LASIX 40 MG IV (08:11)
--- NOTE | 2024-07-28 10:29 | CM ---
Addendum entered by Jordana Castle RN 07/28/24 12:03:
PT/OT Evals pending.
CM Consult: Nicholson checks Entresto, Farxiga, Jardiance.
Per [employer] ambulatory orders, Entresto $169.18/month, Farxiga $143.90, Jardiance $1260.36/month.
Met with patient, and daughter Shalini; Daughter not agreeing with Jardiance due to cost and unwilling to commit to the other 2 until she talks to you why they were ordered and whether one or both are needed. CM explained Free Month cards.
Message to Dr Cameron mcdaniel; above related to med costs.
Plan follow up after seen by PT/OT and add Evals to the referral.
Plan probable return to [facility] when medically ready.
Original Note:
Patient from [facility] with Hx dem,entia with Dx Acute hypoxic respiratory failure, HF, PAF, Sinus Rl. O2 2L. Receiving IV Lasix. Per nurse assessment; A/O, forgetful, assist of 2/bedrest.
Phone call to daughter Shalini; left message requesting callback as to whether patient/family is hoping for patient to return to [facility] at discharge.
Message to Dr Beckford requesting PT/OT Evals.
Phone call to Stanton Grant; left message inquiring if family held the bed.
Plan follow up after seen by PT/OT.
--- NOTE | 2024-07-28 15:39 | W.PN.HOSP.TC ---
Today's Communication/Plan
-
Assessment / Plan
Assessment / Plan
Gen-awake, alert, NAD
HEENT-NC, AT, anicteric, BiPAP mask
Neck-supple
CV-reg, no M, +S1/S2
Lungs-clear B/L
Abd-soft, NT, ND
Ext-no edema
Musculoskeletal-no cyanosis, clubbing
Skin-warm and dry
Neuro-grossly non-focal
Psych-calm, cooperative
Acute hypoxic respiratory failure
-Improving
- likely due to acute pulmonary edema due to acute heart failure exacerbation.
-Apparently patient has been on 2 L nasal cannula oxygen since discharge from the hospital last week, continue with low flow nasal cannula as needed
-Chest x-ray was one-view and limited, does show small bilateral pleural effusions, pulmonary edema, bilateral lower lobe infiltrates, suspect atelectasis. Clinically doubt pneumonia special considering recent course of antibiotics
Acute heart failure preserved EF exacerbation
-continue IV Lasix, likely transition to p.o. in the next 24 to 48 hours
-Suspect trigger is bradycardia in the setting of amiodarone loading
-Avoid beta-blockade unless pacemaker is placed
-Cardiology consulted
ANDREAS
-Suspect cardiorenal
- Renal bladder ultrasound shows mild to moderate chronic bilateral renal disease, no evidence of hydronephrosis, small parapelvic cyst in the left kidney
-Suspect baseline creatinine is around 1.5, however it is 2.2 today
- Will monitor for improvement with diuresis
-Will consult nephrology if renal function does not improve
Asymptomatic leukocytosis
-Resolving
-afebrile, suspect leukemoid reaction.
- WBCs trending down. Monitor for now.
Paroxysmal atrial fibrillation
-new diagnosis during last hospitalization, discharged July 21 on amiodarone and metoprolol.
-Not ordered anticoagulation on discharge due to cardiology recommendation, deemed to be high risk due to advanced age and cerebral amyloid angiopathy.
-Will discontinue beta-ann completely and less pacemakers placed
- Restart amiodarone 200 mg daily tomorrow 07/29
DM2 without hyperglycemia -not on diabetes meds at home. Hemoglobin A1c 6.3% in June 2024.
Essential hypertension -stable.
Chronic normocytic anemia - hemoglobin near baseline.
Dementia -unknown type, suspect vascular
RANJNA
Urinary incontinence
History of endometrial cancer -2017.
Hyperlipidemia -atorvastatin.
History of melanoma
Obesity due to excess calories
DNR
Anticipated Discharge: 24 - 48 hours
Subjective/Interval History
-
Date of Service: July 28, 2024
Patient was seen and examined at bedside. One of her daughters and her were also at bedside. She has no current complaints and is no acute distress. Her heart rate remains in the mid 50s. Her amiodarone has been decreased to 200 mg once
daily.
Objective Data
-
Labs:
Laboratory Results
07/28/24
04:45
WBC 10.4
Hgb 9.6 L
Hct 29.3 L
Plt Count 311
Sodium 139
Potassium 4.8
Chloride 102
Carbon Dioxide 30
BUN 59 H
Creatinine 2.2 H
Glucose 115 H
Calcium 8.8
Vital Signs:
Vital Signs
Temp Pulse Resp BP Pulse Ox
97.5 F 57 26 147/50 93
07/28/24 11:15 07/28/24 14:00 07/28/24 14:00 07/28/24 14:19 07/28/24 14:00
I&O
07/27/24 07/28/24 07/29/24
06:59 06:59 06:59
Intake Total 480 / 480
Output Total 805 / 805 500 / 500
Balance -805 / -805 -20 / -20
Review of Systems
-
Unable to obtain full review of systems at this time due to: Dementia
History Source: Patient
All other systems: Reviewed and negative
Physical Exam
-
General: No Apparent Distress
--- NOTE | 2024-07-28 16:20 | PTCARENOTE ---
Patient AOx2. Patient is disoriented to time. Bed and chair alarm on audible. Patient on 2L NC. Sinus stephen on monitor with prolonged QT, first degree, and BBB. HR in 40's-50's patient asymptomatic. Patient incontinent to urine. Purewick draining
yellow urine. Assist x1 with RW when OOB. Call pollock within reach, bed in lowest position, and bed of wheels locked.
[2024-07-28] MEDS: LIPITOR 10 MG PO (20:15)
[2024-07-29] VITALS (15 sets, daily range): BP systolic 101–157; BP diastolic 47–106; BMI 36.0
[2024-07-29] MEDS: DESENEX/MITRAZOL/ZEASORB 1 APPLIC TOPICAL ×3 (00:04→20:26)
--- NOTE | 2024-07-29 00:35 | PTCARENOTE ---
Received pt from mamiearjayna RN. Pt aaox1-2, forgetful/confused but pleasant. Bed alarm on. No c/o pain. PM medications given. Assessment remains unchanged from previous night. No need for bipap at this time. SaO2 94% on 2LNC. CARROLL, shallow. Lungs
coarse with crackles in bases. VSS. Care ongoing.
[2024-07-29 04:54] LABS: Hematocrit 29.5 % (37.0-47.0); Hemoglobin 9.5 g/dL (12.0-16.0); Mean Corp Hgb Conc. 32.2 g/dL (33.0-37.0); Mean Corpuscular Hgb 31.6 pg (27.0-31.0); Mean Platelet Volume 10.2 fL (7.4-10.4); Platelet Count 346 10^3/uL (130-400); Red Blood Cell Count 3.01 10^6/uL (4.20-5.40); Red Cell Dist. Width 13.6 % (11.5-14.5); White Blood Cell Count 11.2 10^3/uL (4.8-10.8)
[2024-07-29 05:27] LABS: Blood Urea Nitrogen 53 mg/dl (7-17); Calcium 8.6 mg/dl (8.4-10.2); Carbon Dioxide 32 mmol/L (22-30); Chloride 102 mmol/L (98-107); Estimated Creatinine Clearance 24 ml/min; Glucose 141 mg/dl (70-99); Potassium 4.5 mmol/L (3.5-5.1); Sodium 137 mmol/L (135-145); eGFR 25.24
--- NOTE | 2024-07-29 07:49 | PTCARENOTE ---
Dr. Mcmillan and Dr. Beckford made aware that patient had 2 episodes of a flutter and then went back into sinus stephen. EKG done. Patient asymptomatic and resting in bed. Care ongoing.
[2024-07-29] MEDS: MIRALAX 17 GRAMS PO (07:53)
[2024-07-29] MEDS: LOW STRENGTH ASPIRIN 81 MG PO (07:54)
[2024-07-29] MEDS: APRESOLINE 25 MG PO (07:54)
[2024-07-29] MEDS: LEXAPRO 5 MG PO (07:54)
[2024-07-29] MEDS: PACERONE 200 MG PO (07:54)
[2024-07-29] MEDS: LASIX 40 MG IV (07:55)
[2024-07-29] MEDS: HEPARIN 5000 UNITS SC ×2 (07:55→20:27)
--- NOTE | 2024-07-29 08:26 | PTCARENOTE ---
Dr. Mcmillan and Dr. Beckford made aware that patient is in a fib RVR with HR in 130's-140's. EKG done. Patient asymptomatic and resting in bed. Care ongoing.
--- NOTE | 2024-07-29 08:47 | W.PN.CD ---
Today's Communication / Plan
-
Pacmaker
More rate control once pacer in place
PO Lasix
Impression / Plan
-
88 yrs old woman with secondary to altered mental status, new onset of atrial fibrillation and acute kidney injury and was found to be not an acceptable candidate for anticoagulation given her high bleeding risk as well as cerebral amyloid
angiopathy. She is here with severe sinus bradycardia and acute heart failure.
Paroxysmal AFib
- Amio load to 200 daily + Metoprolol 50 bid just too much
- Will benefit from pacemaker as AFib RVR has recurred
- Not an anticoagulation candidate based on last admission with cerebral angiopathy concern
- Once pacer placed use Amio and metoprolol for rate control
- High risk for recurrent and worse bradycardia
- Pt and family agreeable to have pacemaker placed
New onset HFpEF
- No spironolactone given ANDREAS
- Co-pay for SGLT2-I mayte ARNI are too expensive => will not use
- Move to PO Lasix
- Acute heart failure with fluid retention
- Echo 07/28/2024 with normal LVEF left sided valves OK
Abnormal CXR
- Radiology concerned about potential pneumonia
Sinus bradycardia
- Will benefit from pacemaker to allow better control of PAF with RVR and prevent severe bradycardia, family agreeable
ANDREAS
- ANDREAS noted with baseline CKD/
- cr is 2.1 up from 1.6 on July 24
Dementia, progressive, significant
LBBB vs LVH with QRS widening,
Subjective: No CP, dyspnea better
Physical Exam
Vital Signs/Labs
Vital Signs
Temp Pulse Resp BP Pulse Ox
98.0 F 57 26 154/83 93
07/29/24 07:23 07/29/24 07:55 07/29/24 04:00 07/29/24 07:55 07/29/24 04:00
07/28/24 07/29/24 07/30/24
06:59 06:59 06:59
Actual Weight 99.5 kg 98 kg
07/29/24 04:18
07/29/24 04:18
Magnesium 2.6 mg/dl (1.6-2.3) H 07/27/24 03:39
07/26/24
20:12
Qgt-O-Xfnusfnwgfj Pept 4250
LAB Results
07/26/24
20:12
Troponin I < 0.012
Physical Exam
Constitutional: No acute distress
EENT: Anicteric
Cardiovascular: Rhythm/rate is irregular and S1S2 is normal
Respiratory: Respiratory effort normal and Lungs clear to auscul.
GI: Soft and Distention absent
Neuro/Psych: Alert
Data Reviewed
-
Date of Service: July 29, 2024
--- NOTE | 2024-07-29 09:59 | CM ---
Patient from [facility] with Hx dem,entia with Dx Acute hypoxic respiratory failure, HF, PAF. Plan pacemaker. O2 2L. Receiving Amiodarone PO, Lasix 80 PO. PT/OT Evals 07/28; requires assist of 2, recommend skilled rehab.
SNF referral updated with therapy notes.
CM continuing to follow.
Plan probable return to [facility] when medically ready.
--- NOTE | 2024-07-29 10:03 | PN.CDI ---
CDI
- -
CDI:
Physician Documentation Request
Admit Date: 07/27/24 00:01
Dear Doctor Analy,
Patient admitted for heart failure.
ED Physician Documentation: 'Patient has been on 2 L since being discharged from the hospital.'
07/28 Hospitalist PN: 'Acute hypoxic respiratory failure...Apparently patient has been on 2 L nasal cannula oxygen since discharge from the hospital last week, continue with low flow nasal cannula as needed'
Clarify which of the following accurately represents the patient's respiratory status:
Acute on chronic hypoxic respiratory failure
Acute hypoxic respiratory failure
Other
Use of terms such as suspected, likely, concern for, or probable (associated with a specific diagnosis that is being evaluated, monitored, or treated as if it exists) are acceptable and can be coded in the inpatient setting, when documented at the
time of discharge.
Thank you,
Olga Perez RN, BSN
CDI Specialist
Available via [place] text
Please use your independent medical judgment in providing your response.
--- NOTE | 2024-07-29 14:05 | W.PN.HOSP.TC ---
Today's Communication/Plan
-
Assessment / Plan
Assessment / Plan
Gen-awake, alert, NAD
HEENT-NC, AT, anicteric, nasal cannula in place
Neck-supple
CV-irregular, heart rate 120s
Lungs-clear B/L
Abd-soft, NT, ND
Ext-no edema
Musculoskeletal-no cyanosis, clubbing
Skin-warm and dry
Neuro-grossly non-focal
Psych-calm, cooperative
Acute on chronic hypoxic respiratory failure
-Improving
- likely due to acute pulmonary edema due to acute heart failure exacerbation.
-Apparently patient has been on 2 L nasal cannula oxygen since discharge from the hospital last week, continue with low flow nasal cannula as needed
-Chest x-ray was one-view and limited, does show small bilateral pleural effusions, pulmonary edema, bilateral lower lobe infiltrates, suspect atelectasis. Clinically doubt pneumonia special considering recent course of antibiotics
Acute heart failure preserved EF exacerbation
-Transitioned to Lasix 80 mg p.o. daily
-Suspect trigger is bradycardia in the setting of amiodarone loading
-Avoid beta-blockade until pacemaker is placed
-Cardiology following
A-fib with RVR:
- Heart rate has been difficult to control recently
- Now with rapid heart rate since this morning restarting amiodarone 200 mg daily
- Plan for pacemaker placement, hopefully today 07/29
- Will plan to reinitiate beta-ann once pacemaker is in place
- No anticoagulation, deemed to be high risk due to advanced age and bleeding risk with cerebral amyloid angiopathy.
ANDREAS
-Suspect cardiorenal
- Renal bladder ultrasound shows mild to moderate chronic bilateral renal disease, no evidence of hydronephrosis, small parapelvic cyst in the left kidney
-Suspect baseline creatinine is around 1.5, however it was 2.2 at time of admission, improved to 1.9 today
- Will monitor for continued improvement with diuresis
Asymptomatic leukocytosis
-afebrile, suspect leukemoid reaction.
- Monitor for resolution with control of heart rate
DM2 without hyperglycemia -not on diabetes meds at home. Hemoglobin A1c 6.3% in June 2024.
Essential hypertension -stable.
Chronic normocytic anemia - hemoglobin near baseline.
Dementia -unknown type, suspect vascular
RANJAN
Urinary incontinence
History of endometrial cancer -2017.
Hyperlipidemia -atorvastatin.
History of melanoma
Obesity due to excess calories
DNR
Anticipated Discharge: 24 - 48 hours
Subjective/Interval History
-
Date of Service: July 29, 2024
Patient was seen and examined at bedside this morning. Heart rate has been uncontrolled this morning with rate up to the 140s. Planning pacemaker placement today.
Objective Data
-
Labs:
Laboratory Results
07/29/24
04:18
WBC 11.2 H
Hgb 9.5 L
Hct 29.5 L
Plt Count 346
Sodium 137
Potassium 4.5
Chloride 102
Carbon Dioxide 32 H
BUN 53 H
Creatinine 1.9 H
Glucose 141 H
Calcium 8.6
Vital Signs:
Vital Signs
Temp Pulse Resp BP Pulse Ox
98.1 F 128 22 125/65 93
07/29/24 11:15 07/29/24 12:00 07/29/24 12:00 07/29/24 12:00 07/29/24 12:00
I&O
07/28/24 07/29/24 07/30/24
06:59 06:59 06:59
Intake Total 720 / 720
Output Total 805 / 805 700 / 700 800 / 800
Balance -805 / -805 20 / 20 -800 / -800
Review of Systems
-
Unable to obtain full review of systems at this time due to: Dementia
History Source: Patient
All other systems: Reviewed and negative
Physical Exam
-
General: No Apparent Distress
--- NOTE | 2024-07-29 14:16 | PTCARENOTE ---
Patient AOx2. Patient is disoriented to time. Bed alarm on audible. Patient on 2L NC. A fib on monitor with HR in 120's-140's. Patient incontinent to urine. Purewick draining yellow urine. Patients family at bedside. Call pollock within reach, bed in
lowest position, and bed of wheels locked.
--- NOTE | 2024-07-29 15:49 | PTCARENOTE ---
Patient transferred by 2 [employer]'s to OR for pacemaker insertion. Verbal report given to EZEKIEL Flanagan.
--- NOTE | 2024-07-29 17:31 | ITS.CL.PACE ---
Thermostat Maker - Pacemaker Implant
Pacemaker Implant
Procedure Report:
Dual Chamber Pacemaker Placement:
Ms. Carrillo is a very pleasant 88 yrs old woman who is confused altered mental status, new onset of atrial fibrillation and acute kidney injury and was found to be not an acceptable candidate for anticoagulation given her high bleeding risk as well as
cerebral amyloid angiopathy. 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 She has a hx of breast CA on left and is left handed. Will place right sided pacemaker. ��
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
Date of the Procedure: 07/29/24
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
Procedure Performed: DUAL CHAMBER PACEMAKER IMPLANTATION
Performing Physician:
Anisa George MD
Anesthesia:
See anesthesia records
Pre-operative antibiotics:
Ancef
Detailed Description of the Procedure:
The patient was identified using hospital identification and informed consent obtained for the procedure. The risks were explained including, but not limited to: Bleeding, infection, arrhythmia, stroke, vascular/cardiac/lung puncture, surgery,
pacemaker dependency/device malfunction. All questions were answered.
The patient was brought to the electrophysiology laboratory in stable condition in fasting state. Continuous electrocardiographic and hemodynamic monitoring was initiated. The initial rhythm was atrial fibrillation.
The procedure site was meticulously prepared with surgical scrub and allowed to dry with no pooling. Sterile draping was applied to cover the procedure site. The image intensifier was draped with sterile bag and positioned over the patient.
A surgical pause and time out was performed immediately prior to the procedure with review of her medical history, recent labs, allergies and medications with site of procedure identified and consent noted in the chart. Antibiotics pre operatively
given. All team members concurred.
The right infraclavicular region was prepped and draped in the usual sterile fashion. Local anesthesia was administered subcutaneously using 1% lidocaine / Bupivacaine. The right cephalic vein cutdown was performed with an incision at the
delto-pectoral groove, and vascular sheaths were introduced for lead access. These were advanced into the right ventricle and the right atrium. The right ventricular lead was secured in position with an active fixation technique at the apical
location. The septal locations had high threshold and with observations the hreshold went up and decision was made to move the pacing wire to more apical location. The RA lead was attached in the right atrial appendage with active fixation. There
was excellent sensing, pacing, and impedance from the leads, with no diaphragmatic stimulation at 10 V output.�Bovie cautery, antibiotics, and fluoroscopy were used.
The sheaths were withdrawn, and the thresholds remained acceptable. The leads were secured in position at the venous entry site with 2-0 Ethibond. A pocket was fashioned contiguous to the incision. The electrode terminals were connected to the pulse
generator, which was placed into the pocket.
The generator was secured to the underlying fascia with 2-0 Ethibond sutures.
The wound was irrigated thoroughly with antibiotic solution and closed in 3 layers using 2-0 V loc followed by 4-0 VLoc sutures. Steri-Strips and a bandage were applied externally.�
Procedure End:
The procedure was tolerated well.
Estimated Blood loss:
5 cc
Specimens Removed:
No cultures and no specimens were obtained. No intraoperative pathology was identified.
Fluoro time:
6.4 min /3.40Feyo3
Urine output:
None
Packs / Drains/ Tubes:
None
Instrument / Sponge Count Correct:
Yes
Complications of the Procedure:
None
Condition of Patient at Time of Transfer:
Hemodynamically stable with no neurological or vascular compromise.
Device information:�
Generator: [employer]; Model: W1DR01; Serial # [id number]�
Atrial Lead: [employer]; Model: 5076-45; Serial # [id number]�
Measured data in the right atrium was sensing of 1.3Mv of AF waves, impedance of 399 ohms and threshold not tested due to AF. �
RV Lead: [employer]; Model: 5076-52; Serial # [id number]
Measured data in the RV lead was sensing of 13.5mV, impedance of 798 ohms and threshold of 1.0 V at 0.4ms�
Stephen parameter settings were AAIR<=> DDDR 60-130 bpm. �
����������� Mode Switch: On
����������� Paced AV interval: 180ms
����������� Sensed AV interval: 150 ms.
����������� Rate Adaptive A-V Interval: Off
Output� parameters:
����������������������� Amplitude (V)������������� Pulse Width (ms)������� Sensitivity (mV)
����������� RA: ����� 3.5 ����������������� 0.4������������������ 0.3
����������� RV:������ 3.5������������������ 0.4������������������ 0.9
Summary:
Successful implantation of MRI compatible dual chamber pacemaker
Results/Recommendations:
-Please follow up CXR�
1. Please provide patient with adequate pain control�
Instructions to be given to patient:�
- Please follow up with [facility] at [address] [place] [address] ([phone]) to get your wound checked within 14 days of your discharge.
- Do not wet incision site until after it is evaluated at cardiology clinic. No showers until then. Sponge baths are OK.�
- Do not lift right elbow above shoulder, particularly with sudden jerking movements, for 1 month�
- Do not lift anything weighing more than 10 pounds with the right arm for 1 month�
- If you notice any fevers, shortness of breath, lightheadedness, chest pain, or worsening swelling in the wound site, please contact the arrhythmia clinic, contact your sportspersons, or present to the hospital for evaluation.�
Anisa George MD
Electrophysiology
--- NOTE | 2024-07-29 17:37 | PTCARENOTE ---
Patient sent to IVU from OR per transfer order. Verbal report given to Stefan FALCON. Patient belongings brought to IVU.
[2024-07-29] MEDS: LOPRESSOR 50 MG PO (18:08)
--- NOTE | 2024-07-29 18:15 | PTCARENOTE ---
Patient received from the label fuser tender. She was alert to her name, confused to place, time and situation. Oxygen 4 liters NC, POX 94%. HR 140-150's, PO Lopressor given, EKG completed. Right chest wall pressure dressing dry, right arm immobilizer. Orders
obtain for PRN Lopressor. Some nausea, sips of clears. Purwick placed, bed alarm audible
[2024-07-29] MEDS: APRESOLINE PO (20:27)
[2024-07-29] MEDS: TOPROL XL 50 MG PO (20:28)
[2024-07-29] MEDS: ANCEF 5 IV (23:06)
[2024-07-29] MEDS: LIPITOR 10 MG PO (23:06)
--- NOTE | 2024-07-29 23:52 | PTCARENOTE ---
Received patient at change of shift. Afib on the monitor, HR in the 120s. VSS on 3L. Pt oriented to self and place, Bed alarm on. R chest with pressure dressing and R arm immobilizer on. pm dose of hydralazine held, outside of parameters HR greater
than 110. Following pm dose of metoprolol, pt now A paced on the monitor HR in the 60s. No complaints from pt at this time, call pollock within reach.
[2024-07-30] VITALS (10 sets, daily range): BP systolic 113–152; BP diastolic 52–100; PULSE 60–61; O2SAT 94; BMI 36.1
[2024-07-30 05:33] LABS: Hemoglobin 9.9 g/dL (12.0-16.0); Mean Corpuscular Hgb 32.1 pg (27.0-31.0); Mean Corpuscular Volume 97.4 fL (81.0-99.0); Mean Platelet Volume 9.8 fL (7.4-10.4); Platelet Count 347 10^3/uL (130-400); Red Blood Cell Count 3.08 10^6/uL (4.20-5.40); Red Cell Dist. Width 13.8 % (11.5-14.5); White Blood Cell Count 11.8 10^3/uL (4.8-10.8)
[2024-07-30 05:56] LABS: Blood Urea Nitrogen 44 mg/dl (7-17); Calcium 8.9 mg/dl (8.4-10.2); Carbon Dioxide 28 mmol/L (22-30); Chloride 101 mmol/L (98-107); Estimated Creatinine Clearance 26 ml/min; Glucose 132 mg/dl (70-99); Magnesium 2.4 mg/dl (1.6-2.3); Potassium 4.7 mmol/L (3.5-5.1); Sodium 140 mmol/L (135-145); eGFR 26.93
--- NOTE | 2024-07-30 08:03 | W.PN.CD ---
Today's Communication / Plan
-
- Diuresis with IV lasix.
- May need AB for consolidation in lungs - as per primary team; Needs to be more aggressive with hardware in heart now.
Impression / Plan
-
88 yrs old woman with secondary to altered mental status, new onset of atrial fibrillation and acute kidney injury and was found to be not an acceptable candidate for anticoagulation given her high bleeding risk as well as cerebral amyloid
angiopathy. She is here with severe sinus bradycardia and acute heart failure.
Paroxysmal AFib
- Amio load to 200 daily + Metoprolol 50 bid restarted
- Bradycardia induced
- s/p dual chamber PPM on 07/29/24
- Converted to sinus and is A paced rhythm now.
- Not an anticoagulation candidate based on last admission with cerebral angiopathy concern
- Continue Metoprolol and amiodarone now without issues of severe bradycardia
- High risk for recurrent and worse bradycardia
- Pt and family agreeable to have pacemaker placed
New onset HFpEF
- No spironolactone given ANDREAS
- Co-pay for SGLT2-I mayte ARNI are too expensive => will not use
- resume IV Lasix - worsening pleural effusions.
- Acute heart failure with fluid retention - Likely related to severe bradycardia - now s/p PPM
- Echo 07/28/2024 with normal LVEF left sided valves OK
Abnormal CXR
- Radiology concerned about potential pneumonia
Sinus bradycardia
- s/p PPM better control of PAF with RVR and prevent severe bradycardia.
- May need AB for consolidation in lungs - as per primary team; Needs to be more aggressive with hardware in heart now.
ANDREAS
- ANDREAS noted with baseline CKD/
- cr went up 2.1 up from 1.6 on July 24 - today 1.8
- Severe fluid retention - restart Diuresis with IV lasix.
Dementia, progressive, significant
LBBB vs LVH with QRS widening,
Subjective: No CP, dyspnea better. Confused but denies any pain.
Physical Exam
Vital Signs/Labs
Vital Signs
Temp Pulse Resp BP Pulse Ox
97.3 F 60 16 152/100 95
07/30/24 04:44 07/30/24 06:00 07/30/24 04:44 07/30/24 04:42 07/30/24 04:44
07/29/24 07/30/24 07/31/24
06:59 06:59 06:59
Actual Weight 98 kg 98.5 kg
07/30/24 05:03
07/30/24 05:03
Magnesium 2.4 mg/dl (1.6-2.3) H 07/30/24 05:03
07/26/24
20:12
Ohl-G-Vmzvdrvvbxq Pept 4250
Physical Exam
Constitutional: No acute distress and Comfortable
EENT: Anicteric and Moist mucous membranes
Cardiovascular: Rhythm & rate is regular, Pedal edema present and JVD present
Respiratory: Respiratory effort normal, Crackles Present, Rhonchi Present and Other (low breath sounds in lower lobes. )
GI: Soft, Non tender and Normal bowel sounds
Neuro/Psych: Alert and Oriented
Other: Cardiac Device Site (pressure dressing removed. )
Data Reviewed
-
Date of Service: July 30, 2024
Medical Decision Making: Reviewed Test Results, Test Interpretation and Review of Case with other Provider
EKG: Tracing Personally Visualized and interpreted
Echo: Report Reviewed by me
X-Ray/CT/US/MRI/NUC/PET: Image Personally Visualized and interpreted
Labs: Labs Ordered by me
Old Records: Reviewed
[2024-07-30] MEDS: APRESOLINE 25 MG PO ×2 (09:18→20:18)
[2024-07-30] MEDS: MIRALAX 17 GRAMS PO (09:18)
[2024-07-30] MEDS: PACERONE 200 MG PO (09:18)
[2024-07-30] MEDS: LEXAPRO 5 MG PO (09:18)
[2024-07-30] MEDS: LOW STRENGTH ASPIRIN 81 MG PO (09:19)
[2024-07-30] MEDS: LASIX PO (09:19)
[2024-07-30] MEDS: TOPROL XL 50 MG PO ×2 (09:19→20:17)
[2024-07-30] MEDS: HEPARIN 5000 UNITS SC ×2 (09:19→20:16)
[2024-07-30] MEDS: DESENEX/MITRAZOL/ZEASORB 1 APPLIC TOPICAL ×2 (09:20→20:18)
[2024-07-30] MEDS: ANCEF 5 IV (09:21)
[2024-07-30] MEDS: LASIX 80 MG IV (09:21)
--- NOTE | 2024-07-30 12:23 | CM ---
Chart reviewed. Patient is independent of ADLS, lives with her in a split level, has grab bar and shower chair, 0 DME. Patient was recently hospitalized at and was tranferred to [facility] for SNF. PT/OT evaluation recommending SNF. Patient
and are agreeable. Patient would like to go back to [facility]. Referral sent and accepted based on bed availability. Patient will need insurance authorization. Plan is for the patient to go to SNF when medically stable. CM to follow
[2024-07-30] MEDS: TYLENOL 650 MG PO (14:51)
--- NOTE | 2024-07-30 15:25 | W.PN.HOSP.TC ---
Today's Communication/Plan
-
Assessment / Plan
Assessment / Plan
Gen-awake, alert, NAD
HEENT-NC, AT, anicteric, nasal cannula in place
Neck-supple
CV-paced rhythm at 60
Lungs-clear B/L
Abd-soft, NT, ND
Ext-no edema
Musculoskeletal-no cyanosis, clubbing
Skin-warm and dry, right chest pacemaker site dressing with mild strikethrough
Neuro-grossly non-focal
Psych-calm, cooperative
Acute on chronic hypoxic respiratory failure
-Improving
- likely due to acute pulmonary edema due to acute heart failure exacerbation.
- Had been up to 4 L via nasal cannula at time of admission, now back down to baseline 2 L nasal cannula which she was discharged on from recent admission
-Chest x-ray shows small bilateral pleural effusions, pulmonary edema, bilateral lower lobe infiltrates, suspect atelectasis. Clinically doubt pneumonia especially considering recent course of antibiotics
Acute heart failure preserved EF exacerbation
-Transitioned to Lasix 80 mg p.o. daily
-Suspect trigger was bradycardia in the setting of amiodarone loading
- Restarted beta-ann with metoprolol succinate 50 mg twice daily and now that pacemaker has been placed
-Cardiology following
A-fib with RVR:
- Heart rate has been difficult to control recently, developed rapid heart rate/8 and so restarted amiodarone 200 mg daily
- Pacemaker placed 07/29, heart rate now much better controlled
- Restarted beta-ann with metoprolol succinate 50 mg twice daily
- No anticoagulation, deemed to be high risk due to advanced age and bleeding risk with cerebral amyloid angiopathy.
- Appreciate guidance from cardiology
ANDREAS
-Suspect cardiorenal
- Renal bladder ultrasound shows mild to moderate chronic bilateral renal disease, no evidence of hydronephrosis, small parapelvic cyst in the left kidney
-Suspect baseline creatinine is around 1.5, however it was 2.2 at time of admission, improved to 1.8 today
- Will monitor for continued improvement with diuresis
Asymptomatic leukocytosis
-afebrile, suspect leukemoid reaction.
- Monitor for resolution with control of heart rate
DM2 without hyperglycemia -not on diabetes meds at home. Hemoglobin A1c 6.3% in June 2024.
Essential hypertension -stable.
Chronic normocytic anemia - hemoglobin near baseline.
Dementia -unknown type, suspect vascular
RANJAN
Urinary incontinence
History of endometrial cancer -2017.
Hyperlipidemia -atorvastatin.
History of melanoma
Obesity due to excess calories
DNR
Anticipated Discharge: 24 - 48 hours
Subjective/Interval History
-
Date of Service: July 30, 2024
Patient was seen and examined at bedside this morning. She is status post pacemaker placement yesterday and tolerated procedure well. She is now pacing at 60 bpm. Comfortable and eating breakfast.
Objective Data
-
Labs:
Laboratory Results
07/30/24
05:03
WBC 11.8 H
Hgb 9.9 L
Hct 30.0 L
Plt Count 347
Sodium 140
Potassium 4.7
Chloride 101
Carbon Dioxide 28
BUN 44 H
Creatinine 1.8 H
Glucose 132 H
Calcium 8.9
Vital Signs:
Vital Signs
Temp Pulse Resp BP Pulse Ox
97.7 F 61 20 126/52 97
07/30/24 14:56 07/30/24 14:55 07/30/24 14:56 07/30/24 14:55 07/30/24 15:22
I&O
07/29/24 07/30/24 07/31/24
06:59 06:59 06:59
Intake Total 720 / 720 240 / 240
Output Total 700 / 700 1000 / 1000 400 / 400
Balance 20 / 20 -1000 / -1000 -160 / -160
Review of Systems
-
Unable to obtain full review of systems at this time due to: Dementia
History Source: Patient
All other systems: Reviewed and negative
Physical Exam
-
General: No Apparent Distress
--- NOTE | 2024-07-30 19:28 | PTCARENOTE ---
Pt is very pleasant, oriented to herself and place only. Pt stutters at times, left arm tremor present. Pt weak and deconditioned, she makes no attempts to get up or move, bed and chair alarms on. Pt turned every 2 hours and OOB with 2 assists to
chair and into bathroom. Pt is incontinent especially when standing, collected urine from purewick is cloudy, otherwise her urine seems clear and has no odor. Right chest pacemaker incision with dry and intact dressing, no hematoma or bleeding. Pt
has a poor appetite and needs complete nursing care for all ADL's. Telemetry shows atrial paced rhythm at rate of 60.
[2024-07-30] MEDS: LIPITOR 10 MG PO (20:20)
--- NOTE | 2024-07-30 23:16 | PTCARENOTE ---
Assumed care of the patient @ 1900 Pt is oriented to self and place appears comfortable in bed. A paced on the monitor VSS. Q 2 turns performed to perfect skin breakdown. Bed alarm in use. Call pollock within reach.
[2024-07-31 03:10] VITALS: BMI 35.8
[2024-07-31 03:16] VITALS: BP 141/61
[2024-07-31 04:34] VITALS: BMI 35.8
[2024-07-31] MEDS: TYLENOL 650 MG PO (04:45)
--- NOTE | 2024-07-31 06:36 | PTCARENOTE ---
Pt's sats 97% on 2 LPM NC lungs cta weaned o2 off. Spot check pulse ox 87% Pt was placed back on 2 LPM NC.
[2024-07-31 07:41] VITALS: BP 139/51
--- NOTE | 2024-07-31 08:09 | W.PN.CD ---
Today's Communication / Plan
-
Cont IV diuresis
Consider Abx for lung consolidations
Impression / Plan
-
88 yrs old woman with secondary to altered mental status, new onset of atrial fibrillation and acute kidney injury and was found to be not an acceptable candidate for anticoagulation given her high bleeding risk as well as cerebral amyloid
angiopathy. She is here with severe sinus bradycardia and acute heart failure.
Paroxysmal AFib
- Amio load to 200 daily + Metoprolol 50 bid restarted
- Bradycardia induced
- s/p dual chamber PPM on 07/29/24
- Converted to sinus and is A paced rhythm now.
- Not an anticoagulation candidate based on last admission with cerebral angiopathy concern
- Continue Metoprolol and amiodarone now without issues of severe bradycardia
New onset HFpEF
- No spironolactone given ANDREAS
- Co-pay for SGLT2-I mayte ARNI are too expensive => will not use
- IV Lasix continue
- Acute heart failure with fluid retention - Likely related to severe bradycardia - now s/p PPM
- Echo 07/28/2024 with normal LVEF left sided valves OK
Abnormal CXR
- Radiology concerned about potential pneumonia
Sinus bradycardia
- s/p PPM better control of PAF with RVR and prevent severe bradycardia.
- Consider Abx given lung consolidations - as per primary team; Needs to be more aggressive with hardware in heart now.
ANDREAS
- ANDREAS noted with baseline CKD/
- cr went up 2.1 up from 1.6 on July 24 - today 1.8
- Severe fluid retention - restart Diuresis with IV lasix.
Dementia, progressive, significant
LBBB vs LVH with QRS widening,
Subjective: Pleasently confused
Physical Exam
Vital Signs/Labs
Vital Signs
Temp Pulse Resp BP Pulse Ox
97.6 F 61 20 141/61 91
07/31/24 07:41 07/31/24 04:00 07/31/24 07:41 07/31/24 03:16 07/31/24 07:41
07/30/24 07/31/24 08/01/24
06:59 06:59 06:59
Actual Weight 217 lb 2.485 oz 215 lb 6.266 oz
07/30/24 05:03
07/30/24 05:03
Magnesium 2.4 mg/dl (1.6-2.3) H 07/30/24 05:03
07/26/24
20:12
Lal-U-Svyoznzzqum Pept 4250
Physical Exam
Constitutional: No acute distress and Confusion
EENT: Anicteric
Cardiovascular: Rhythm & rate is regular and Pedal edema present
Respiratory: Respiratory effort normal
GI: Soft
Neuro/Psych: Other (oriented to person only )
Data Reviewed
-
Date of Service: July 31, 2024
Medical Decision Making: Reviewed Test Results
EKG: Tracing Personally Visualized and interpreted (a paced)
Echo: Report Reviewed by me
Labs: Labs Reviewed by me
[2024-07-31] MEDS: PACERONE 200 MG PO (08:16)
[2024-07-31] MEDS: LEXAPRO 5 MG PO (08:16)
[2024-07-31] MEDS: APRESOLINE 25 MG PO ×2 (08:16→20:14)
[2024-07-31] MEDS: TOPROL XL 50 MG PO ×2 (08:16→20:14)
[2024-07-31] MEDS: LASIX 80 MG IV (08:17)
[2024-07-31] MEDS: LOW STRENGTH ASPIRIN 81 MG PO (08:17)
[2024-07-31] MEDS: HEPARIN 5000 UNITS SC ×2 (08:19→20:13)
[2024-07-31] MEDS: DESENEX/MITRAZOL/ZEASORB 1 APPLIC TOPICAL ×2 (08:21→20:16)
[2024-07-31 10:48] VITALS: BP 113/41
--- NOTE | 2024-07-31 12:00 | CM ---
Chart reviewed. Patient is independent of ADLS, lives with her in a split level, has grab bar and shower chair, 0 DME. Patient was recently hospitalized at and was tranferred to [facility] for SNF. PT/OT evaluation recommending SNF. Patient
and are agreeable. Patient would like to go back to [facility]. Referral sent and accepted based on bed availability. Patient will need insurance authorization. Plan is for the patient to go to SNF when medically stable. CM to follow
--- NOTE | 2024-07-31 12:03 | W.PN.HOSP.TC ---
Today's Communication/Plan
-
Assessment / Plan
Assessment / Plan
Gen-awake, alert, NAD
HEENT-NC, AT, anicteric, nasal cannula in place
Neck-supple
CV-paced rhythm at 60
Lungs-clear B/L
Abd-soft, NT, ND
Ext-no edema
Musculoskeletal-no cyanosis, clubbing
Skin-warm and dry, right chest pacemaker site dressing with mild strikethrough
Neuro-grossly non-focal
Psych-calm, cooperative
Acute on chronic hypoxic respiratory failure
-Improving
- likely due to acute pulmonary edema due to acute heart failure exacerbation.
- Had been up to 4 L via nasal cannula at time of admission, now back down to baseline 2 L nasal cannula which she was discharged on from recent admission
-Titrate to room air if able
-Chest x-ray shows small bilateral pleural effusions, pulmonary edema, bilateral lower lobe infiltrates, suspect atelectasis.
-Clinically doubt pneumonia but will treat empirically with Unasyn considering she now has pacemaker in place and recently had a questionable pneumonia during her last hospitalization
Acute heart failure preserved EF exacerbation
-Transitioned to Lasix 80 mg IV daily, approaching euvolemia, likely transition back to p.o. Lasix in the next 24 to 48 hours
-Suspect trigger was bradycardia in the setting of amiodarone loading
- Restarted beta-ann with metoprolol succinate 50 mg twice daily now that pacemaker has been placed
-Cardiology following
A-fib with RVR:
- Heart rate had been difficult to control recently, developed rapid heart rate 07/29 and so restarted amiodarone 200 mg daily
- Pacemaker placed 07/29, heart rate now controlled
- Restarted beta-ann with metoprolol succinate 50 mg twice daily, continuing amiodarone 200 mg p.o. daily
- No anticoagulation, deemed to be high risk due to advanced age and bleeding risk with cerebral amyloid angiopathy.
- Appreciate guidance from cardiology
ANDREAS
-Suspect cardiorenal
- Renal bladder ultrasound shows mild to moderate chronic bilateral renal disease, no evidence of hydronephrosis, small parapelvic cyst in the left kidney
-Suspect baseline creatinine is around 1.5, however it was 2.2 at time of admission
- Will monitor for continued improvement with diuresis
Asymptomatic leukocytosis
-afebrile, suspect leukemoid reaction.
- Monitor for resolution with control of heart rate
DM2 without hyperglycemia -not on diabetes meds at home. Hemoglobin A1c 6.3% in June 2024.
Essential hypertension -stable.
Chronic normocytic anemia - hemoglobin near baseline.
Dementia -unknown type, suspect vascular
DNR
Anticipate discharge in next 24 to 48 hours once euvolemic and renal function is stabilized
Anticipated Discharge: 24 - 48 hours
Subjective/Interval History
-
Date of Service: July 31, 2024
Patient was seen and examined at bedside this morning. Comfortable and eating breakfast. Saturating appropriately on 2 L nasal cannula, being titrated down to 1 and potentially to room air.
Objective Data
-
Vital Signs:
Vital Signs
Temp Pulse Resp BP Pulse Ox
97.8 F 61 18 141/61 93
07/31/24 10:48 07/31/24 04:00 07/31/24 10:48 07/31/24 03:16 07/31/24 10:48
I&O
07/30/24 07/31/24 08/01/24
06:59 06:59 06:59
Intake Total 480 / 480
Output Total 1000 / 1000 400 / 400 700 / 700
Balance -1000 / -1000 80 / 80 -700 / -700
Review of Systems
-
Unable to obtain full review of systems at this time due to: Dementia
History Source: Patient
All other systems: Reviewed and negative
Physical Exam
-
General: No Apparent Distress
[2024-07-31 15:08] VITALS: BP 125/50
[2024-07-31] MEDS: UNASYN IV (15:23)
[2024-07-31] MEDS: MIRALAX PO (15:28)
--- NOTE | 2024-07-31 17:14 | PTCARENOTE ---
Pt received this am with no c/o of any pain or sob. O2 decreased to 1LNC then off to room air at 1200, sat 91 - 94%. Assisted oob to the chair with the walker and 2 assists. Pt tolerated oob for most of the day.
[2024-07-31 18:46] VITALS: BP 126/48
[2024-07-31 19:22] LABS: Blood Urea Nitrogen 43 mg/dl (7-17); Calcium 8.5 mg/dl (8.4-10.2); Carbon Dioxide 33 mmol/L (22-30); Chloride 98 mmol/L (98-107); Estimated Creatinine Clearance 23 ml/min; Glucose 144 mg/dl (70-99); Potassium 4.1 mmol/L (3.5-5.1); Sodium 140 mmol/L (135-145); eGFR 23.73
[2024-07-31] MEDS: LIPITOR 10 MG PO (20:14)
[2024-07-31 22:12] VITALS: BP 131/44
--- NOTE | 2024-07-31 23:06 | PTCARENOTE ---
Assumed care of the pt @ 1900. Pt is AAOx2 A paced on the monitor VSS takes pills whole with applesauce purewick in place draining yellow urine. Hourly rounding done bed alarm in use call pollock within reach.
[2024-08-01] VITALS (12 sets, daily range): BP systolic 110–156; BP diastolic 47–117; PULSE 92–99; O2SAT 95; BMI 35.5
[2024-08-01] MEDS: UNASYN IV (01:23)
--- NOTE | 2024-08-01 03:15 | PTCARENOTE ---
Pt HR back in A Fib with occasional paced beats. HR 95-115 BP 122/76 RR 16 Sat 94% on 2 lpm NC NAD.
[2024-08-01 04:46] LABS: % Basophils 0.4 % (0-2); % Eosinophils 3.2 % (0-6); % Immature Granulocytes 0.4 % (0-0.5); % Lymphocytes 14.8 % (20.5-51.1); % Monocytes 8.3 % (1.7-9.3); % Neutrophils 72.9 % (42.2-75.2); Absolute Eosinophils 0.3 10^3/uL (0-0.7); Absolute Lymphocytes 1.5 10^3/uL (1.2-3.4); Absolute Monocytes 0.8 10^3/uL (0.1-0.6); Absolute Neutrophils 7.2 10^3/uL (1.4-6.5); Hematocrit 30.1 % (37.0-47.0); Hemoglobin 9.8 g/dL (12.0-16.0); Mean Corp Hgb Conc. 32.6 g/dL (33.0-37.0); Mean Corpuscular Hgb 31.3 pg (27.0-31.0); Mean Corpuscular Volume 96.2 fL (81.0-99.0); Mean Platelet Volume 9.9 fL (7.4-10.4); Nucleated Red Blood Cells % 0 %; Platelet Count 287 10^3/uL (130-400); Red Blood Cell Count 3.13 10^6/uL (4.20-5.40); Red Cell Dist. Width 13.7 % (11.5-14.5); White Blood Cell Count 9.9 10^3/uL (4.8-10.8)
[2024-08-01 05:09] LABS: Blood Urea Nitrogen 38 mg/dl (7-17); Calcium 8.4 mg/dl (8.4-10.2); Carbon Dioxide 32 mmol/L (22-30); Chloride 99 mmol/L (98-107); Estimated Creatinine Clearance 23 ml/min; Glucose 141 mg/dl (70-99); Potassium 4.1 mmol/L (3.5-5.1); Sodium 138 mmol/L (135-145); eGFR 23.73
[2024-08-01] MEDS: LOW STRENGTH ASPIRIN 81 MG PO (08:17)
[2024-08-01] MEDS: LEXAPRO 5 MG PO (08:17)
[2024-08-01] MEDS: MIRALAX 17 GRAMS PO (08:17)
[2024-08-01] MEDS: TOPROL XL 50 MG PO (08:17)
[2024-08-01] MEDS: APRESOLINE 25 MG PO ×2 (08:17→20:41)
[2024-08-01] MEDS: PACERONE 200 MG PO (08:18)
[2024-08-01] MEDS: LASIX 80 MG IV (08:18)
[2024-08-01] MEDS: HEPARIN 5000 UNITS SC ×2 (08:19→20:41)
[2024-08-01] MEDS: DESENEX/MITRAZOL/ZEASORB 1 APPLIC TOPICAL ×2 (08:19→20:41)
--- NOTE | 2024-08-01 11:46 | W.PN.CD ---
Today's Communication / Plan
-
increase metoprolol to 75mg BID
continue Amiodarone 200m
ICS
ok to go to SNF
Impression / Plan
-
88 yrs old woman with secondary to altered mental status, new onset of atrial fibrillation and acute kidney injury and was found to be not an acceptable candidate for anticoagulation given her high bleeding risk as well as cerebral amyloid
angiopathy. She is here with severe sinus bradycardia and acute heart failure.
Paroxysmal AFib
- Amio load to 200 daily + Metoprolol 50 bid restarted---will increase 75mg BID
- Bradycardia induced
- s/p dual chamber PPM on 07/29/24
- Converted to sinus and is A paced rhythm now.
- Not an anticoagulation candidate based on last admission with cerebral angiopathy concern
New onset HFpEF
- No spironolactone given ANDREAS
- Co-pay for SGLT2-I mayte ARNI are too expensive => will not use
- IV Lasix transition back to 80mg po daily.
-repeat renal panel in 5-7 days
- Acute heart failure with fluid retention - Likely related to severe bradycardia - now s/p PPM
- Echo 07/28/2024 with normal LVEF left sided valves OK
Hypoxia: stillwith requirement, will need on discharge to SNF
-continue po lasix
-Abx
-Likely a degree of atelectasis-->encourrage ICS.
Abnormal CXR
- Radiology concerned about potential pneumonia
Sinus bradycardia
- s/p PPM better control of PAF with RVR and prevent severe bradycardia.
- Consider Abx given lung consolidations - as per primary team; Needs to be more aggressive with hardware in heart now.
ANDREAS
- ANDREAS noted with baseline CKD/
- cr went up 2.1 up from 1.6 on July 24 - today 1.8
- Severe fluid retention - restart Diuresis with IV lasix.
Dementia, progressive, significant
LBBB vs LVH with QRS widening,
Subjective: calm without complaints. Nurse at bedside still requiring oxygen.
Physical Exam
Vital Signs/Labs
Vital Signs
Temp Pulse Resp BP Pulse Ox
97.5 F 101 20 118/57 94
08/01/24 11:01 08/01/24 08:18 08/01/24 11:01 08/01/24 08:18 08/01/24 11:01
07/31/24 08/01/24 08/02/24
06:59 06:59 06:59
Actual Weight 97.7 kg
08/01/24 03:41
08/01/24 03:41
Magnesium 2.4 mg/dl (1.6-2.3) H 07/30/24 05:03
07/26/24
20:12
Oft-G-Izcacpkrzyn Pept 4250
Physical Exam
Constitutional: No acute distress
Cardiovascular: Pedal edema is absent, Rhythm/rate is irregular, Systolic murmur present and Diastolic murmur present
Respiratory: Respiratory effort normal, Wheeze Absent, Rhonchi Absent and Crackles Present (rll rales)
Neuro/Psych: AO x 3
Data Reviewed
-
Date of Service: August 01, 2024
Medical Decision Making: Review of Case with other Provider (ok for snf on increased metoprolol and po lasix)
EKG: Other (tele paced to afib)
--- NOTE | 2024-08-01 13:29 | W.PN.HOSP.TC ---
Today's Communication/Plan
-
Assessment / Plan
Assessment / Plan
Gen-awake, alert, NAD
HEENT-NC, AT, anicteric, nasal cannula in place
Neck-supple
CV-irregular rhythm, heart rate 110
Lungs-clear B/L
Abd-soft, NT, ND
Ext-no edema
Musculoskeletal-no cyanosis, clubbing
Skin-warm and dry, right chest pacemaker site dressing with mild strikethrough
Neuro-grossly non-focal
Psych-calm, cooperative
Acute on chronic hypoxic respiratory failure
-Improving
- likely due to acute pulmonary edema due to acute heart failure exacerbation.
- Had been up to 4 L via nasal cannula at time of admission, now back down to baseline 2 L nasal cannula which she was discharged on from recent admission
-Titrate to room air if able
-Chest x-ray shows small bilateral pleural effusions, pulmonary edema, bilateral lower lobe infiltrates, suspect atelectasis.
-Clinically doubt pneumonia but will treat empirically with antibiotics considering she now has pacemaker in place and recently had a questionable pneumonia during her last hospitalization
Acute heart failure preserved EF exacerbation
-Transitioned back to p.o. Lasix 80 mg daily
-Suspect trigger was bradycardia in the setting of amiodarone loading
- Restarted beta-ann with metoprolol succinate now that pacemaker has been placed, increased dose to 75 mg twice daily
- Appreciate guidance from cardiology
A-fib with RVR:
- Heart rate had been difficult to control recently, developed rapid heart rate 07/29 and so restarted amiodarone 200 mg daily
- Pacemaker placed 07/29, heart rate now better controlled
- Increased metoprolol succinate to 75 mg twice daily, continuing amiodarone 200 mg p.o. daily
- No anticoagulation, deemed to be high risk due to advanced age and bleeding risk with cerebral amyloid angiopathy.
- Appreciate guidance from cardiology
ANDREAS
-Suspect cardiorenal
- Renal bladder ultrasound shows mild to moderate chronic bilateral renal disease, no evidence of hydronephrosis, small parapelvic cyst in the left kidney
-Suspect baseline creatinine is around 1.5, however it was 2.2 at time of admission
- Improving, will monitor for continued improvement with diuresis
Asymptomatic leukocytosis
-afebrile, suspect leukemoid reaction.
- Treating empirically with Augmentin for possible pneumonia
DM2 without hyperglycemia -not on diabetes meds at home. Hemoglobin A1c 6.3% in June 2024.
Essential hypertension -stable.
Chronic normocytic anemia - hemoglobin near baseline.
Dementia -unknown type, suspect vascular
DNR
Medically stable for discharge to SNF when bed available
Anticipated Discharge: 24 - 48 hours
Subjective/Interval History
-
Date of Service: August 01, 2024
Patient was seen and examined at bedside this morning. No complaints. Breathing comfortably. Heart rate around 110 although had just been ambulating. Increasing metoprolol succinate to 75 mg twice daily.
Objective Data
-
Labs:
Laboratory Results
08/01/24
03:41
WBC 9.9
Hgb 9.8 L
Hct 30.1 L
Plt Count 287
Sodium 138
Potassium 4.1
Chloride 99
Carbon Dioxide 32 H
BUN 38 H
Creatinine 2.0 H
Glucose 141 H
Calcium 8.4
Vital Signs:
Vital Signs
Temp Pulse Resp BP Pulse Ox
97.5 F 101 20 118/57 94
08/01/24 11:01 08/01/24 08:18 08/01/24 11:01 08/01/24 08:18 08/01/24 11:01
I&O
07/31/24 08/01/24 08/02/24
06:59 06:59 06:59
Intake Total 480 / 480 380 / 380
Output Total 400 / 400 1000 / 1000 550 / 550
Balance 80 / 80 -1000 / -1000 -170 / -170
Review of Systems
-
Unable to obtain full review of systems at this time due to: Dementia
History Source: Patient
All other systems: Reviewed and negative
Physical Exam
-
General: No Apparent Distress
--- NOTE | 2024-08-01 13:49 | CM ---
Chart reviewed. Patient is independent of ADLS, lives with her in a split level, has grab bar and shower chair, 0 DME. Patient was recently hospitalized at and was tranferred to [facility] for SNF. PT/OT evaluation recommending SNF. Patient
and are agreeable. Patient would like to go back to [facility]. Referral sent and accepted based. Patient will need insurance authorization. [facility] will have a bed on Sunday. Plan is for the patient to go to [facility] on Sunday. Patient will need
Insurance Authorization. CM to follow
[2024-08-01] MEDS: AUGMENTIN 500 MG/125 MG 1 TABLET PO (20:40)
[2024-08-01] MEDS: TOPROL XL 75 MG PO (20:41)
--- NOTE | 2024-08-01 21:50 | PTCARENOTE ---
Patient received at change of shift resting in the bed. Alert to self only, bed alarm armed. Oxygen saturation on 2L NC 95-98%. Sinus rhythm on telemetry. Right anterior chest wall PPM site C/D/I. Patient denies pain, only complaint is feeling cold.
Plan of care discussed. Call pollock within reach. Care ongoing.
[2024-08-01] MEDS: LIPITOR 10 MG PO (22:23)
[2024-08-02 03:17] VITALS: BP 141/49; BMI 35.7
[2024-08-02 07:24] VITALS: BP 117/42
[2024-08-02] MEDS: APRESOLINE 25 MG PO ×2 (08:50→19:19)
[2024-08-02] MEDS: AUGMENTIN 500 MG/125 MG 1 TABLET PO ×2 (08:51→19:20)
[2024-08-02] MEDS: HEPARIN 5000 UNITS SC ×2 (08:51→19:20)
[2024-08-02] MEDS: LASIX 80 MG PO (08:52)
[2024-08-02] MEDS: LEXAPRO 5 MG PO (08:52)
[2024-08-02] MEDS: TOPROL XL 75 MG PO ×2 (08:52→19:21)
[2024-08-02] MEDS: LOW STRENGTH ASPIRIN 81 MG PO (08:52)
[2024-08-02] MEDS: DESENEX/MITRAZOL/ZEASORB 1 APPLIC TOPICAL ×2 (08:53→19:21)
[2024-08-02] MEDS: PACERONE 200 MG PO (08:53)
[2024-08-02] MEDS: FLUSH (NSS) 1 FLUSH IV (08:54)
[2024-08-02] MEDS: MIRALAX 17 GRAMS PO (08:54)
--- NOTE | 2024-08-02 10:48 | PTCARENOTE ---
Received patient this morning resting in bed, bed alarm in place. Patient oriented to self only, frequently asking where she is and why. Aquacel dressing intact right upper chest with scant serosanguineous drainage. now at the bedside
visiting.
[2024-08-02 11:16] VITALS: BP 130/42
--- NOTE | 2024-08-02 15:03 | W.PN.HOSP.TC ---
Today's Communication/Plan
-
Assessment / Plan
Assessment / Plan
Gen-awake, alert, NAD
HEENT-NC, AT, anicteric, nasal cannula in place
Neck-supple
CV-regular rhythm, heart rate 60
Lungs-clear B/L
Abd-soft, NT, ND
Ext-no edema
Musculoskeletal-no cyanosis, clubbing
Skin-warm and dry, right chest pacemaker site dressing with mild strikethrough
Neuro-grossly non-focal, confused
Psych-calm, cooperative
Acute on chronic hypoxic respiratory failure
-Improving
- likely due to acute pulmonary edema due to acute heart failure exacerbation.
- Had been up to 4 L via nasal cannula at time of admission, now back down to baseline 2 L nasal cannula which she was discharged on from recent admission
-Titrate to room air if able
-Chest x-ray shows small bilateral pleural effusions, pulmonary edema, bilateral lower lobe infiltrates, suspect atelectasis.
-Clinically doubt pneumonia but will treat empirically with antibiotics considering she now has pacemaker in place and recently had a questionable pneumonia during her last hospitalization
Acute heart failure preserved EF exacerbation
-Transitioned back to p.o. Lasix 80 mg daily
-Suspect trigger was bradycardia in the setting of amiodarone loading
- Restarted beta-ann with metoprolol succinate now that pacemaker has been placed, increased dose to 75 mg twice daily
- Appreciate guidance from cardiology
A-fib with RVR:
- Heart rate had been difficult to control recently, developed rapid heart rate 07/29 and so restarted amiodarone 200 mg daily
- Pacemaker placed 07/29, heart rate now better controlled
- Increased metoprolol succinate to 75 mg twice daily, continuing amiodarone 200 mg p.o. daily
- No anticoagulation, deemed to be high risk due to advanced age and bleeding risk with cerebral amyloid angiopathy.
- Appreciate guidance from cardiology
ANDREAS
-Suspect cardiorenal
- Renal bladder ultrasound shows mild to moderate chronic bilateral renal disease, no evidence of hydronephrosis, small parapelvic cyst in the left kidney
-Suspect baseline creatinine is around 1.5, however it was 2.2 at time of admission
- Improving, will monitor for continued improvement with diuresis
Asymptomatic leukocytosis
-afebrile, suspect leukemoid reaction.
- Treating empirically with Augmentin for possible pneumonia
DM2 without hyperglycemia -not on diabetes meds at home. Hemoglobin A1c 6.3% in June 2024.
Essential hypertension -stable.
Chronic normocytic anemia - hemoglobin near baseline.
Dementia -unknown type, suspect vascular
DNR
Medically stable for discharge to SNF when bed available
Anticipated Discharge: 24 - 48 hours
Subjective/Interval History
-
Date of Service: August 02, 2024
Patient was seen and examined at bedside this morning. Comfortable, no complaints. Eating breakfast. Heart rate is well-controlled and paced at 60 bpm. Awaiting SNF placement.
Objective Data
-
Vital Signs:
Vital Signs
Temp Pulse Resp BP Pulse Ox
98.3 F 61 18 130/42 95
08/02/24 11:23 08/02/24 12:00 08/02/24 11:23 08/02/24 11:16 08/02/24 11:23
I&O
08/01/24 08/02/24 08/03/24
06:59 06:59 06:59
Intake Total 680 / 680 420 / 420
Output Total 1000 / 1000 900 / 900
Balance -1000 / -1000 -220 / -220 420 / 420
Review of Systems
-
Unable to obtain full review of systems at this time due to: Dementia
History Source: Patient
All other systems: Reviewed and negative
Physical Exam
-
General: No Apparent Distress
[2024-08-02 15:07] VITALS: BP 131/44
[2024-08-02 18:55] VITALS: BP 122/46
[2024-08-02] MEDS: LIPITOR 10 MG PO (21:32)
[2024-08-02 22:26] VITALS: BP 135/49
--- NOTE | 2024-08-02 23:28 | PTCARENOTE ---
Pt. rec'd sitting OOB in chair at beginning of shift, heavy assist x 2 with RW to get back into bed. A-paced on the monitor, right CW antibacterial dressing intact with scant amt. of old drainage present, no complaints of pain. Pt. intermittently
confused/forgetful but pleasant. Heavily incontinent of urine, frequent incontinence care & q 2 turns maintained. Pt. currently sleeping.
[2024-08-03] VITALS (7 sets, daily range): BP systolic 105–155; BP diastolic 43–73; BMI 35.4
[2024-08-03] MEDS: APRESOLINE 25 MG PO ×2 (09:44→20:17)
[2024-08-03] MEDS: DESENEX/MITRAZOL/ZEASORB 1 APPLIC TOPICAL ×2 (09:44→20:18)
[2024-08-03] MEDS: AUGMENTIN 500 MG/125 MG 1 TABLET PO ×2 (09:44→20:17)
[2024-08-03] MEDS: HEPARIN 5000 UNITS SC ×2 (09:45→20:18)
[2024-08-03] MEDS: LOW STRENGTH ASPIRIN 81 MG PO (09:46)
[2024-08-03] MEDS: MIRALAX 17 GRAMS PO (09:46)
[2024-08-03] MEDS: LASIX 80 MG PO (09:46)
[2024-08-03] MEDS: LEXAPRO 5 MG PO (09:46)
[2024-08-03] MEDS: PACERONE 200 MG PO (09:46)
[2024-08-03] MEDS: TOPROL XL 75 MG PO ×2 (09:47→20:17)
[2024-08-03] MEDS: FLUSH (NSS) 1 FLUSH IV (09:48)
--- NOTE | 2024-08-03 10:32 | PTCARENOTE ---
Patient resting in bed this morning eating her breakfast now. Aquacel dressing has a scant amount of drainage. Patient in AF on the monitor with HR 90's-110 with occasional A pacing. Morning meds given, will continue to monitor. Bed alarm in place,
call pollock in reach.
--- NOTE | 2024-08-03 15:35 | W.PN.HOSP.TC ---
Today's Communication/Plan
-
Assessment / Plan
Assessment / Plan
Gen-awake, alert, NAD
HEENT-NC, AT, anicteric, nasal cannula in place
Neck-supple
CV-regular rhythm, heart rate 60
Lungs-clear B/L
Abd-soft, NT, ND
Ext-no edema
Musculoskeletal-no cyanosis, clubbing
Skin-warm and dry, right chest pacemaker site dressing with mild strikethrough
Neuro-grossly non-focal, confused
Psych-calm, cooperative
Acute on chronic hypoxic respiratory failure
-Improving
- likely due to acute pulmonary edema due to acute heart failure exacerbation.
- Had been up to 4 L via nasal cannula at time of admission, now back down to baseline 2 L nasal cannula which she was discharged on from recent admission
-Titrate to room air if able
-Clinically doubt pneumonia but will treat empirically with antibiotics considering she now has pacemaker in place and recently had a questionable pneumonia during her last hospitalization
- Medically stable for discharge to SNF, bed available Friday 08/04
Acute heart failure preserved EF exacerbation
-Transitioned back to p.o. Lasix 80 mg daily
-Suspect trigger was bradycardia in the setting of amiodarone loading
- Restarted beta-ann with metoprolol succinate now that pacemaker has been placed, increased dose to 75 mg twice daily
- Appreciate guidance from cardiology
A-fib with RVR:
- Heart rate had been difficult to control recently, developed rapid heart rate 07/29 and so restarted amiodarone 200 mg daily
- Pacemaker placed 07/29, heart rate now better controlled
- Increased metoprolol succinate to 75 mg twice daily, continuing amiodarone 200 mg p.o. daily
- No anticoagulation, deemed to be high risk due to advanced age and bleeding risk with cerebral amyloid angiopathy.
- Appreciate guidance from cardiology
ANDREAS
-Suspect cardiorenal
- Renal bladder ultrasound shows mild to moderate chronic bilateral renal disease, no evidence of hydronephrosis, small parapelvic cyst in the left kidney
-Suspect baseline creatinine is around 1.5, however it was 2.2 at time of admission
- Improving, will monitor for continued improvement with diuresis
Asymptomatic leukocytosis
-afebrile, suspect leukemoid reaction, resolving.
- Treating empirically with Augmentin for possible pneumonia
DM2 without hyperglycemia -not on diabetes meds at home. Hemoglobin A1c 6.3% in June 2024.
Essential hypertension -stable.
Chronic normocytic anemia - hemoglobin near baseline.
Dementia -unknown type, suspect vascular
DNR
Medically stable for discharge to SNF when bed available
Anticipated Discharge: Within 24 hours
Subjective/Interval History
-
Date of Service: August 03, 2024
Patient was seen and examined at bedside this morning. Feeling well, eating breakfast. Planning discharge to SNF tomorrow 08/04.
Objective Data
-
Vital Signs:
Vital Signs
Temp Pulse Resp BP Pulse Ox
98.2 F 60 20 105/73 95
08/03/24 11:41 08/03/24 12:00 08/03/24 11:41 08/03/24 11:41 08/03/24 11:41
I&O
08/02/24 08/03/24 08/04/24
06:59 06:59 06:59
Intake Total 680 / 680 420 / 420 360 / 360
Output Total 900 / 900 500 / 500
Balance -220 / -220 -80 / -80 360 / 360
Review of Systems
-
Unable to obtain full review of systems at this time due to: Dementia
History Source: Patient
All other systems: Reviewed and negative
Physical Exam
-
General: No Apparent Distress
[2024-08-03 17:36] LABS: % Basophils 0.3 % (0-2); % Eosinophils 3.8 % (0-6); % Immature Granulocytes 0.3 % (0-0.5); % Lymphocytes 13.5 % (20.5-51.1); % Monocytes 10.3 % (1.7-9.3); % Neutrophils 71.8 % (42.2-75.2); Absolute Eosinophils 0.3 10^3/uL (0-0.7); Absolute Lymphocytes 1.2 10^3/uL (1.2-3.4); Absolute Monocytes 0.9 10^3/uL (0.1-0.6); Absolute Neutrophils 6.2 10^3/uL (1.4-6.5); Hematocrit 32.1 % (37.0-47.0); Hemoglobin 10.4 g/dL (12.0-16.0); Mean Corp Hgb Conc. 32.4 g/dL (33.0-37.0); Mean Corpuscular Hgb 31.5 pg (27.0-31.0); Mean Corpuscular Volume 97.3 fL (81.0-99.0); Mean Platelet Volume 9.7 fL (7.4-10.4); Nucleated Red Blood Cells % 0 %; Platelet Count 263 10^3/uL (130-400); White Blood Cell Count 8.7 10^3/uL (4.8-10.8)
[2024-08-03 17:38] LABS: Blood Urea Nitrogen 34 mg/dl (7-17); Calcium 8.8 mg/dl (8.4-10.2); Carbon Dioxide 36 mmol/L (22-30); Chloride 99 mmol/L (98-107); Estimated Creatinine Clearance 25 ml/min; Glucose 109 mg/dl (70-99); Potassium 4.2 mmol/L (3.5-5.1); Sodium 138 mmol/L (135-145); eGFR 26.93
[2024-08-03] MEDS: LIPITOR 10 MG PO (22:51)
[2024-08-04] VITALS (8 sets, daily range): BP systolic 85–153; BP diastolic 45–65; PULSE 60–64; O2SAT 97; BMI 35.3
--- NOTE | 2024-08-04 08:48 | W.PN.HOSP.TC ---
Today's Communication/Plan
-
Discharge planning
Assessment / Plan
Assessment / Plan
Gen-awake, alert, NAD
HEENT-NC, AT, anicteric, nasal cannula in place
Neck-supple
CV-regular rhythm, heart rate 60
Lungs-clear B/L
Abd-soft, NT, ND
Ext-no edema
Musculoskeletal-no cyanosis, clubbing
Skin-warm and dry, right chest pacemaker site dressing with mild strikethrough
Neuro-grossly non-focal, confused
Psych-calm, cooperative
Acute on chronic hypoxic respiratory failure
-Improving
- likely due to acute pulmonary edema due to acute heart failure exacerbation.
- Had been up to 4 L via nasal cannula at time of admission, now back down to baseline 2 L nasal cannula which she was discharged on from recent admission
-Titrate to room air if able
-Clinically doubt pneumonia but will treat empirically with antibiotics considering she now has pacemaker in place and recently had a questionable pneumonia during her last hospitalization
- Medically stable for discharge to SNF, bed available Friday 08/04
Acute heart failure preserved EF exacerbation
-Transitioned back to p.o. Lasix 80 mg daily
-Suspect trigger was bradycardia in the setting of amiodarone loading
- Restarted beta-ann with metoprolol succinate now that pacemaker has been placed, increased dose to 75 mg twice daily
- Appreciate guidance from cardiology
A-fib with RVR:
- Heart rate had been difficult to control recently, developed rapid heart rate 07/29 and so restarted amiodarone 200 mg daily
- Pacemaker placed 07/29, heart rate now better controlled
- Increased metoprolol succinate to 75 mg twice daily, continuing amiodarone 200 mg p.o. daily
- No anticoagulation, deemed to be high risk due to advanced age and bleeding risk with cerebral amyloid angiopathy.
- Appreciate guidance from cardiology
ANDREAS on CKD 4 -Suspect cardiorenal
- Renal bladder ultrasound shows mild to moderate chronic bilateral renal disease, no evidence of hydronephrosis, small parapelvic cyst in the left kidney
-Suspect baseline creatinine is around 1.5, however it was 2.2 at time of admission
- Improving, will monitor for continued improvement with diuresis
Asymptomatic leukocytosis
-afebrile, suspect leukemoid reaction, resolving.
- Treating empirically with Augmentin for possible pneumonia, last day today
DM2 without hyperglycemia -not on diabetes meds at home. Hemoglobin A1c 6.3% in June 2024.
Essential hypertension -stable.
Chronic normocytic anemia - hemoglobin near baseline.
Dementia -unknown type, suspect vascular
DNR
Dispo - medically stable for discharge to SNF when bed available.
Anticipated Discharge: Today
Subjective/Interval History
-
Date of Service: August 04, 2024
Patient seen and examined. No complaints.
Objective Data
-
Vital Signs:
Vital Signs
Temp Pulse Resp BP Pulse Ox
97.4 F 60 18 139/47 94
08/04/24 07:43 08/04/24 08:00 08/04/24 07:43 08/04/24 07:46 08/04/24 07:43
I&O
08/03/24 08/04/24 08/05/24
06:59 06:59 06:59
Intake Total 420 / 420 960 / 960
Output Total 500 / 500 200 / 200
Balance -80 / -80 760 / 760
Review of Systems
-
History Source: Patient
All other systems: Reviewed and negative
[2024-08-04] MEDS: AUGMENTIN 500 MG/125 MG 1 TABLET PO (09:20)
[2024-08-04] MEDS: APRESOLINE 25 MG PO (09:20)
[2024-08-04] MEDS: HEPARIN 5000 UNITS SC (09:21)
[2024-08-04] MEDS: DESENEX/MITRAZOL/ZEASORB 1 APPLIC TOPICAL (09:21)
[2024-08-04] MEDS: LOW STRENGTH ASPIRIN 81 MG PO (09:22)
[2024-08-04] MEDS: LEXAPRO 5 MG PO (09:22)
[2024-08-04] MEDS: MIRALAX 17 GRAMS PO (09:22)
[2024-08-04] MEDS: LASIX 80 MG PO (09:22)
[2024-08-04] MEDS: TOPROL XL 75 MG PO (09:23)
[2024-08-04] MEDS: PACERONE 200 MG PO (09:23)
[2024-08-04] MEDS: FLUSH (NSS) 1 FLUSH IV (09:24)
--- NOTE | 2024-08-04 09:28 | PTCARENOTE ---
Received patient this morning resting in bed, appears comfortable, bed alarm in place. A paced on the monitor, plan for discharge back to [facility].
--- NOTE | 2024-08-04 14:00 | W.DS.TRANS ---
DC Summary - Projection Technician
-
Discharge Instructions:
Discharge Diagnosis/Procedures Acute on chronic respiratory failure with
hypoxia, new onset HFpEF, sinus bradycardia,
pacemaker implant 07/29
Diet Low Cholesterol
Activity With assistance,As tolerated
Driving Restrictions No driving
Bathing Restrictions OK to Shower
Instructions:
Stand-Alone Forms: DC Inst - Implanted Device
Changes to Home Medications: No
Discharge Medications:
DC Medications w/original date entered in [facility]
gvcptgui-toha-qzpu 8 mg-folic 400 mcg-K 50 mcg-lutein 300 mcg tablet (Centrum Silver Women) 1 ea PO DAILY Supplement 06/06/18
escitalopram oxalate 5 mg tablet 5 mg PO DAILY Mental Health/Anxiety 03/15/20
sennosides 8.6 mg tablet (senna) 2 tab PO BID PRN constipation 03/15/20
simvastatin 20 mg tablet 20 mg PO HS High cholesterol 03/15/20
aspirin 81 mg capsule 81 mg PO DAILY Blood Clot Prevention/Tx 05/12/23
amiodarone 200 mg tablet 200 mg PO DAILY #20 tabs 07/21/24
hydralazine 25 mg tablet 25 mg PO BID #0 tabs 07/21/24
polyethylene glycol 3350 17 gram oral powder packet 17 g PO DAILY #0 ea 07/21/24
acetaminophen 650 mg tablet 650 mg PO Q6H PRN temp 07/26/24
amoxicillin 500 mg-potassium clavulanate 125 mg tablet 1 tab PO Q12 #2 tabs 08/04/24
furosemide 80 mg tablet 80 mg PO DAILY #0 tabs 08/04/24
metoprolol succinate 50 mg tablet,extended release 24 hr 75 mg (1.5 x 50 mg) PO BID #0 tabs 08/04/24
Home Medication Changes
Pending Results: No
--- NOTE | 2024-08-04 17:02 | CM ---
pt cleared for transfer to [facility], bed is confirmed- given auth # [id number]- 08/04-08/08- skilled level I. ambul thru acute care set up to P/U at 6 pm (auth [id number]). pt and Daughter Shalini both aware and are agreeable to this plan.
--- NOTE | 2024-08-04 18:33 | PTCARENOTE ---
Patient's daughter in to visit, states her mother had a flu shot this year. Report called to [facility], waiting for transport.
--- NOTE | 2024-08-04 19:30 | PTCARENOTE ---
Report called to [facility], acute care here now for transport to facility. Report given to transport staff, patient on 2L NC for transport back to rehab.
== END 2024-08-04 19:32 | DRG 242 ==
LOC: IVU 23:24
PROVIDERS: Internal Medicine; Nurse Practitioner; Nurse Practitioner Family; Nurse Practitioner Gerontology; ADMITTING PHYSICIAN Internal Medicine; ATTENDING PHYSICIAN Hospitalist; CONSULT PHYSICIAN Internal Medicine Cardiovascular Disease; EMERGENCY PHYSICIAN Emergency Medicine; FAMILY PHYSICIAN Family Medicine
PROC: 5A09457 Assistance with Respiratory Ventilation, 24-96 Consecutive Hours, Continuous Positive Airway Pressure (ICD-10-PCS; 2024-07-26)
PROC: 02H63JZ Insertion of Pacemaker Lead into Right Atrium, Percutaneous Approach (ICD-10-PCS; 2024-07-29)
PROC: 02HK3JZ Insertion of Pacemaker Lead into Right Ventricle, Percutaneous Approach (ICD-10-PCS; 2024-07-29)
PROC: 0JH606Z Insertion of Pacemaker, Dual Chamber into Chest Subcutaneous Tissue and Fascia, Open Approach (ICD-10-PCS; 2024-07-29)
DX: I49.5 Sick sinus syndrome (principal); I50.31 Acute diastolic (congestive) heart failure; J96.21 Acute and chronic respiratory failure with hypoxia; J18.9 Pneumonia, unspecified organism; I13.0 Hypertensive heart and chronic kidney disease with heart failure and stage 1 through stage 4 chronic kidney disease, or unspecified chronic kidney disease; N18.4 Chronic kidney disease, stage 4 (severe); N17.9 Acute kidney failure, unspecified; F03.93 Unspecified dementia, unspecified severity, with mood disturbance; F03.94 Unspecified dementia, unspecified severity, with anxiety; E85.4 Organ-limited amyloidosis; E11.22 Type 2 diabetes mellitus with diabetic chronic kidney disease; I48.91 Unspecified atrial fibrillation; I68.0 Cerebral amyloid angiopathy; Z66 Do not resuscitate; F32.9 Major depressive disorder, single episode, unspecified; E11.9 Type 2 diabetes mellitus without complications; Z86.73 Personal history of transient ischemic attack (TIA), and cerebral infarction without residual deficits; Z85.820 Personal history of malignant melanoma of skin; Z85.44 Personal history of malignant neoplasm of other female genital organs; E66.9 Obesity, unspecified; Z68.35 Body mass index [BMI] 35.0-35.9, adult; Z90.710 Acquired absence of both cervix and uterus; Z82.3 Family history of stroke; Z79.82 Long term (current) use of aspirin; E78.00 Pure hypercholesterolemia, unspecified; K59.00 Constipation, unspecified; Z79.899 Other long term (current) drug therapy; Z11.52 Encounter for screening for COVID-19; D63.1 Anemia in chronic kidney disease; G47.33 Obstructive sleep apnea (adult) (pediatric); M19.90 Unspecified osteoarthritis, unspecified site; M85.80 Other specified disorders of bone density and structure, unspecified site; Z85.3 Personal history of malignant neoplasm of breast; Z96.642 Presence of left artificial hip joint
CPT/HCPCS: 93308; 33208; 71045; 76770; 80048; 80053; 81003; 81015; 83735; 83880; 84443; 84484; 85025; 85027; 87502; 87811; 90662; 93005; 93321; 93325; 94660; 96374; 97110; 97116; 97163; 97167; 97530; 97535; 99291; C1785; C1892; C1898; G0008

== ENCOUNTER → 2024-08-06 11:15 | Outpatient (REF) | payer OTHER, SELFPAY ==
[2024-08-06 12:13] LABS: Hematocrit 30.8 % (37.0-47.0); Hemoglobin 9.7 g/dL (12.0-16.0); Mean Corp Hgb Conc. 31.5 g/dL (33.0-37.0); Mean Corpuscular Hgb 31.9 pg (27.0-31.0); Mean Corpuscular Volume 101.3 fL (81.0-99.0); Mean Platelet Volume 10.5 fL (7.4-10.4); Platelet Count 190 10^3/uL (130-400); Red Blood Cell Count 3.04 10^6/uL (4.20-5.40); Red Cell Dist. Width 13.6 % (11.5-14.5); White Blood Cell Count 8.4 10^3/uL (4.8-10.8)
[2024-08-06 13:08] LABS: ALT (SGPT) 16 U/L (0-35); AST (SGOT) 18 U/L (14-36); Albumin 2.8 g/dl (3.5-5.0); Alkaline Phosphatase 66 U/L (38-126); Blood Urea Nitrogen 28 mg/dl (7-17); Calcium 8.8 mg/dl (8.4-10.2); Carbon Dioxide 33 mmol/L (22-30); Chloride 99 mmol/L (98-107); Glucose 121 mg/dl (70-99); Magnesium 2.1 mg/dl (1.6-2.3); Potassium 4.3 mmol/L (3.5-5.1); Sodium 138 mmol/L (135-145); Total Bilirubin 0.6 mg/dl (0.2-1.3); Total Protein 5.5 g/dl (6.3-8.2); eGFR 31.02
== END ==
LOC: OLABWHC 11:15
PROVIDERS: ATTENDING PHYSICIAN Family Medicine
DX: D72.829 Elevated white blood cell count, unspecified (principal); I10 Essential (primary) hypertension; I48.0 Paroxysmal atrial fibrillation; R60.9 Edema, unspecified
CPT/HCPCS: 36415; 80053; 83735; 85027

== ENCOUNTER → 2024-08-27 09:59 | Outpatient (REF) | payer OTHER, SELFPAY ==
[2024-08-27 10:58] LABS: Hematocrit 29.6 % (37.0-47.0); Hemoglobin 9.7 g/dL (12.0-16.0); Mean Corp Hgb Conc. 32.8 g/dL (33.0-37.0); Mean Corpuscular Hgb 31.4 pg (27.0-31.0); Mean Corpuscular Volume 95.8 fL (81.0-99.0); Mean Platelet Volume 10.5 fL (7.4-10.4); Platelet Count 234 10^3/uL (130-400); Red Blood Cell Count 3.09 10^6/uL (4.20-5.40); Red Cell Dist. Width 13.4 % (11.5-14.5); White Blood Cell Count 9.3 10^3/uL (4.8-10.8)
[2024-08-27 12:03] LABS: Blood Urea Nitrogen 25 mg/dl (7-17); Calcium 8.7 mg/dl (8.4-10.2); Carbon Dioxide 33 mmol/L (22-30); Chloride 98 mmol/L (98-107); Glucose 131 mg/dl (70-99); Potassium 3.4 mmol/L (3.5-5.1); Sodium 140 mmol/L (135-145); eGFR 31.02
== END ==
LOC: OLABWPC 09:59
PROVIDERS: ATTENDING PHYSICIAN Registered Nurse; FAMILY PHYSICIAN Family Medicine
DX: D64.9 Anemia, unspecified (principal); I50.33 Acute on chronic diastolic (congestive) heart failure; N18.9 Chronic kidney disease, unspecified; E11.9 Type 2 diabetes mellitus without complications
CPT/HCPCS: 36415; 80048; 83735; 85027

== ENCOUNTER 2024-11-01 01:10 | Inpatient (IN) | payer OTHER, SELFPAY ==
[2024-10-31 19:03] VITALS: BP 140/100
[2024-10-31 19:24] LABS: Hematocrit 30.8 % (37.0-47.0); Hemoglobin 10.3 g/dL (12.0-16.0); Mean Corp Hgb Conc. 33.4 g/dL (33.0-37.0); Mean Corpuscular Volume 96.9 fL (81.0-99.0); Nucleated Red Blood Cells % 0 %; Platelet Count 213 10^3/uL (130-400); Red Cell Dist. Width 13.3 % (11.5-14.5)
[2024-10-31 19:45] LABS: ALT (SGPT) 17 U/L (0-35); AST (SGOT) 17 U/L (14-36); Albumin 4.0 g/dl (3.5-5.0); Alkaline Phosphatase 58 U/L (38-126); Blood Urea Nitrogen 23 mg/dl (7-17); Calcium 9.3 mg/dl (8.4-10.2); Carbon Dioxide 28 mmol/L (22-30); Chloride 103 mmol/L (98-107); Glucose 131 mg/dl (70-99); Potassium 4.1 mmol/L (3.5-5.1); Sodium 139 mmol/L (135-145); Total Protein 7.1 g/dl (6.3-8.2); eGFR 30.83
--- NOTE | 2024-10-31 23:17 | ED.GENMED ---
History of Present Illness
General
Chief Complaint: DVT/Possible Blood Clot
Time Seen by Provider: 10/31/24 23:16
History of Present Illness
History of Present Illness:
TIME OF INITIAL EVALUATION
- 11:20 PM
REVIEW OF OLD RECORDS
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
the posterior but there were no proximal DVT from common femoral through popliteal.
Note:
CHIEF COMPLAINT(S)
Suspected deep vein thrombosis (DVT) and potential pulmonary embolism (PE) in the context of brain bleeding and inability to be on anticoagulation.
HISTORY OF PRESENT ILLNESS
The patient is an 89-year-old female with a history of strokes and dementia, who presents with concerns for a blood clot in her calf and possible pulmonary embolism. The current problem began when the patients primary care provider noted hardness in
her leg upon palpation, suspecting deep vein thrombosis due to leg swelling, which led to an ultrasound. The ultrasound confirmed the presence of a clot in the calf. There is also concern for potential pulmonary embolism due to reported wheezing,
although the presentation is atypical for a PE. The patient cannot be placed on anticoagulation like heparin because of her history of brain bleeding, including slow cerebral bleeds post-trauma when she fell and hit her head. Additionally, she was
previously diagnosed with congestive heart failure. The patient describes fluctuating mental states, consistent with her known dementia, where she sometimes recognizes family and her surroundings, while at other times is disoriented.
CHRONIC MEDICAL CONDITIONS SIGNIFICANTLY AFFECTING CARE
- History of multiple strokes
- Dementia
- Chronic slow brain bleeding
- Congestive heart failure
- Poor renal function
SOCIAL DETERMINANTS AFFECTING HEALTH
The patient is under home care with the assistance of caregivers.
MEDICATIONS
- Amiodarone for heart rhythm issues
- Aspirin 81 mg for blood thinning
PHYSICAL EXAM
-General: The patient appears chronically weak and debilitated
-HEENT: Moist oral mucosa
-Cardiovascular: Regular rate and rhythm, she is sinus on the monitor
-Pulmonary: No respiratory distress, breathing is nonlabored, scant wheeze
-Abdomen: Soft and nontender with no peritoneal signs, elevated BMI
-Neurologic: The patient has evidence of dementia, not oriented to month or place, strength is equal in all extremities
-Extremities: Moves all extremities equally, prominence of the soft tissue of the right lower extremity distal to the knee but no evidence of infection
-Psychiatric: Very limited historian, poor insight and judgment
PROBLEM LIST
Acute:
- Suspected deep vein thrombosis in the calf
- Suspected pulmonary embolism
Chronic:
- History of strokes
- Dementia
- Congestive heart failure
- Previous cerebral bleed
PLAN
- Consult with the patients corporate receptionist, Dr. Currie, for further management guidance considering her cardiac history and current constraints.
- Evaluate the possibility of placing an inferior vena cava (IVC) filter as an alternative to anticoagulation.
- Collaboration with multiple specialists to explore treatment options that mitigate the risk of exacerbating renal insufficiency or causing cerebral bleeding.
DIFFERENTIAL DIAGNOSIS
The Differential Diagnosis includes, in no particular order and is not limited to:
- Deep vein thrombosis (DVT)
- Pulmonary embolism (PE)
- Congestive heart failure exacerbation
- Vascular dementia
- Cerebrovascular accident (CVA)
- Chronic kidney disease complications
- Aspiration pneumonia
- Cardiac arrhythmia
- Myocardial infarction
- Chronic anemia
CARE-UPDATE
10/31/24 - 23:43
The patient previously had a CT scan revealing a small amount of brain bleeding in 2019, and there was an episode in late June/early July initially suspected as a stroke, later identified as atrial fibrillation (A-Fib). A loading dose of
amiodarone was administered to control the A-Fib, followed by her transfer to [place] for rehabilitation. However, her heart rate decreased excessively, and she was sent back where congestive heart failure and fluid retention were diagnosed,
resulting in diuretic therapy. A pacemaker was subsequently implanted to manage low heart rate, allowing for the continuation of amiodarone. Currently, the patient is in sinus rhythm and remains on amiodarone without any recent atrial fibrillation
episodes. Pending further consultations, there may be an initiation of anticoagulation via an IV drip for the interim period.
RADIOLOGY
- I reviewed the ultrasound report from earlier today
EKG
- Sinus 68, left axis deviation, left bundle branch block
LABS
- White count normal, hemoglobin 10.3 which is slightly higher than prior, creatinine 1.6 which is near baseline
UPDATE
- I did communicate with Dr. Barnes and spoke to him over the phone he defers management to hospitalist and hand riveter. Bank Guard, Dr. Hall recommends heparin for now.
SUMMARY OF ENCOUNTER
The patient, an 89-year-old female with a history of strokes, dementia, and recent diagnosis of deep vein thrombosis (DVT) in the calf, was seen in the emergency department. Given her concern for a potential pulmonary embolism (PE) and her inability
to be on anticoagulation due to a history of brain bleeding, the case was complex. The decision was made to admit her for Heparin administration and further management. This decision was supported by hematology consultation.
DISPOSITION
Admit
ASSESSMENT
The patient presents with suspected deep vein thrombosis and is at risk for pulmonary embolism. Due to her extensive medical history, there are significant challenges in managing anticoagulation therapy.
MANAGEMENT OF THE PATIENTS CARE WAS DISCUSSED WITH
Discussion was held with hematology regarding the management plan, specifically the use of Heparin, which they agreed with.
INDEPENDENT REVIEW OF LABS AND INTERPRETATION OF TESTS
- My independent interpretation of EKG indicates a sinus rhythm rate of 68 with left-axis deviation and left bundle branch block.
MEDICAL DECISION MAKING
- Chronic conditions affecting care: History of strokes, dementia, chronic slow brain bleeding, congestive heart failure, poor renal function. Differential diagnosis includes deep vein thrombosis (DVT), pulmonary embolism (PE), congestive heart
failure exacerbation, vascular dementia, cerebrovascular accident (CVA), chronic kidney disease complications, aspiration pneumonia, cardiac arrhythmia, myocardial infarction, chronic anemia.
- Data:
Category 1
- The patients EKG was independently reviewed, noting sinus rhythm with left-axis deviation and left bundle branch block.
Category 3
- Discussion of management with a hand riveter regarding the use of Heparin.
DIAGNOSIS
- Deep vein thrombosis (DVT) of the calf, ICD-10: I82.409
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
- Dementia, ICD-10: F03.90
Past History
Past History
ED Past Medical History: Cancer (Endometrial 2017), CVA (Chronic right frontal lobe), HTN, Hypercholesterolemia, Psychiatric (Major depression), Other (Chronic cough, dementia, obstructive sleep apnea, osteopenia) and Other (Urinary incontinence,
osteoarthritis, constipation)
ED Past Surgical History: Gynecological (Total hysterectomy), Orthopedic (Left total hip replacement) and Other (Right breast lumpectomy, melanoma excision left leg)
Social History
Tobacco: Non-smoker
Alcohol: None
Drug: None
Personal:
Living: with family
Employment: Retired
Family History
Family History: Other (Reviewed and noncontributory)
Phy Exam
Physical Exam
Physical Exam:
See HPI
Course
Orders/Labs/Results
Orders:
Orders
10/31/24 19:12
Complete Blood Count/With Diff Urgent
Comprehensive Metabolic Panel Urgent
10/31/24 23:45
Heparin 25517 Units/250 ml 25,000 units in 250 ml IV PER PROTOCOL
Weight to be used for heparin protocol in kilograms (kg):: 93
Protocol:: DVT/PE
PTT Goal Range to be used:: PTT 73 to 111 seconds
Order type:: Initial
INITIAL Infusion Dose (UNITS/KG/hr) & then follow protocol:: 18 units/kg/hr
Infusion Dose in UNITS/hr & then follow protocol (UNITS/hr):: 1,700
INFUSION RATE in mL/hr & then follow protocol (mL/hr):: 17
For DVT/PE algorithm, re-bolus for low PTT?: Yes
PTT less than or equal to 64 seconds:: Re-bolus 80 units/kg (max 10,000units). Increase by 400 units/hr
(+ 4mL/hr)
PTT 64.1 to 72.9 seconds:: Re-bolus 40 units/kg (max 5,000 units). Increase by 200 units/hr
(+ 2mL/hr)
PTT 73 to 111 seconds:: Target Range. No change in rate.
PTT 111.1 to 130.9 seconds:: Decrease rate by 200 units/hr (- 2 mL/hr)
PTT 131 to 199.9 seconds:: HOLD for 1 hr. Then decrease by 300 units/hr (- 3mL/hr)
PTT greater than or equal to 200 seconds:: HOLD for 2 hrs & Notify Provider. Then decrease by 400 units/hr
(- 4mL/hr)
Lab follow-up:: Each change, PTT q6h until 2 consecutive are therapeutic. Then
PTT daily.
Pharmacy Request to Place See Dose Instructions IV DIRECTED
10/31/24 23:51
Heparin 7,400 units IV NOW STA
Pharmacy Request to Place See Dose Instructions PO NOW STA
Discontinue all Active Warfarin orders?: Yes
10/31/24 23:54
PTT Urgent
Comment: Obtain baseline before beginning heparin infusion if not already collected
10/31/24 23:55
Electrocardiogram (*1) Urgent
Reason for Study: Shortness of Breath
10/31/24 23:56
EKG- Treatment ONCE
Abnormal Lab Results
10/31/24
19:12
RBC 3.18 L 10^6/uL
(4.20-5.40)
Hgb 10.3 L g/dL
(12.0-16.0)
Hct 30.8 L %
(37.0-47.0)
MCH 32.4 H pg
(27.0-31.0)
Absolute Neuts (auto) 6.7 H 10^3/uL
(1.4-6.5)
Absolute Lymphs (auto) 1.1 L 10^3/uL
(1.2-3.4)
Absolute Monos (auto) 0.7 H 10^3/uL
(0.1-0.6)
Neutrophils % 75.6 H %
(42.2-75.2)
Lymphocytes % 13.0 L %
(20.5-51.1)
BUN 23 H mg/dl
(7-17)
Creatinine 1.6 H mg/dL
(0.6-1.0)
Glucose 131 H mg/dl
(70-99)
10/31/24 19:12
10/31/24 19:12
Vital Signs
Initial and Last Documented VS:
Initial Vital Signs
Temp Pulse Resp BP Pulse Ox
36.7 C 108 16 140/100 98
10/31/24 19:03 10/31/24 19:03 10/31/24 19:03 10/31/24 19:03 10/31/24 19:03
Last Documented Vital Signs
Temp Pulse Resp BP Pulse Ox
36.7 C 67 18 150/48 96
10/31/24 19:03 10/31/24 23:55 10/31/24 23:55 10/31/24 23:55 11/01/24 00:26
*Pulse Oximetry
SaO2: 98
Oxygen Mode of Delivery: Room air
Patient hypoxic: no
*Critical Care Note
Total Time (30-74mins, 75-104mins- exclusive of procedures): Not Applicable
ED Attending Note
-
Portions of this chart may have been created with voice recognition software.� Occasional wrong word or��sound alike� substitutions may have occurred due to the inherent limitations of voice recognition software.
Discharge Plan
Departure
Patient Disposition: Admit
Date of Disposition: 10/31/24
Time of Disposition: 23:51
Presentation/result/management discussed w/ accepting MD/DO: Hospitalist
Discharge Problem:
DVT (deep venous thrombosis)
Prescriptions:
No Action
Centrum Silver Women 1 EACH tablet
1 ea PO DAILY
sennosides [senna] 1 TABLET tablet
2 tab PO BID PRN (Reason: constipation)
simvastatin 20 MG tablet
20 mg PO HS
escitalopram oxalate 5 MG tablet
5 mg PO DAILY
aspirin 81 mg Capsule
81 mg PO DAILY
polyethylene glycol 3350 17 gram Powder In Packet
17 g PO DAILY Qty: 0 0RF
hydralazine 25 mg Tablet
25 mg PO BID Qty: 0 0RF
amiodarone 200 mg Tablet
200 mg PO DAILY Qty: 20 0RF
Rx Instructions:
Start 200 mg once daily on July 28
acetaminophen 650 mg Tablet
650 mg PO Q6H PRN (Reason: temp)
amoxicillin-pot clavulanate 500-125 mg Tablet
1 tab PO Q12 Qty: 2 0RF
Rx Instructions:
for 2 doses
metoprolol succinate 50 mg Tablet Extended Release 24 Hr
75 mg PO BID Qty: 0 0RF
furosemide 80 mg Tablet
80 mg PO DAILY Qty: 0 0RF
Interventions
Interventions:
*Risk Screen - Suicide Last Done: 10/31/24 19:03
*Neglect/Abuse Screening Last Done: 10/31/24 19:03
ED- Cardiac Assessment Last Done: 11/01/24 00:26
ED- Pulmonary Assessment Last Done: 11/01/24 00:26
ED-Peripheral Vascular Assessment Last Done: 11/01/24 00:26
ED-Skin Assessment Last Done: 11/01/24 00:26
Discharge Date and Time
Print Language: AMHARIC
[2024-10-31 23:55] VITALS: BP 150/48
[2024-10-31] MEDS: HEPARIN 7400 UNITS IV (23:59)
[2024-11-01] VITALS (7 sets, daily range): BP systolic 107–159; BP diastolic 55–70
[2024-11-01 00:20] LABS: APTT 26.5 Sec (23.4-35.0)
--- NOTE | 2024-11-01 00:55 | HPS.HSE ---
Family Physician
-
Family Physician: NOT KNOW UNKNOWN - PT DOES
Chief Complaint
-
RLE Swelling
History of Present Illness
Patient is an 89y F with PMH significant for hypertension, DM-II and suspected cerebral amyloid angiopathy who presents to ED complaining of RLE swelling and discomfort. History obtained from patient and family at the bedside. Family has noted
asymmetry in the LEs for the past week or so - with significant increase in size in the RLE. Today patient was out of the house for the first time in quite a while. She was seen by her PCP who sent patient for US to rule out DVT. This showed
occlusive thrombus in the RLE and patient was referred to the ED for further evaluation.
Patient denies any chest pain or dyspnea.
Medical History
Past Medical History
Past Medical History: Reports Other
Additional Past Medical History:
Hypertension
Paroxysmal Atrial Fibrillation
Chronic HFpEF
DM-II
Prior CVA
Hemorrhagic Cerebral Contusion (2019)
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
Anxiety / Depression
Melanoma
Endometrial Cancer
Obesity
Dementia
Past Surgical History: Reports Other
Additional Past Surgical History:
Right Breast Biopsy
Tubal Ligation
D&C
Robotic Hysterectomy / BSO
Left BETTINA
Melanoma Excision
Social History
Tobacco: Non-smoker
Alcohol: None
Drug: None
Personal:
Living: With Family
Family History
Family History: Other (Mother: CVA Daughter: CVA)
Allergies / Home Medications
Allergies reflects when Allergies were last updated in [facility].
Home Medications with original date entered in [facility]
Allergy/Medication List:
Allergies
Allergy/AdvReac Type Severity Reaction Status Date / Time
Calcium Channel Blocking Allergy Shortness Verified 10/31/24 19:05
Agent Dilt of breath,
weakness,
tired
verapamil Allergy Shortness Verified 10/31/24 19:05
of breath,
weakness,
tired
Home Medications
aridcujv-nhqh-otnt 8 mg-folic 400 mcg-K 50 mcg-lutein 300 mcg tablet (Centrum Silver Women) 1 ea PO DAILY Supplement 06/06/18
escitalopram oxalate 5 mg tablet 5 mg PO DAILY Mental Health/Anxiety 03/15/20
sennosides 8.6 mg tablet (senna) 2 tab PO BID PRN constipation 03/15/20
simvastatin 20 mg tablet 20 mg PO HS High cholesterol 03/15/20
aspirin 81 mg capsule 81 mg PO DAILY Blood Clot Prevention/Tx 05/12/23
amiodarone 200 mg tablet 200 mg PO DAILY #20 tabs 07/21/24
hydralazine 25 mg tablet 25 mg PO BID #0 tabs 07/21/24
furosemide 40 mg tablet (Lasix) 40 mg PO DAILY 11/01/24
potassium chloride 20 mEq tablet,extended release 20 meq PO DAILY 11/01/24
Review of Systems
-
History Source: Patient and Family
A 12 point ROS was completed and negative except as noted: Yes
Constitutional: Reports Fatigue; Denies Fever or Chills
Respiratory: Denies Cough or Trouble Breathing
Cardiac: Denies Chest Pain or Palpitations
Abdomen/GI: Denies Abdominal Pain, Nausea, Vomiting or Diarrhea
: Denies Dysuria or Flank Pain
Musculoskeletal: Reports Muscle Pain and Edema; Denies Joint Pain
Neurological: Denies Dizzy or Headache
Psych: Denies Depression or Anxiety
Physical Exam
Vital Signs
Vital Signs
Temp Pulse Resp BP Pulse Ox
98.0 F 67 18 150/48 96
10/31/24 19:03 10/31/24 23:55 10/31/24 23:55 10/31/24 23:55 11/01/24 00:26
Physical Exam
General: Other (89y F in no acute distress.)
HEENT: Moist mucous membranes, PERRLA and Other (Thick neck.)
Respiratory: Clear; No Wheezes, Rales or Rhonchi
Cardiac: S1/S2 and Irregular Rhythm; No Murmur
GI: Soft, Non Tender, Non Distended and Normal Bowel Sounds
Musculoskeletal: Other (RLE with 2+ edema compared to the LLE. Mild rubor. Pos calf tenderness.)
Laboratory Results
-
10/31/24 19:12
10/31/24 19:12
Laboratory Results
APTT 26.5 Sec (23.4-35.0) 10/31/24 23:54
Total Bilirubin 0.5 mg/dl (0.2-1.3) 10/31/24 19:12
AST 17 U/L (14-36) 10/31/24 19:12
ALT 17 U/L (0-35) 10/31/24 19:12
Alkaline Phosphatase 58 U/L (38-126) 10/31/24 19:12
Impression/Plan
-
A/P: Patient is an 89y F with PMH significant for A-Fib, CHF, hypertension and dementia who presents to ED after outpatient US showed RLE DVT.
RLE DVT
- Admit for further evaluation and treatment.
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
- Hold on active anticoagulation for now.
- IR eval in AM for IVC filter placement.
- Hematology evaluation for additional recommendations.
- Monitor for increased LE pain or development of new chest discomfort, SOB, etc.
Paroxysmal A-Fib
- Stable. Continue once daily amiodarone.
- Continue ASA 81mg only.
- s/p PPM in July 2024.
Chronic HFpEF
- Stable. No evidence of gross volume overload on current exam.
- Continue usual diuretic regimen / potassium supplementation.
- Follow I/Os, daily weights, etc.
CKD IV
- Stable. Renal function is at / near known baseline.
- Follow for any changes.
Chronic Anemia
- Stable. Hgb is at / near known baseline.
- Follow for changes.
Senile Dementia
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
- No significant behavioral issues, etc.
Code Status: DNR
[2024-11-01] MEDS: TYLENOL 650 MG PO (01:33)
--- NOTE | 2024-11-01 03:00 | PTCARENOTE ---
Pt admitted to 332 from ED. Pulled over to bed. Pt only oriented to self, Bed alarm on. Oriented to environment. Pt appears comfortable, asking if she 'can go back to sleep.' Call pollock within reach.
[2024-11-01 06:42] LABS: Hematocrit 27.5 % (37.0-47.0); Hemoglobin 9.1 g/dL (12.0-16.0); Mean Corp Hgb Conc. 33.1 g/dL (33.0-37.0); Mean Corpuscular Volume 96.5 fL (81.0-99.0); Platelet Count 171 10^3/uL (130-400); Red Cell Dist. Width 13.6 % (11.5-14.5)
[2024-11-01 07:05] LABS: Blood Urea Nitrogen 22 mg/dl (7-17); Calcium 8.8 mg/dl (8.4-10.2); Carbon Dioxide 26 mmol/L (22-30); Chloride 106 mmol/L (98-107); Glucose 107 mg/dl (70-99); Potassium 3.6 mmol/L (3.5-5.1); Sodium 138 mmol/L (135-145); eGFR 30.83
--- NOTE | 2024-11-01 09:10 | CON.CAR ---
Addendum entered and electronically signed by Gerry Barnes MD 11/01/24 12:46:
I saw and examined the patient.
The residents note was reviewed and I agree with the note.
Comment: I reviewed hematology/oncology Dr. Lucrecia Hall's comments and I concur and have the same reservations about IVC filter. The family seems inclined to proceed as that was the plan outlined by the PCP. I do not object.
Hospice and or palliative care both seem appropriate for this patient with advanced dementia and multiple comorbid conditions.
Patients who have had a prior intracerebral hemorrhage and are suspected to have cerebral angiopathy are very complex high risk patients for which there is limited data and limited consensus. From the atrial fibrillation perspective my colleagues
were unwilling to proceed with long-term anticoagulation.
A middle ground of 3 months of Eliquis without aspirin for the acute treatment of DVT could be considered but the family is against that from my reading.
There is no ABC dose reduction for Eliquis. For acute DVT the treatment would be 10 mg twice daily for 7 days then 5 mg twice daily to complete treatment course of 3 to 6 months. For atrial fibrillation ABC dose reduction for age, body weight, serum
creatinine is performed in this patient's A-fib dose would be 2.5 twice daily.
Cardiology will sign off.
I performed all image review tracing review study review and laboratory review as reflected in this note below.
Original Note:
Consultation
Consultation Request
Date/Time Consultation Requested: 11/01/2024 07:00am
Date/Time Consultation Performed: 11/01/2024 08:00am
Requesting Provider: Dr. Nathan Archer
Performing Provider: Dr. Gerry Barnes
Reason for Consultation: Anticoagulation evaluation
Medical History
-
Chief Complaint: DVT
History of Present Illness:
89-year-old female with past medical history of hemorrhagic cerebral contusion, suspected cerebral amyloid angiopathy, dementia, atrial fibrillation not on anticoagulation due to history of cerebral hemorrhage, HFpEF, type 2 diabetes, hypertension,
hyperlipidemia, left frontal CVA, obstructive sleep apnea presented to the ER on 10/31/24 for right lower extremity swelling. Patient was evaluated earlier in the day by her primary care physician and sent for right lower extremity ultrasound.
They found a DVT and due to patient's reported wheezing, she was referred to the ER for further evaluation. Patient denied chest pain or SOB.
Of note, patient was hospitalized here in late june and found to be in a.fib with RVR for which amiodarone and metoprolol were initiated. Anticoagulation was not started due to high bleeding risk/cerebral amyloid angiopathy. She was later
readmitted for acute on chronic HFpEF exacerbation with significant bradycardia. On 07/27/2024 she had a Medtronic dual-chamber pacemaker placed by Dr. George. She did convert to sinus rhythm after pacemaker placed and f/u with cardiology
outpatient. Last echo 07/25/2024 LVEF 55-60% without regional wall motion abnormality. Mild MR, mild AR, moderate TR, pulmonary artery pressure 50 mmHg.
In the ED BP 140/100, HR 108, RR 16, afebrile satting 98% on room air. Cr at baseline 1.6, Hg 10.3. EKG normal sinus rhythm with left bundle branch block. Patient was admitted for further evaluation. Anticoagulation has been held due to history of
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 Hematology and interventional radiology were consulted for potential IVC filter placement. Cardiology was consulted to weigh in on decision for anticoagulation.
Past Medical History
Past Medical History: Other (Hypertension, hyperlipidemia, type 2 diabetes, hemorrhagic cerebral contusion, cerebral and amyloid angiopathy, dementia, left frontal CVA, osteopenia, anxiety/depression, RANJAN, osteopenia pi�a, paroxysmal atrial
fibrillation, HFpEF, melanoma left cath, endometrial cancer 2017 status post hysterectom)
Past Surgical History: Other (Breast biopsy, melanoma resection, D&C, LPS-BTL, robotic LAVH, BSO, L NS 2017, total hip replacement, pacemaker implant 07/2024 (Medtronic dual chamber pacemaker) )
Social History
Tobacco: Non-Smoker
Alcohol: None
Drug: None
Personal:
Living: With Family
Family History
Family History: Other (Mother - CVA, daughter -CVA, RANJAN, father - prostate cancer, CHF, hypertension)
Allergies / Home Medications
Allergy/AdvReac Type Severity Reaction Status Date / Time
Calcium Channel Blocking Allergy Shortness Verified 10/31/24 19:05
Agent Dilt of breath,
weakness,
tired
verapamil Allergy Shortness Verified 10/31/24 19:05
of breath,
weakness,
tired
�Medication �Instructions �Recorded �Confirmed �Type
khscuefs-vlen-syjp 8 mg-folic 400 1 ea PO DAILY Supplement 06/06/18 11/01/24 History
mcg-K 50 mcg-lutein 300 mcg tablet
(Centrum Silver Women)
escitalopram oxalate 5 mg tablet 5 mg PO DAILY Mental Health/Anxiety 03/15/20 11/01/24 History
sennosides 8.6 mg tablet (senna) 2 tab PO BID PRN constipation 03/15/20 11/01/24 History
simvastatin 20 mg tablet 20 mg PO HS High cholesterol 03/15/20 11/01/24 History
aspirin 81 mg capsule 81 mg PO DAILY Blood Clot 05/12/23 11/01/24 History
Prevention/Tx
amiodarone 200 mg tablet 200 mg PO DAILY #20 tabs 07/21/24 11/01/24 Rx
hydralazine 25 mg tablet 25 mg PO BID #0 tabs 07/21/24 11/01/24 Rx
furosemide 40 mg tablet (Lasix) 40 mg PO DAILY 11/01/24 11/01/24 History
potassium chloride 20 mEq 20 meq PO DAILY 11/01/24 11/01/24 History
tablet,extended release
Review of Systems
-
Unable to obtain full review of systems at this time due to: Dementia
Physical Exam
Vital Signs
Temp Pulse Resp BP Pulse Ox
98.4 F 66 18 148/57 94
11/01/24 07:26 11/01/24 07:26 11/01/24 07:26 11/01/24 07:26 11/01/24 07:26
Lab Results
11/01/24 06:03
11/01/24 06:03
Physical Exam
General: No Apparent Distress
Respiratory: Clear
Cardiac: S1/S2, Regular Rhythm and Murmur
GI: Soft, Non Tender, Non Distended and Normal Bowel Sounds
Musculoskeletal: Edema (Increased swelling in right lower extremity)
Neuro: Awake (Not oriented to time, place or person)
Psych: Calm
Impression / Plan
-
89-year-old female with past medical history of hemorrhagic cerebral contusion, suspected cerebral amyloid angiopathy, dementia, atrial fibrillation not on anticoagulation due to history of cerebral hemorrhage, HFpEF, type 2 diabetes, hypertension,
hyperlipidemia, left frontal CVA, obstructive sleep apnea presenting with RLE DVT. Due to high risk of CARDIOVASCULAR TECHNICIAN bleed, patient was started on anticoagulation for A-fib with RVR in the past. Today, patient is presenting with DVT and discussions for
anticoagulation versus IVC filter are ongoing. Patient appears to have advanced dementia and not oriented to place, person or time. Unable to tell me her full name or birthday. Goals of cares need to be considered.
DVT
--Deep venous thrombosis of the right posterior tibial vein.
--From a cardiology standpoint, hematology to comment on treatment plan. Difficult to stratify risk of brain bleed.
-- From cardiac perspective we did not feel she would tolerate anticoagulation for her recent paroxysmal a.fib. Seems reasonable to consider other treatment for DVT instead of anticoagulation. If hematology and medicine agrees, perhaps a short 3
month course of Eliquis could be considered (would stop ASA during Eliquis treatment).
--IR consulted for IVC filter placement
Paroxysmal a.fib
--currently in sinus rhythm
--Continue amio 200 PO daily
--Anticoagulation not indicated for a.fib in this case with history of CARDIOVASCULAR TECHNICIAN bleed and cerebral amyloid angiopathy
HFpEF, chronic, well compensated
--Last echo 07/28/2024 LVEF 55 to 60%. No regional wall motion abnormality. Moderate MR, mild AR, moderate TR, pulmonary artery pressure 50 mmHg.
--Continue lasix 40 daily, K 20mEQ daily
--Not on ARNI and SGLT2 due to cost. No spironolactone added due to renal function.
HTN
--BP close to patient baseline
--On home hydralazine 25 BID
DMII
-07/13/2024 HgA1c 6.3 - controlled
-defer to primary team
Hx CVA/hemorrhagic cerebral contusion/suspected cerebral amyloid angiopathy
-On ASA 81
-On simvastatin 20
DVT - not on anticoagulation or SCD due to the DVT and bleed risk
DNR
Data Reviewed
-
EKG: Report Reviewed by me (10/31/2024 NORMAL SINUS RHYTHM LEFT AXIS DEVIATION LEFT BUNDLE BRANCH BLOCK)
Ultrasound: Report Reviewed by me (10/31/2024 peripheral vascular ultrasoundOcclusive thrombus in the anterior division of the posterior tibial vein, nonocclusive thrombus in the posterior division of the posterior tibial vein. The peroneal vein is
not well seen on this exam. The right common femoral, femoral, and popliteal veins are)
Medical Tests (Nuc Med, Echo etc): Report Reviewed by me (Last echo 07/28/2024 LVEF 55 to 60%)
Labs: Labs Reviewed by me (Cr 1.6, hg 9.1, GFR 30)
[2024-11-01] MEDS: ASPIR LOW (ENTERIC COATED) 81 MG PO (09:33)
[2024-11-01] MEDS: KCL 20 MEQ PO (09:33)
[2024-11-01] MEDS: LASIX 40 MG PO (09:33)
[2024-11-01] MEDS: PACERONE 200 MG PO (09:33)
[2024-11-01] MEDS: LEXAPRO 5 MG PO (09:33)
[2024-11-01] MEDS: APRESOLINE 25 MG PO ×2 (09:34→21:02)
--- NOTE | 2024-11-01 12:23 | W.PN.UPDATE ---
Update Note
Progress Note Update
Full consult to follow.
Met with pt and three daughters.
Noted that pt at the point of medical futility with regard to her multiple medical conditions and that they may want to consider hospice. They want to discuss with their father/pt's , but acknowledge that she has been declining and that she
would prefer not to have to come back to the hospital.
I do not object to her proceeding with IVC filter placement with caveat that it will not improve the pain from lower extremity swelling.
Options to palliate pain would be to start anticoagulation, or pain meds +/- compression. Requested lymphedema PT consult re: wrapping leg or compression garment.
For now:
- proceed with IVC filter placement as planned
- hospice consult if requested after the daughters confer with other family
--- NOTE | 2024-11-01 14:45 | W.PN.HOSP.TC ---
Today's Communication/Plan
-
Sleeping comfortably. Continue supportive care.
Assessment / Plan
Assessment / Plan
A/P: Patient is an 89y F with PMH significant for A-Fib, CHF, hypertension and dementia who presents to ED after outpatient US showed RLE DVT.
1. RLE DVT
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
- Hold on active anticoagulation for now.
- IR eval for IVC filter placement.
- Hematology evaluation for additional recommendations appreciated
- Monitor for increased LE pain or development of new chest discomfort, SOB, etc.
2. Paroxysmal A-Fib
- Stable. Continue once daily amiodarone.
- Continue ASA 81mg only.
- s/p PPM in July 2024.
3. Chronic HFpEF
- Stable. No evidence of gross volume overload on current exam.
- Continue usual diuretic regimen / potassium supplementation.
- Follow I/Os, daily weights, etc.
4. CKD IV
- Stable. Renal function is at / near known baseline.
- Follow for any changes.
5. Chronic Anemia
- Stable. Hgb is at / near known baseline.
- Follow for changes.
6. Senile Dementia
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
- No significant behavioral issues, etc.
Code Status: DNR
Anticipated Discharge: > 48 hours
Subjective/Interval History
-
Date of Service: November 01, 2024
Sleeping comfortably.
Objective Data
-
Labs:
Laboratory Results
11/01/24
06:03
WBC 6.8
Hgb 9.1 L
Hct 27.5 L
Plt Count 171
Sodium 138
Potassium 3.6
Chloride 106
Carbon Dioxide 26
BUN 22 H
Creatinine 1.6 H
Glucose 107 H
Calcium 8.8
Vital Signs:
Vital Signs
Temp Pulse Resp BP Pulse Ox
97.5 F 69 18 107/70 96
11/01/24 11:05 11/01/24 11:05 11/01/24 11:05 11/01/24 11:05 11/01/24 11:05
Review of Systems
-
Unable to obtain full review of systems at this time due to: Patient Non-verbal
Physical Exam
-
General: Well Developed, Well Nourished, No Apparent Distress and Comfortable
Respiratory: Clear to Auscultation
Cardiac: Regular Rhythm and S1/S2
GI: Soft
Skin: Warm and Dry
Psych: Calm
Data Reviewed
-
Labs: Labs Reviewed by me
--- NOTE | 2024-11-01 18:12 | CON.ONC ---
Consultation
-
Date Consultation Requested: 11/01/24
Date Consultation Performed: 11/01/24
Requesting Provider: Leroy Lopez
Performing Provider: Lucrecia Hall
Reason for Consultation: DVT, contraindication to anticoagulation
Impression
Impression
LE DVT
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
Hypertension
Paroxysmal Atrial Fibrillation
Chronic HFpEF
DM-II
Prior CVA
Hemorrhagic Cerebral Contusion (2019)
Anxiety / Depression
Hx Melanoma
Hx Endometrial Cancer
Obesity
Dementia
Plan
Plan
Pt with multiple comorbidities including dementia.
Approaching point of medical futility with afib and symptomatic DVT but also cerebral amyloid angiopathy.
Broached subject of goals of care.
If goal is comfort than would anticoagulate short-term to relieve pain and swelling from DVT.
IVC filter will not improve symptoms from the DVT, it only prevents PE. The filter may make the clot worse.
Suggested PT eval to see if lymphedema treatments such as compression garment might palliate the pain and swelling.
Hospice seems appropriate for pt who has been declining recently and now has two conflicting medical problems.
For now:
- proceed with IVC filter placement as planned
- hospice consult if requested after the daughters confer with other family
Thank you for consult, will follow along with you.
Patient History
History of Present Illness
Patient is an 89y F with complicated PMH significant for dementia, hypertension, DM-II and suspected cerebral amyloid angiopathy diagnosed during a recent hospitalization here. She had atrial fibrillation but was not started on anticoagulation due
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 History obtained from chart and family at the bedside. Family have been noticing gradual decline recently and pt has expressed frustration at her functional limitations. One of her daughters states that pt
has said at times over the last few months, 'Why can't I just ?' She has now presented to ED complaining of RLE swelling and discomfort. LE extremity Dopplers show DVT. Plan presented was to place IVC filter. We are consulted regarding
optimal management
Past-Medical/Surgical History
Medical History
Hypertension
Paroxysmal Atrial Fibrillation
Chronic HFpEF
DM-II
Prior CVA
Hemorrhagic Cerebral Contusion (2019)
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
Anxiety / Depression
Melanoma
Endometrial Cancer
Obesity
Dementia
Surgical History
Right Breast Biopsy
Tubal Ligation
D&C
Robotic Hysterectomy / BSO
Left BETTINA
Melanoma Excision
Social
Tobacco: Non-smoker
Alcohol: None
Drug: None
Personal:
Living: With Family
Family
N/C due to age
Patient Medication
�Medication �Instructions �Recorded �Confirmed �Last Taken �Type
aqjhgubg-gijr-uhdp 8 mg-folic 400 1 ea PO DAILY Supplement 06/06/18 11/01/24 05/12/23 History
mcg-K 50 mcg-lutein 300 mcg tablet
(Centrum Silver Women)
escitalopram oxalate 5 mg tablet 5 mg PO DAILY Mental Health/Anxiety 03/15/20 11/01/24 05/12/23 History
sennosides 8.6 mg tablet (senna) 2 tab PO BID PRN constipation 03/15/20 11/01/24 05/12/23 History
simvastatin 20 mg tablet 20 mg PO HS High cholesterol 03/15/20 11/01/24 05/12/23 History
aspirin 81 mg capsule 81 mg PO DAILY Blood Clot 05/12/23 11/01/24 05/12/23 History
Prevention/Tx
amiodarone 200 mg tablet 200 mg PO DAILY #20 tabs 07/21/24 11/01/24 Unknown Rx
hydralazine 25 mg tablet 25 mg PO BID #0 tabs 07/21/24 11/01/24 Unknown Rx
furosemide 40 mg tablet (Lasix) 40 mg PO DAILY 11/01/24 11/01/24 Unknown History
potassium chloride 20 mEq 20 meq PO DAILY 11/01/24 11/01/24 Unknown History
tablet,extended release
Active Medications
Generic Name Dose Route Start Last Admin
Trade Name Freq PRN Reason Stop Dose Admin
Acetaminophen 650 mg 11/01/24 01:16 11/01/24 01:33
Acetaminophen 325 Mg Tablet PO 11/29/24 01:15 650 mg
Q4HPRN PRN Administration
Mild Pain / Temp > 101
Amiodarone HCl 200 mg 11/01/24 08:00 11/01/24 09:33
Amiodarone 200 Mg Tablet PO 11/29/24 07:59 200 mg
DAILY MADHURI Administration
Aspirin 81 mg 11/01/24 08:00 11/01/24 09:33
Aspirin 81 Mg (Enteric Coated) Tablet PO 11/29/24 07:59 81 mg
DAILY MADHURI Administration
Atorvastatin Calcium 10 mg 11/01/24 22:00
Atorvastatin (Lipitor) 10 Mg Tablet PO 11/29/24 21:59
HS MADHURI
Escitalopram Oxalate 5 mg 11/01/24 08:00 11/01/24 09:33
Escitalopram 5 Mg Tablet PO 11/29/24 07:59 5 mg
DAILY MADHURI Administration
Furosemide 40 mg 11/01/24 08:00 11/01/24 09:33
Furosemide 40 Mg Tablet PO 11/29/24 07:59 40 mg
DAILY MADHURI Administration
Hydralazine HCl 25 mg 11/01/24 08:00 11/01/24 09:34
Hydralazine 25 Mg Tablet PO 11/29/24 07:59 25 mg
BID MADHURI Administration
Potassium Chloride 20 meq 11/01/24 08:00 11/01/24 09:33
Potassium Chloride 20 Meq Extended Release Tablet PO 11/29/24 07:59 20 meq
DAILY MADHURI Administration
Sodium Chloride 0 flush 11/01/24 04:00
Sodium Chloride 0.9% (Flush) Syringe IV 11/29/24 03:59
PER PROTOCOL MADHURI
Review of Systems
-
Unable to obtain full review of systems at this time due to: Dementia
Physical Exam
-
Pt sleeping throughout H&P today
Appears comfortable
RLE with 2+ edema, erythema and tenderness
Labs
Lab Results
WBC 6.8 10^3/uL (4.8-10.8) 11/01/24 06:03
RBC 2.85 10^6/uL (4.20-5.40) L 11/01/24 06:03
Hgb 9.1 g/dL (12.0-16.0) L 11/01/24 06:03
Hct 27.5 % (37.0-47.0) L 11/01/24 06:03
MCV 96.5 fL (81.0-99.0) 11/01/24 06:03
MCH 31.9 pg (27.0-31.0) H 11/01/24 06:03
MCHC 33.1 g/dL (33.0-37.0) 11/01/24 06:03
RDW 13.6 % (11.5-14.5) 11/01/24 06:03
Plt Count 171 10^3/uL (130-400) 11/01/24 06:03
MPV 10.0 fL (7.4-10.4) 11/01/24 06:03
Abs Immat Gran (auto) 0.0 10^3/uL (0-0.05) 10/31/24 19:12
Absolute Neuts (auto) 6.7 10^3/uL (1.4-6.5) H 10/31/24 19:12
Absolute Lymphs (auto) 1.1 10^3/uL (1.2-3.4) L 10/31/24 19:12
Absolute Monos (auto) 0.7 10^3/uL (0.1-0.6) H 10/31/24 19:12
Absolute Eos (auto) 0.2 10^3/uL (0-0.7) 10/31/24 19:12
Absolute Basos (auto) 0.0 10^3/uL (0-0.2) 10/31/24 19:12
Immature Gran % 0.2 % (0-0.5) 10/31/24 19:12
Neutrophils % 75.6 % (42.2-75.2) H 10/31/24 19:12
Lymphocytes % 13.0 % (20.5-51.1) L 10/31/24 19:12
Monocytes % 8.3 % (1.7-9.3) 10/31/24 19:12
Eosinophils % 2.4 % (0-6) 10/31/24 19:12
Basophils % 0.5 % (0-2) 10/31/24 19:12
Creatinine 1.6 mg/dL (0.6-1.0) H 11/01/24 06:03
Vital Signs
Vital Signs
Temp Pulse Resp BP Pulse Ox
97.8 F 70 18 135/55 95
11/01/24 15:07 11/01/24 15:07 11/01/24 15:07 11/01/24 15:07 11/01/24 15:07
[2024-11-01] MEDS: LIPITOR 10 MG PO (21:01)
[2024-11-02 03:30] VITALS: BP 125/54
[2024-11-02 04:43] LABS: Hematocrit 27.8 % (37.0-47.0); Hemoglobin 9.4 g/dL (12.0-16.0); Mean Corp Hgb Conc. 33.8 g/dL (33.0-37.0); Mean Corpuscular Volume 95.9 fL (81.0-99.0); Platelet Count 168 10^3/uL (130-400); Red Cell Dist. Width 13.2 % (11.5-14.5)
[2024-11-02 05:06] LABS: Blood Urea Nitrogen 20 mg/dl (7-17); Calcium 9.0 mg/dl (8.4-10.2); Carbon Dioxide 29 mmol/L (22-30); Chloride 106 mmol/L (98-107); Glucose 106 mg/dl (70-99); Potassium 3.8 mmol/L (3.5-5.1); Sodium 139 mmol/L (135-145); eGFR 30.83
[2024-11-02 07:00] VITALS: BP 142/55
[2024-11-02] MEDS: LEXAPRO 5 MG PO (07:53)
[2024-11-02] MEDS: APRESOLINE 25 MG PO ×2 (07:53→20:15)
[2024-11-02] MEDS: KCL 20 MEQ PO (07:54)
[2024-11-02] MEDS: PACERONE 200 MG PO (07:54)
[2024-11-02] MEDS: ASPIR LOW (ENTERIC COATED) 81 MG PO (07:54)
[2024-11-02] MEDS: LASIX 40 MG PO (07:54)
--- NOTE | 2024-11-02 08:02 | W.PN.UPDATE ---
Update Note
Progress Note Update
Discussed potential IVC filter placement with daughter Shalini. The family is weighing their options regarding treatment and goals of care. I discussed that the IVC filter will not improve the symptoms of her DVT, and that there are small short term
and long term acute care registered nurse risks of IVC filter placement.
She would like to have further discussions with the rest of her family to decide on the best path forward. Will hold on IVC filter placement.
[2024-11-02 09:10] VITALS: BP 160/64; BP 91/66; PULSE 61
[2024-11-02 11:04] VITALS: BP 114/65
--- NOTE | 2024-11-02 14:14 | W.PN.HOSP.TC ---
Today's Communication/Plan
-
Hospice consult requested. Hopefully home tomorrow with home hospice.
Assessment / Plan
Assessment / Plan
A/P: Patient is an 89y F with PMH significant for A-Fib, CHF, hypertension and dementia who presents to ED after outpatient US showed RLE DVT.
1. RLE DVT
- Very difficulty situation in patient with suspected CAA and significant associated [employer]IL [employer] bleeding risks.
- Hold anticoagulation per DPOA request
- IR eval for IVC filter placement appreciated - no IVF filter.
- Hematology evaluation for additional recommendations appreciated, no further treatments
- Monitor for increased LE pain or development of new chest discomfort, SOB, etc.
Plan is for hospice consult and home with hospice tomorrow
Spoke with hospice provider today, process started
2. Paroxysmal A-Fib
- Stable. Continue once daily amiodarone.
- Continue ASA 81mg only.
- s/p PPM in July 2024.
3. Chronic HFpEF
- Stable. No evidence of gross volume overload on current exam.
- Continue usual diuretic regimen / potassium supplementation.
- Follow I/Os, daily weights, etc.
4. CKD IV
- Stable. Renal function is at / near known baseline.
- Follow for any changes.
5. Chronic Anemia
- Stable. Hgb is at / near known baseline.
- Follow for changes.
6. Senile Dementia
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
- No significant behavioral issues, etc.
- agree with plan to go home with hospice
Code Status: DNR
Anticipated Discharge: Within 24 hours
Subjective/Interval History
-
Date of Service: November 02, 2024
comfortable. Family requests hospice consult.
Objective Data
-
Labs:
Laboratory Results
11/02/24
04:30
WBC 6.6
Hgb 9.4 L
Hct 27.8 L
Plt Count 168
Sodium 139
Potassium 3.8
Chloride 106
Carbon Dioxide 29
BUN 20 H
Creatinine 1.6 H
Glucose 106 H
Calcium 9.0
Vital Signs:
Vital Signs
Temp Pulse Resp BP Pulse Ox
98.3 F 73 16 114/65 97
11/02/24 11:04 11/02/24 11:04 11/02/24 11:04 11/02/24 11:04 11/02/24 11:04
Review of Systems
-
Unable to obtain full review of systems at this time due to: Dementia
Physical Exam
-
General: Well Developed, Well Nourished, No Apparent Distress and Comfortable
Respiratory: Clear to Auscultation
Cardiac: Regular Rhythm and S1/S2
GI: Soft
Musculoskeletal: No Clubbing and No Cyanosis
Skin: Warm and Dry
Neuro: Awake and Alert
Psych: Calm
Data Reviewed
-
Labs: Labs Reviewed by me
--- NOTE | 2024-11-02 14:23 | CM ---
Addendum entered by Usha Contreras 11/03/24 11:05:
CM notified by science specialist that pt does not meet for hospice care at this time. Plan for discharge home with referral to Palliative Care.
Original Note:
Case spoke with Dr. Kendrick who advised that family would like to take patient home with hospice care.
Referral sent via [facility] to Hospice for evaluation.
[2024-11-02 15:00] VITALS: BP 125/55
--- NOTE | 2024-11-02 16:44 | HOSPNOTE ---
Received referral - Spoke with patient's daughters Jimmy and Shalini - after discussion - the patient's severity of dementia is not to the point where she would be eligible for hospice benefits at this time. Family would like to discuss Palliative
care. Shalini Carrillo is the main contact and can be reached at [phone]
--- NOTE | 2024-11-02 16:51 | W.PN.UPDATE ---
Update Note
Progress Note Update
Message received from RN requesting downgrade from MS-tele to MS. Chart reviewed. Pt likely discharging to hospice tomorrow. Will d/c tele.
[2024-11-02] MEDS: LIPITOR 10 MG PO (21:21)
[2024-11-02] MEDS: MELATONIN 5 MG PO (21:21)
[2024-11-02 23:00] VITALS: BP 141/54
[2024-11-03 07:25] VITALS: BP 103/68
[2024-11-03] MEDS: APRESOLINE PO (08:57)
[2024-11-03] MEDS: ASPIR LOW (ENTERIC COATED) 81 MG PO (08:57)
[2024-11-03] MEDS: LEXAPRO 5 MG PO (08:57)
[2024-11-03] MEDS: LASIX 40 MG PO (08:57)
[2024-11-03] MEDS: PACERONE 200 MG PO (08:58)
[2024-11-03] MEDS: KCL 20 MEQ PO (08:58)
--- NOTE | 2024-11-03 12:36 | HOSPNOTE ---
Notified CM that patient does not meet hospice criteria at this time. Informed CM that family was interested in palliative care. CM to send referral to palliative care. Hospice will sign off at this time.
--- NOTE | 2024-11-03 12:39 | W.PN.HOSP.TC ---
Today's Communication/Plan
-
Discharge home with Palliative care with transition to hospice
Assessment / Plan
Assessment / Plan
A/P: Patient is an 89y F with PMH significant for A-Fib, CHF, hypertension and dementia who presents to ED after outpatient US showed RLE DVT.
CVS: S1-S2 normal
Chest: CTA B/L
Abdomen: Soft, NT / Bowel sounds present
Extremities: No pain mild edema right lower extremity
# RLE DVT
- Very difficulty situation in patient with suspected cerebral amyloid angiopathy and significant associated [employer] bleeding risks.
- Hold anticoagulation per DPOA request
- IR eval for IVC filter placement appreciated - no IVF filter.
- Hematology evaluation for additional recommendations appreciated, suggested only short-term anticoagulation for comfort
- Lymphedema treatments
- Monitor for increased LE pain or development of new chest discomfort, SOB, etc.
- No recent hospice evaluated, and said not appropriate for Hospice.
- Referral to [facility] hospice for palliative care, and transition to possible hospice for dementia, untreated DVT and multiple other medical problems.
# Paroxysmal A-Fib
- Stable. Continue once daily amiodarone.
- Continue ASA 81mg only.
- s/p PPM in July 2024.
# Anemia of chronic disease
# Chronic HFpEF
- Stable. No evidence of gross volume overload on current exam.
- Continue usual diuretic regimen / potassium supplementation.
# Hypertension-continue hydralazine
# CKD IV
- Stable. Renal function is at / near known baseline.
- Follow for any changes.
# Chronic Anemia
- Stable. Hgb is at / near known baseline.
- Follow for changes.
# DM2 without hyperglycemia -not on diabetes meds at home. Hemoglobin A1c 6.3% in June 2024.
# Depression-continue Lexapro
# Senile Dementia
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
# History of melanoma excision left leg 2006
# History of right breast lumpectomy 1987
# Code Status: DNR
Discussed with patient's daughter and caregiver at bedside. They are aware that without treating DVT can progress or cause PE. Daughter stated that she would rather mom have a PE and take her quickly then have a brain bleed. They are a bit
disappointed that patient does not qualify for hospice. She has a Botox injection for stress incontinence coming up next week and family is hoping that she will qualify for hospice after that they would like to transition. If not they would like
to keep her at home for comfort care. Patient really wants to go home and daughter wants to take the patient home today.
Discussed with case management
Discussed with nursing
Discussed with patient's daughter and caregiver at bedside
Time spent for discharge more than 35 minutes
Part of this note was created using voice recognition system. Occasional wrong word or��sound alike� substitutions may have inadvertently occurred due to the inherent limitations of voice recognition software. If noted kindly bring it to my
attention for correction.
Anticipated Discharge: Today
Subjective/Interval History
-
Date of Service: November 03, 2024
Objective Data
-
Vital Signs:
Vital Signs
Temp Pulse Resp BP Pulse Ox
98.1 F 64 18 103/68 95
11/03/24 07:25 11/03/24 08:57 11/03/24 07:25 11/03/24 08:57 11/03/24 09:30
I&O
11/02/24 11/03/24 11/04/24
06:59 06:59 06:59
Intake Total 800 / 800
Balance 800 / 800
--- NOTE | 2024-11-03 14:17 | W.DS.TRANS ---
Addendum entered and electronically signed by Seth Kirkpatrick MD 11/04/24 13:50:
Dictation- [id number]
Original Note:
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
-
Discharge Instructions:
Discharge Diagnosis/Procedures Right lower extremity DVT
Chronic HFpEF
Atrial fibrillation
CKD stage IV
Chronic anemia
Dementia
Amyloid angiopathy of the brain
Depression
Diet 2 Gram Sodium,Restrict fluids to 64 oz
Activity As tolerated,With assistance
Driving Restrictions No driving
Other Services VN
Instructions:
Stand-Alone Forms:
Changes to Home Medications: Yes
Discharge Medications:
DC Medications w/original date entered in [facility]
ohynnfev-rplb-svxf 8 mg-folic 400 mcg-K 50 mcg-lutein 300 mcg tablet (Centrum Silver Women) 1 ea PO DAILY Supplement 06/06/18
escitalopram oxalate 5 mg tablet 5 mg PO DAILY Mental Health/Anxiety 03/15/20
sennosides 8.6 mg tablet (senna) 2 tab PO BID PRN constipation 03/15/20
simvastatin 20 mg tablet 20 mg PO HS High cholesterol 03/15/20
aspirin 81 mg capsule 81 mg PO DAILY Blood Clot Prevention/Tx 05/12/23
furosemide 40 mg tablet (Lasix) 40 mg PO DAILY Fluid Retention/Swelling 11/01/24
potassium chloride 20 mEq tablet,extended release 20 meq PO DAILY Supplement 11/01/24
acetaminophen 325 mg tablet 650 mg (2 x 325 mg) PO Q4HPRN PRN pain #0 tabs 11/03/24
amiodarone 200 mg tablet 200 mg PO DAILY Arrhythmia #20 tabs 11/03/24
hydralazine 25 mg tablet 25 mg PO BID Blood pressure #0 tabs 11/03/24
Home Medication Changes
TYlenol new
Pending Results: No
--- NOTE | 2024-11-03 15:14 | CM ---
Dr. Kirkpatrick requested hospice referral to other agencies, mentioning [facility] in the order for hospice services.
Referrals sent for [facility], [facility], and [facility] hospice agencies for family to decide on the agency. She has a botox injection scheduled tomorrow which helps with her incontinence and family would like to have that done prior to hospice evaluation.
Pt will be discharged to home today via ambulance at 4PM.
[2024-11-03 15:30] VITALS: BP 122/58
== END 2024-11-03 16:31 | disposition home health service (06) | DRG 300 ==
LOC: 3 WEST ACU 01:10
PROVIDERS: Emergency Medicine; Internal Medicine; ADMITTING PHYSICIAN Hospitalist; ATTENDING PHYSICIAN Hospitalist; CONSULT PHYSICIAN Internal Medicine Hematology & Oncology; EMERGENCY PHYSICIAN Emergency Medicine; OTHER PHYSICIAN Internal Medicine Cardiovascular Disease
DX: I82.441 Acute embolism and thrombosis of right tibial vein (principal); E85.4 Organ-limited amyloidosis; I13.0 Hypertensive heart and chronic kidney disease with heart failure and stage 1 through stage 4 chronic kidney disease, or unspecified chronic kidney disease; F03.94 Unspecified dementia, unspecified severity, with anxiety; F03.93 Unspecified dementia, unspecified severity, with mood disturbance; N18.4 Chronic kidney disease, stage 4 (severe); I50.32 Chronic diastolic (congestive) heart failure; I44.7 Left bundle-branch block, unspecified; E11.22 Type 2 diabetes mellitus with diabetic chronic kidney disease; I68.0 Cerebral amyloid angiopathy; I48.0 Paroxysmal atrial fibrillation; F32.9 Major depressive disorder, single episode, unspecified; E66.9 Obesity, unspecified; D63.8 Anemia in other chronic diseases classified elsewhere; M85.80 Other specified disorders of bone density and structure, unspecified site; M19.90 Unspecified osteoarthritis, unspecified site; K59.00 Constipation, unspecified; E78.00 Pure hypercholesterolemia, unspecified; G47.33 Obstructive sleep apnea (adult) (pediatric); Z66 Do not resuscitate; Z60.2 Problems related to living alone; Z96.642 Presence of left artificial hip joint; Z86.73 Personal history of transient ischemic attack (TIA), and cerebral infarction without residual deficits; Z91.81 History of falling; Z90.710 Acquired absence of both cervix and uterus; Z85.820 Personal history of malignant melanoma of skin; Z85.42 Personal history of malignant neoplasm of other parts of uterus; Z90.722 Acquired absence of ovaries, bilateral; Z82.3 Family history of stroke; Z88.8 Allergy status to other drugs, medicaments and biological substances; Z79.82 Long term (current) use of aspirin; Z95.0 Presence of cardiac pacemaker
CPT/HCPCS: 73564; 80048; 80053; 85025; 85027; 85730; 93005; 93971; 96374; 97162; 99284